=== PATIENT | female | born 1930 | race Caucasian/White ===

== ENCOUNTER 2016-10-24 11:09 | Inpatient (IN) ==
[2016-10-24] MEDS ORDERED: VISTARIL INJ IM PRN (11:29)
[2016-10-24] MEDS ORDERED: ATROPINE SULFATE PFS IVP PRN (11:29)
[2016-10-24] MEDS ORDERED: TYLENOL PO PRN (11:29)
[2016-10-24] MEDS ORDERED: NITROSTAT SL PRN (11:29)
[2016-10-24] MEDS ORDERED: MORPHINE 4 MG/ML SYRINGE IVP PRN (11:29)
[2016-10-24] MEDS ORDERED: PHENERGAN WITH CODEINE 6.25/10 MG/5 ML PO PRN (11:29)
[2016-10-24 11:42] VITALS: BMI 23.1
[2016-10-24 11:59] LABS: BASOPHILS % (AUTO) 0.5 % (0.0-3.0); EOSINOPHILS # (AUTO) 0.1 K/ul (0.0-0.7); EOSINOPHILS % (AUTO) 0.9 % (0.0-7.0); HEMATOCRIT 40.9 % (37.0-47.0); HEMOGLOBIN 13.3 g/dl (12.0-16.0); IMMATURE GRANULOCYTE % (AUTO) 0.6 % (0.0-5.0); LYMPHOCYTES # (AUTO) 1.7 K/uL (0.60-3.4); LYMPHOCYTES % (AUTO) 25.7 (10.0-50.0); MEAN CORPUSCULAR HEMOGLOBIN 27.5 pg (27.0-31.0); MEAN CORPUSCULAR HGB CONC 32.5 (31.8-35.4); MEAN CORPUSCULAR VOLUME 84.5 fl (81.0-99.0); MONOCYTES # (AUTO) 0.6 K/uL (0.4-2.0); MONOCYTES % (AUTO) 8.8 (0-10); NEUTROPHILS # (AUTO) 4.2 K/ul (2.0-6.9); NEUTROPHILS % (AUTO) 63.5; PLATELET COUNT 182 10^3/uL (140-440); RED BLOOD COUNT 4.84 10^6/ul (4.20-5.40); WHITE BLOOD COUNT 6.61 K/ul (4.6-10.2)
[2016-10-24] MEDS ORDERED: DUONEB NEB ONE (12:01)
[2016-10-24] MEDS: DEXTROSE 5%-1/2NS IV SOLUTION 1,000 ML IV SCH (12:01)
[2016-10-24] MEDS: ALBUTEROL 0.083% NEB NEB SCH ×3 (12:07→23:12)
[2016-10-24] MEDS: ROCEPHIN 1 GM in SODIUM CHLORIDE 50 ML IV SCH (13:15)
[2016-10-24] MEDS ORDERED: NAPROXEN SODIUM PO PRN (13:44)
[2016-10-24] MEDS: SOLU-MEDROL 125 MG IVP SCH ×2 (13:49→20:21)
[2016-10-24] MEDS ORDERED: NITROSTAT SL SCH (14:00)
[2016-10-24 14:15] LABS: ALBUMIN 3.5 g/dL (3.4-5.0); ALBUMIN/GLOBULIN RATIO 0.88; ANION GAP 14.8; BILIRUBIN,TOTAL 1.14 mg/dL (0.00-1.20); BUN/CREATININE RATIO 17.85; CALCIUM 10.5 mg/dL (8.2-10.2); CREATININE 1.12 mg/dL (0.60-1.30); POTASSIUM 3.8 mmol/L (3.5-5.10); TOTAL PROTEIN 7.5 g/dL (5.8-8.1); TROPONIN I 0.02 ng/ml (0.0000-0.4000)
--- NOTE | 2016-10-24 14:16 | DI ---
EXAM: Chest two view, frontal and lateral views. HISTORY: Persistent cough. COMPARISON: 09/12/2016. FINDINGS: The heart size is normal. Stent present in the region of the left subclavian artery. The re is no pulmonary vascular congestion. The lungs are clear save for calcified granulomatous change s. No pleural effusion or pneumothorax is seen. No acute osseous abnormality identified. IMPRESSION: No acute cardiopulmonary process.
[2016-10-24] MEDS: ZITHROMAX 500 MG in SODIUM CHLORIDE 250 ML IV SCH (14:19)
[2016-10-24] MEDS: COLACE PO SCH ×2 (15:12→20:23)
[2016-10-24] MEDS: GLUCOPHAGE PO SCH (16:55)
[2016-10-24] MEDS: LASIX TAB PO SCH (16:55)
[2016-10-24] MEDS ORDERED: NON-FORMULARY MEDICATION (Metformin Hcl [Glucophage] 1,000 MG) PO SCH ×22 (17:30)
[2016-10-24 19:54] LABS: TROPONIN I 0.023 ng/ml (0.0000-0.4000)
[2016-10-24] MEDS: ARICEPT PO SCH (20:22)
[2016-10-24] MEDS: COZAAR PO SCH (20:22)
[2016-10-24] MEDS: NAMENDA PO SCH (20:22)
[2016-10-24] MEDS: CARDIZEM PO SCH (20:23)
[2016-10-24] MEDS: ZOCOR PO SCH (20:23)
[2016-10-24] MEDS ORDERED: NON-FORMULARY MEDICATION (Donepezil Hcl [Aricept] 5 MG) PO SCH ×11 (21:00)
[2016-10-24] MEDS ORDERED: ASPIRIN EC PO SCH (21:00)
[2016-10-25 01:06] LABS: BILIRUBIN,URINE Negative (NEGATIVE); KETONES,URINE Negative (NEGATIVE); LEUKOCYTE ESTERASE ,URINE Negative (NEGATIVE); NITRITE,URINE Negative (NEGATIVE); PH,URINE 6.5 (5-9); PROTEIN,URINE Negative (NEGATIVE); URINE, BLOOD Negative (NEGATIVE)
[2016-10-25 01:07] LABS: ADD URINE MICROSCOPIC NO
[2016-10-25] MEDS: DEXTROSE 5%-1/2NS IV SOLUTION 1,000 ML IV SCH (01:39)
[2016-10-25 04:47] LABS: BASOPHILS % (AUTO) 0.4 % (0.0-3.0); HEMATOCRIT 33.7 % (37.0-47.0); IMMATURE GRANULOCYTE % (AUTO) 0.6 % (0.0-5.0); LYMPHOCYTES # (AUTO) 0.6 K/uL (0.60-3.4); LYMPHOCYTES % (AUTO) 11.9 (10.0-50.0); MEAN CORPUSCULAR HEMOGLOBIN 27.8 pg (27.0-31.0); MEAN CORPUSCULAR HGB CONC 32.6 (31.8-35.4); MEAN CORPUSCULAR VOLUME 85.3 fl (81.0-99.0); MONOCYTES # (AUTO) 0.1 K/uL (0.4-2.0); MONOCYTES % (AUTO) 1.6 (0-10); NEUTROPHILS # (AUTO) 4.2 K/ul (2.0-6.9); NEUTROPHILS % (AUTO) 85.5; PLATELET COUNT 133 10^3/uL (140-440); RED BLOOD COUNT 3.95 10^6/ul (4.20-5.40); WHITE BLOOD COUNT 4.87 K/ul (4.6-10.2)
[2016-10-25] MEDS: ALBUTEROL 0.083% NEB NEB SCH ×4 (05:05→23:04)
[2016-10-25 05:15] LABS: ALBUMIN 2.7 g/dL (3.4-5.0); ALBUMIN/GLOBULIN RATIO 0.82; ANION GAP 17.8; BILIRUBIN,TOTAL 0.58 mg/dL (0.00-1.20); BUN/CREATININE RATIO 17.46; CALCIUM 8.7 mg/dL (8.2-10.2); CREATININE 1.26 mg/dL (0.60-1.30); POTASSIUM 3.8 mmol/L (3.5-5.10)
[2016-10-25] MEDS: SOLU-MEDROL 125 MG IVP SCH ×3 (05:21→21:02)
[2016-10-25] MEDS: LASIX TAB PO SCH ×2 (05:33→17:08)
[2016-10-25] MEDS ORDERED: HUMULIN R SUBCUT PRN (05:54)
[2016-10-25] MEDS ORDERED: HUMULIN R ONE (05:57)
[2016-10-25] MEDS: HUMULIN R SUBCUT PRN ×4 (06:04→22:48)
[2016-10-25] MEDS: CARDIZEM PO SCH ×2 (08:45→21:01)
[2016-10-25] MEDS: BALANCED B-100 PO SCH (08:45)
[2016-10-25] MEDS: MULTIVITAMIN PO SCH (08:45)
[2016-10-25] MEDS: ROCEPHIN 1 GM in SODIUM CHLORIDE 50 ML IV SCH (08:45)
[2016-10-25] MEDS: GLUCOPHAGE PO SCH ×2 (08:45→17:08)
[2016-10-25] MEDS: ASPIRIN EC PO SCH (08:45)
[2016-10-25] MEDS: COLACE PO SCH ×3 (08:45→21:01)
[2016-10-25] MEDS ORDERED: IRON MINERALS PO SCH (09:00)
[2016-10-25] MEDS ORDERED: MULTIVITAMIN PO SCH (09:00)
[2016-10-25] MEDS ORDERED: B COMPLEX WITH VITAMIN C PO SCH (09:00)
[2016-10-25] MEDS: ZITHROMAX 500 MG in SODIUM CHLORIDE 250 ML IV SCH (09:50)
--- NOTE | 2016-10-25 10:03 | PCM.PROG ---
Attending Provider: ATTENDING PROVIDER: Dr. MONICA KUHN DATE OF SERVICE: 10/25/16 SUBJECTIVE: This 86 year old WHITE/ F was hospitalized 10/24/16. The patient is hospitalized with acute bronchitis, cough, congestion, and dehydration which was treated as an outpatient with steroids and antibiotics without much improvement. The patient's blood sugar is elevated this morning at 475, likely from steroids. REVIEW OF SYSTEMS: (All negative at rest) CONSTITUTIONAL: No night sweats. No fatigue, malaise, lethargy. No fever or chills. HEENT: Eyes: No visual changes. No eye pain. No eye discharge. ENT: No runny nose. No epistaxis. No sinus pain. No odynophagia. No congestion. RESPIRATORY: No cough, no congestion. No hemoptysis. CARDIOVASCULAR: No angina symptoms. No CHF symptoms. No atypical chest pain for CAD. No palpitations. No shortness of breath. GASTROINTESTINAL: No abdominal pain. No nausea or vomiting. No diarrhea or constipation. No hematemesis. No hematochezia. GENITOURINARY: No urgency. No frequency. No dysuria. No hematuria. No obstructive symptoms. No discharge. No pain. No significant abnormal bleeding. MUSCULOSKELETAL: No musculoskeletal pain; no joint swelling. NEUROLOGICAL: Awake, alert, oriented to person. No headache. No neck pain. No syncope. No seizures. No dizziness. PSYCHIATRIC: Not anxious. No depression. No suicidal thoughts. No homicidal thoughts. SKIN: No rash. No lesions. No wounds. ENDOCRINE: No unexplained weight loss. No weight gain. HEMATOLOGIC/LYMPHATIC: No anemia. No purpura. No petechiae. No prolonged or excessive bleeding. No palpable lymph nodes. PHYSICAL EXAMINATION: GENERAL: The patient is awake, alert and oriented to person in no distress. VITAL SIGNS: Temperature 97.2 F, Pulse 66, Respiratory Rate 12, BP 144/65, Pulse Ox 96% HEENT: Head normocephalic, atraumatic. Eyes: Extraocular muscles are intact. Pupils are equal, round and reactive to light and accommodation. Ears: No lesions. Nose appeared normal. Throat: No exudate or erythema. NECK: Supple. No JVD, no carotid bruit. No lymphadenopathy or thyromegaly. LUNGS: Decreased breath sounds with mild wheeze. Percussion note normal. Chest symmetrical. HEART: S1, S2, no S3. No murmurs. No cyanosis or clubbing. No ascites. Pulses: Dorsalis pedis and posterior tibial pulses +1 to +2 both sides. ABDOMEN: Soft. Non-tender. Bowel sounds active. No CVA tenderness. No mass felt. EXTREMITIES: No edema. Full range of motion of all extremities, equal. NEUROLOGIC: No focal deficit. Cranial nerves II through XII are grossly intact. No headache, no double vision or headache. SKIN: Not dry. Intact. Turgor-normal. LYMPHATIC: No palpable lymph nodes/no lymphedema. MUSCULOSKELETAL: Normal joints with no swelling. Muscle tone is normal. LAB REVIEW: 10/25/16 04:47 10/25/16 04:47 10/25/16 04:47: WBC 4.87, RBC 3.95 L, Hgb 11.0 L, Hct 33.7 L D, MCV 85.3, MCH 27.8, MCHC 32.6, RDW Coeff of Ray 13.9, Plt Count 133 L, Immature Gran % (Auto) 0.6, Neut % (Auto) 85.5, Lymph % (Auto) 11.9, [place] % (Auto) 1.6, Eos % (Auto) 0.0, Baso % (Auto) 0.4, Immature Gran # (Auto) 0.0, Neut # 4.2, Lymph # 0.6, [place] # 0.1 L, Eos # 0.0, Baso # 0.0, Sodium 138, Potassium 3.8, Chloride 99, Carbon Dioxide 25, Anion Gap 17.8, BUN 22 H, Creatinine 1.26, Estimated GFR ( MDRD) 40.00, BUN/Creatinine Ratio 17.46, Glucose 475 H D, Calcium 8.7, Total Bilirubin 0.58, AST 10 L, ALT 11 L, Alkaline Phosphatase 110 D, Total Protein 6.0, Albumin 2.7 L, Globulin 3.3, Albumin/Globulin Ratio 0.82 10/25/16 00:48: Urine Color Yellow, Urine Clarity Clear, Urine pH 6.5, Ur Specific [place] 1.015, Urine Protein Negative, Urine Glucose (UA) Negative, Urine Ketones Negative, Urine Blood Negative, Urine Nitrite Negative, Urine Bilirubin Negative, Urine Urobilinogen 0.2, Ur Leukocyte Esterase Negative 10/24/16 19:30: Total Creatine Kinase 16, Myoglobin 21, Troponin I 0.0230 10/24/16 11:45: WBC 6.61, RBC 4.84, Hgb 13.3, Hct 40.9, MCV 84.5, MCH 27.5, MCHC 32.5, RDW Coeff of Ray 14.1, Plt Count 182, Immature Gran % (Auto) 0.6, Neut % (Auto) 63.5, Lymph % (Auto) 25.7, [place] % (Auto) 8.8, Eos % (Auto) 0.9, Baso % (Auto) 0.5, Immature Gran # (Auto) 0.0, Neut # 4.2, Lymph # 1.7, [place] # 0.6, Eos # 0.1, Baso # 0.0, Sodium 141, Potassium 3.8, Chloride 99, Carbon Dioxide 31, Anion Gap 14.8, BUN 20 H, Creatinine 1.12, Estimated GFR (MDRD) 46.00, BUN/Creatinine Ratio 17.85, Glucose 190 H, Calcium 10.5 H, Total Bilirubin 1.14, AST 15, ALT 15, Alkaline Phosphatase 140, Total Creatine Kinase 20, Myoglobin 29, Troponin I 0.0200, Total Protein 7.5, Albumin 3.5, Globulin 4.0, Albumin/Globulin Ratio 0.88, TSH 0.789, Free T4 1.00 ASSESSMENT: 1. Acute bronchitis/COPD, improving 2. Dementia 3. Diabetes mellitus PLAN: 1. Discontinue IV fluids. 2. Regular diet. 3. Accu-Cheks. 4. Sliding scale with coverage (blood sugar is 475 this a.m. likely due to steroids) 5. Continue Steroids, antibiotics and nebs. Plan and coordination of the patient's care discussed in the presence of Economics Consultant and nurse. CONDITION: Stable SCRIBED BY: SADIE JOHNSON, Silk Spreader scribed while in presence of service performed by Dr. MONICA KUHN on 10/25/16 ([id number])
--- NOTE | 2016-10-25 15:10 | HP ---
DATE OF SERVICE: 10/24/16 REASON FOR HOSPITALIZATION/HISTORY OF PRESENT ILLNESS: Complaints of cough, congestion, sweats, lost five pounds in 2 weeks and yellowish sputum. On two rounds of Antibiotics with steroids and not much improvement. Appetite not good/staggering. The patient says she is weak. REVIEW OF SYSTEMS: CONSTITUTIONAL: Fever and fatigue. HEENT: Sinus drainage, no sore throat. RESPIRATORY: Cough, no congestion. CARDIOVASCULAR: No atypical chest pain for coronary artery disease. No angina , CHF symptoms, palpitations. Mild shortness of breath. GASTROINTESTINAL: No melena or abdominal pain. No GERD. GENITOURINARY: No hematuria, no prostatism, no polyuria. PEDIATRICIAN: No blackout, Dizziness, no headache, no double vision. Gait ataxia. MUSCULOSKELETAL: Osteoarthritis pain, no joint swelling. ENDOCRINE: Weight loss-5 pounds in 2 weeks. No weight gain. SKIN: Dry, no rash. PSYCHIATRIC: Anxious, no depression, no suicidal thoughts, no homicidal thoughts. SOCIAL HISTORY: Marital Status: with 8 children and 3 alive. Alcohol Usage: No . Tobacco Usage: No . Family history: Father TIA and cancer of the lung, Mother diabetes mellitus and chronic kidney disease, Brothers two one hypertension and cancer of bladder and one is 71 years old with diabetes mellitus. One sister 87 year old diabetes mellitus, hypertension and vascular disease. PAST MEDICAL AND SURGICAL HISTORY: COPD Hypertension/LVH Dyslipidemia Carotid stenosis Chronic kidney disease Diabetes Mellitus type 2 Congestive heart disease Partial abdominal hysterectomy-1977 Tonsillectomy- childhood. Adenoidectomy-childhood. MEDICATIONS: Namenda 10mg PO twice a day Aricept 5mg PO daily Simvastatin 40mg PO daily Meclizine 12.5mg PO three times a day Glimepiride 2mg PO daily Carvedilol 12.5mg PO twice a day Brovana 15mcg inhale 2 milliliters by inhalation twice a day Losartan 50mg PO daily Metformin 1,000mg PO twice a day with morning and evening meals. Furosemide 40mg take one tablet PO twice a day Albuterol Sulfate inhale 3 milliliters by nebulization Nitroglycerin 0.4mg sublingual as first sign of an attack Proventil 90mcg inhale 2 puffs by inhalation every 6 hours Fish oil 1000 tablet take two PO twice a day Aspirin 81mg PO daily Spectravite once daily 2 fruit chews Aleve 2 tablets PO pain PRN Super B complex one pill in AM Diltiazem 60mg One am and One PM. ALLERGIES: No know allergies PHYSICAL EXAMINATION: V/S: Pulse 100, blood pressure 142/6, Temperature 98 and O2 Sat 92%. GENERAL APPEARANCE: Oriented times three. HEENT: Normal. NECK: No JVP, no bruits. RESPIRATORY: Lungs are clear, decreased breath sounds. CARDIOVASCULAR: S1, S2, no S3, no murmurs. No cyanosis, clubbing. No ascites. GI/ABDOMEN: No tenderness. Bowel sounds are active. EXTREMITIES: edema, pulses +1, equal. PEDIATRICIAN: Deep tendon reflexes, sensory, motor and gait all normal. RECTAL: Refused. PELVIC: Advised yearly; Cervix, vaginal, ovaries, Papsmear and breast examinations. Refused bone density, discussed foot care and refused Colocare. ASSESSMENT: 1. Acute bronchitis 2. Weakness 3. Ataxia 4. Pleuritic pain 5. COPD 6. Dementia 7. Hypertension/ LVH 8. Dyslipidemia 9. Carotid stenosis 10. 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 Cath 2006 Dr. Morgan 13. Vitamin B12 deficiency PLAN: 1. Admit regular 2. Telemetry orders 3. Sputum for culture 4. Blood cultures x2 5. 1000 cc D5/1/2 normal saline 12 hourly 6. Rocephin 1 gram IV Piggyback 24 hours 7. Zithromax 500mg PO daily x3 8. CBC and CMP daily AM 9. Continue all home medications. 10. Solu-Medrol 125mg IV now and Q 8 hourly 11. NEBS- Albuterol four times a day daily 12. T4 and TSH 13. Phenergan with codeine two teaspoons PO four times a day PRN for cough 14. Colace 100mg three times a day daily. TIME SPENT: More than 70 minutes. MTDD
[2016-10-25] MEDS: NAMENDA PO SCH (21:00)
[2016-10-25] MEDS: ZOCOR PO SCH (21:00)
[2016-10-25] MEDS: COZAAR PO SCH (21:01)
[2016-10-25] MEDS: ARICEPT PO SCH (21:01)
[2016-10-26] MEDS: ALBUTEROL 0.083% NEB NEB SCH ×4 (04:58→22:38)
[2016-10-26] MEDS: LASIX TAB PO SCH ×2 (05:44→16:58)
[2016-10-26] MEDS: SOLU-MEDROL 125 MG IVP SCH (05:45)
[2016-10-26] MEDS: HUMULIN R SUBCUT PRN ×4 (06:40→22:11)
[2016-10-26 06:43] LABS: BASOPHILS % (AUTO) 0.1 % (0.0-3.0); HEMATOCRIT 36.2 % (37.0-47.0); HEMOGLOBIN 11.8 g/dl (12.0-16.0); LYMPHOCYTES # (AUTO) 0.8 K/uL (0.60-3.4); LYMPHOCYTES % (AUTO) 4.2 (10.0-50.0); MEAN CORPUSCULAR HEMOGLOBIN 27.5 pg (27.0-31.0); MEAN CORPUSCULAR HGB CONC 32.6 (31.8-35.4); MEAN CORPUSCULAR VOLUME 84.4 fl (81.0-99.0); MONOCYTES # (AUTO) 0.4 K/uL (0.4-2.0); MONOCYTES % (AUTO) 2.4 (0-10); NEUTROPHILS # (AUTO) 16.5 K/ul (2.0-6.9); NEUTROPHILS % (AUTO) 92.3; PLATELET COUNT 163 10^3/uL (140-440); RED BLOOD COUNT 4.29 10^6/ul (4.20-5.40); WHITE BLOOD COUNT 17.91 K/ul (4.6-10.2)
[2016-10-26 07:21] LABS: ALBUMIN 3.2 g/dL (3.4-5.0); ALBUMIN/GLOBULIN RATIO 0.86; ANION GAP 21.3; BILIRUBIN,TOTAL 0.46 mg/dL (0.00-1.20); BUN/CREATININE RATIO 18.11; CALCIUM 9.4 mg/dL (8.2-10.2); CREATININE 1.38 mg/dL (0.60-1.30); POTASSIUM 3.3 mmol/L (3.5-5.10); TOTAL PROTEIN 6.9 g/dL (5.8-8.1)
[2016-10-26] MEDS ORDERED: KEFLEX PO SCH (09:00)
--- NOTE | 2016-10-26 09:18 | PCM.PROG ---
Attending Provider: ATTENDING PROVIDER: Dr. MONICA KUHN DATE OF SERVICE: 10/26/16 SUBJECTIVE: This 86 year old WHITE/ F was hospitalized 10/24/16. The patient is admitted with acute bronchitis. The patient is feeling much better. She has been up and about with assistance. REVIEW OF SYSTEMS: CONSTITUTIONAL: No night sweats. No fatigue, malaise, lethargy. No fever or chills. HEENT: Eyes: No visual changes. No eye pain. No eye discharge. ENT: No runny nose. No epistaxis. No sinus pain. No odynophagia. No congestion. RESPIRATORY: No cough, no congestion. No hemoptysis. CARDIOVASCULAR: No angina symptoms. No CHF symptoms. No atypical chest pain for CAD. No palpitations. No shortness of breath. GASTROINTESTINAL: No abdominal pain. No nausea or vomiting. No diarrhea or constipation. No hematemesis. No hematochezia. GENITOURINARY: No urgency. No frequency. No dysuria. No hematuria. No obstructive symptoms. No discharge. No pain. No significant abnormal bleeding. MUSCULOSKELETAL: No musculoskeletal pain; no joint swelling. NEUROLOGICAL: Awake, alert, oriented to time, place and person. No headache. No neck pain. No syncope. No seizures. No dizziness. PSYCHIATRIC: Not anxious. No depression. No suicidal thoughts. No homicidal thoughts. SKIN: No rash. No lesions. No wounds. ENDOCRINE: No unexplained weight loss. No weight gain. HEMATOLOGIC/LYMPHATIC: No anemia. No purpura. No petechiae. No prolonged or excessive bleeding. No palpable lymph nodes. PHYSICAL EXAMINATION: GENERAL: The patient is awake, alert and oriented, sitting in chair in no distress. VITAL SIGNS: Temperature 97.8 F, Pulse 97, Respiratory Rate 14, BP 140/65, Pulse Ox 97% HEENT: Head normocephalic, atraumatic. Eyes: Extraocular muscles are intact. Pupils are equal, round and reactive to light and accommodation. Ears: No lesions. Nose appeared normal. Throat: No exudate or erythema. NECK: Supple. No JVD, no carotid bruit. No lymphadenopathy or thyromegaly. LUNGS: Decreased breath sounds. Clear to auscultation. Percussion note normal. Chest symmetrical. HEART: S1, S2, no S3. No murmurs. No cyanosis or clubbing. No ascites. Pulses: Dorsalis pedis and posterior tibial pulses +1 to +2 both sides. ABDOMEN: Soft. Non-tender. Bowel sounds active. No CVA tenderness. No mass felt. EXTREMITIES: No edema. Full range of motion of all extremities, equal. NEUROLOGIC: No focal deficit. Cranial nerves II through XII are grossly intact. No headache, no double vision or headache. SKIN: Not dry. Intact. Turgor-normal. LYMPHATIC: No palpable lymph nodes/no lymphedema. MUSCULOSKELETAL: Normal joints with no swelling. Muscle tone is normal. LAB REVIEW: 10/26/16 05:30 10/26/16 05:30 10/26/16 05:30: WBC 17.91 H D, RBC 4.29, Hgb 11.8 L, Hct 36.2 L, MCV 84.4, MCH 27.5, MCHC 32.6, RDW Coeff of Ray 14.1, Plt Count 163, Immature Gran % (Auto) 1.0, Neut % (Auto) 92.3, Lymph % (Auto) 4.2 L, [place] % (Auto) 2.4, Eos % (Auto) 0.0, Baso % (Auto) 0.1, Immature Gran # (Auto) 0.2, Neut # 16.5 H, Lymph # 0.8, Iron # 0.4, Eos # 0.0, Baso # 0.0, Sodium 139, Potassium 3.3 L, Chloride 97 L, Carbon Dioxide 24, Anion Gap 21.3, BUN 25 H, Creatinine 1.38 H, Estimated GFR ( MDRD) 36.00, BUN/Creatinine Ratio 18.11, Glucose 321 H, Calcium 9.4, Total Bilirubin 0.46, AST 10 L, ALT 14, Alkaline Phosphatase 114, Total Protein 6.9, Albumin 3.2 L, Globulin 3.7, Albumin/Globulin Ratio 0.86 ASSESSMENT: 1. Acute pneumonitis/dehydration all resolved 2. Dementia 3. Diabetes mellitus PLAN: 1. Solu-Cortef 2. Prednisone 10 mg p.o. b.i.d. 3. Keflex 500 mg t.i.d. daily for five days 4. Stop Rocephin Plan and coordination of the patient's care discussed in the presence of Community Organization Director and nurse. CONDITION: Stable SCRIBED BY: SADIE JOHNSON, Pillow Filler scribed while in presence of service performed by Dr. MONICA KUHN on 10/26/16 ([id number])
[2016-10-26] MEDS: BALANCED B-100 PO SCH (09:27)
[2016-10-26] MEDS: ASPIRIN EC PO SCH (09:27)
[2016-10-26] MEDS: CARDIZEM PO SCH ×2 (09:28→22:17)
[2016-10-26] MEDS: COLACE PO SCH ×3 (09:28→22:13)
[2016-10-26] MEDS: GLUCOPHAGE PO SCH ×2 (09:28→16:58)
[2016-10-26] MEDS: MULTIVITAMIN PO SCH (09:29)
[2016-10-26] MEDS: KEFLEX PO SCH ×3 (09:29→22:13)
[2016-10-26] MEDS: PREDNISONE PO SCH ×2 (09:30→17:28)
[2016-10-26] MEDS: ZITHROMAX 500 MG in SODIUM CHLORIDE 250 ML IV SCH (09:31)
[2016-10-26] MEDS: MICRO-K CAP PO SCH (22:14)
[2016-10-26] MEDS: NAMENDA PO SCH (22:16)
[2016-10-26] MEDS: COZAAR PO SCH (22:18)
[2016-10-26] MEDS: ZOCOR PO SCH (22:19)
[2016-10-26] MEDS: ARICEPT PO SCH (22:22)
[2016-10-27] MEDS: ALBUTEROL 0.083% NEB NEB SCH ×2 (05:04→11:15)
[2016-10-27] MEDS: KEFLEX PO SCH (05:52)
[2016-10-27] MEDS: LASIX TAB PO SCH (05:53)
[2016-10-27 06:24] LABS: BASOPHILS % (AUTO) 0.1 % (0.0-3.0); HEMATOCRIT 35.4 % (37.0-47.0); HEMOGLOBIN 11.7 g/dl (12.0-16.0); IMMATURE GRANULOCYTE % (AUTO) 1.6 % (0.0-5.0); LYMPHOCYTES # (AUTO) 1.1 K/uL (0.60-3.4); MEAN CORPUSCULAR HEMOGLOBIN 27.7 pg (27.0-31.0); MEAN CORPUSCULAR HGB CONC 33.1 (31.8-35.4); MEAN CORPUSCULAR VOLUME 83.9 fl (81.0-99.0); MONOCYTES # (AUTO) 0.5 K/uL (0.4-2.0); MONOCYTES % (AUTO) 2.6 (0-10); NEUTROPHILS # (AUTO) 16.8 K/ul (2.0-6.9); NEUTROPHILS % (AUTO) 89.7; PLATELET COUNT 179 10^3/uL (140-440); RED BLOOD COUNT 4.22 10^6/ul (4.20-5.40)
[2016-10-27] MEDS: HUMULIN R SUBCUT PRN (06:26)
[2016-10-27 06:54] LABS: ALBUMIN 3.3 g/dL (3.4-5.0); ALBUMIN/GLOBULIN RATIO 1.06; ANION GAP 17.5; BILIRUBIN,TOTAL 0.56 mg/dL (0.00-1.20); BUN/CREATININE RATIO 24.82; CALCIUM 9.8 mg/dL (8.2-10.2); CREATININE 1.45 mg/dL (0.60-1.30); POTASSIUM 3.5 mmol/L (3.5-5.10); TOTAL PROTEIN 6.4 g/dL (5.8-8.1)
[2016-10-27] MEDS: GLUCOPHAGE PO SCH (08:38)
[2016-10-27] MEDS: BALANCED B-100 PO SCH (08:38)
[2016-10-27] MEDS: MICRO-K CAP PO SCH (08:38)
[2016-10-27] MEDS: CARDIZEM PO SCH (08:38)
[2016-10-27] MEDS: PREDNISONE PO SCH (08:38)
[2016-10-27] MEDS: ASPIRIN EC PO SCH (08:38)
[2016-10-27] MEDS: COLACE PO SCH (08:38)
[2016-10-27] MEDS: MULTIVITAMIN PO SCH (08:39)
--- NOTE | 2016-10-27 09:48 | PCM.PROG ---
Attending Provider: ATTENDING PROVIDER: Dr. MONICA KUHN DATE OF SERVICE: 10/27/16 SUBJECTIVE: This 86 year old WHITE/ F was hospitalized 10/24/16. The patient is hospitalized with acute bronchitis/pneumonitis and dehydration. The patient' s condition is improved. She has no complaints this morning. REVIEW OF SYSTEMS: CONSTITUTIONAL: No night sweats. No fatigue, malaise, lethargy. No fever or chills. HEENT: Eyes: No visual changes. No eye pain. No eye discharge. ENT: No runny nose. No epistaxis. No sinus pain. No odynophagia. No congestion. RESPIRATORY: No cough, no congestion. No hemoptysis. CARDIOVASCULAR: No angina symptoms. No CHF symptoms. No atypical chest pain for CAD. No palpitations. No shortness of breath. GASTROINTESTINAL: Appetite is good. No abdominal pain. No nausea or vomiting. No diarrhea or constipation. No hematemesis. No hematochezia. GENITOURINARY: No urgency. No frequency. No dysuria. No hematuria. No obstructive symptoms. No discharge. No pain. No significant abnormal bleeding. MUSCULOSKELETAL: No musculoskeletal pain; no joint swelling. NEUROLOGICAL: Awake, alert, oriented to time, place and person. No headache. No neck pain. No syncope. No seizures. No dizziness. PSYCHIATRIC: Not anxious. No depression. No suicidal thoughts. No homicidal thoughts. SKIN: No rash. No lesions. No wounds. ENDOCRINE: No unexplained weight loss. No weight gain. HEMATOLOGIC/LYMPHATIC: No anemia. No purpura. No petechiae. No prolonged or excessive bleeding. No palpable lymph nodes. PHYSICAL EXAMINATION: GENERAL: The patient is awake, alert and oriented, sitting in bed in no distress. VITAL SIGNS: Temperature 97.7 F, Pulse 88, Respiratory Rate 14, BP 131/55, Pulse Ox 94% HEENT: Head normocephalic, atraumatic. Eyes: Extraocular muscles are intact. Pupils are equal, round and reactive to light and accommodation. Ears: No lesions. Nose appeared normal. Throat: No exudate or erythema. NECK: Supple. No JVD, no carotid bruit. No lymphadenopathy or thyromegaly. LUNGS: Clear to auscultation. Percussion note normal. Chest symmetrical. HEART: S1, S2, no S3. No murmurs. No cyanosis or clubbing. No ascites. Pulses: Dorsalis pedis and posterior tibial pulses +1 to +2 both sides. ABDOMEN: Soft. Non-tender. Bowel sounds active. No CVA tenderness. No mass felt. EXTREMITIES: No edema. Full range of motion of all extremities, equal. NEUROLOGIC: No focal deficit. Cranial nerves II through XII are grossly intact. No headache, no double vision or headache. SKIN: Not dry. Intact. Turgor-normal. LYMPHATIC: No palpable lymph nodes/no lymphedema. MUSCULOSKELETAL: Normal joints with no swelling. Muscle tone is normal. LAB REVIEW: 10/27/16 05:30 10/27/16 05:30 10/27/16 05:30: WBC 18.70 H, RBC 4.22, Hgb 11.7 L, Hct 35.4 L, MCV 83.9, MCH 27.7, MCHC 33.1, RDW Coeff of Ray 14.3, Plt Count 179, Immature Gran % (Auto) 1.6, Neut % (Auto) 89.7, Lymph % (Auto) 6.0 L, [place] % (Auto) 2.6, Eos % (Auto) 0.0, Baso % (Auto) 0.1, Immature Gran # (Auto) 0.3, Neut # 16.8 H, Lymph # 1.1, [place] # 0.5, Eos # 0.0, Baso # 0.0, Sodium 137, Potassium 3.5, Chloride 94 L, Carbon Dioxide 29, Anion Gap 17.5, BUN 36 H, Creatinine 1.45 H, Estimated GFR ( MDRD) 34.00, BUN/Creatinine Ratio 24.82, Glucose 309 H, Calcium 9.8, Total Bilirubin 0.56, AST 16, ALT 17, Alkaline Phosphatase 113, Total Protein 6.4, Albumin 3.3 L, Globulin 3.1, Albumin/Globulin Ratio 1.06 ASSESSMENT: 1. Acute bronchitis, pneumonitis and dehydration resolved. 2. COPD. PLAN: 1. Discharge home. 2. Keflex 500 mg b.i.d times 5 days. 3. D/C telemetry. 4. Prednisone 10 mg p.o. b.i.d. for five days. Plan and coordination of the patient's care discussed in the presence of Enterprise Resource Planner and nurse. CONDITION: Stable SCRIBED BY: SADIE JOHNSON, Auto Haulaway Driver scribed while in presence of service performed by Dr. MONICA KUHN on 10/27/16 ([id number])
[2016-10-27 10:20] VITALS: BP 146/54; TEMP 98.1
--- NOTE | 2016-10-27 13:45 | CM.DICTOOL ---
ADMISSION: 10/24/16 11:09 DISCHARGE: 10/27/16 DATE OF SERVICE: 10/27/16 FINAL DIAGNOSIS ACUTE BRONCHITIS COPD HYPERTENSION CAD DYSLIPIDEMIA DM, TYPE 2 ARTHRITIS DEMENTIA APPENDECTOMY HYSTERECTOMY LAST VITALS Temp Pulse Resp BP Pulse Ox 97.7 F 88 14 131/55 L 94 L 10/27/16 06:00 10/27/16 06:00 10/27/16 06:00 10/27/16 06:00 10/27/16 06:00 ACTIVE HOME MEDICATIONS Aspirin (Aspirin Ec) 81 mg PO DAILYWM [facility] Last Admin: 10/27/16 08:38 Dose: 81 mg Cephalexin (Keflex) 500 mg PO Q8HR [facility] x5 DAYS Last Admin: 10/27/16 05:52 Dose: 500 mg Diltiazem HCl (Cardizem) 60 mg PO Q12HR [facility] Last Admin: 10/27/16 08:38 Dose: 60 mg Donepezil HCl (Aricept) 5 mg PO BEDTIME [facility] Last Admin: 10/26/16 22:22 Dose: 5 mg Furosemide (Lasix Tab) 40 mg PO BIDAC [facility] Last Admin: 10/27/16 05:53 Dose: 40 mg Losartan Potassium (Cozaar) 50 mg PO BEDTIME [facility] Last Admin: 10/26/16 22:18 Dose: 50 mg Memantine (Namenda) 10 mg PO BEDTIME [facility] Last Admin: 10/26/16 22:16 Dose: 10 mg Metformin HCl (Glucophage) 1,000 mg PO BIDWM [facility] Last Admin: 10/27/16 08:38 Dose: 1,000 mg Multivitamins (Multivitamin) 2 cap PO DAILY [facility] Last Admin: 10/27/16 08:39 Dose: 2 cap Nitroglycerin (Nitrostat) 0.4 mg SL Q5MIN X 3 DOSES PRN PRN Reason: Chest Pain Non-Formulary Medication (Naproxen Sodium [Aleve]) 2 tab PO DAILY PRN PRN Reason: pain Potassium Chloride (Micro-K Cap) 10 meq PO BID [facility] Last Admin: 10/27/16 08:38 Dose: 10 meq Prednisone (Prednisone) 10 mg PO BIDWM [facility] x 5 DAYS Last Admin: 10/27/16 08:38 Dose: 10 mg Simvastatin (Zocor) 40 mg PO BEDTIME [facility] Last Admin: 10/26/16 22:19 Dose: 40 mg Vitamin B Complex with Vitamin C 1 tab DAILY [facility] Last Admin: 10/27/16 08:38 Dose: 1 tab denotes medications that were added during this hospital stay that will be continued at discharge ALLERGIES No Known Allergies Allergy (Verified 07/03/16 10:24) NEW PRESCRIPTIONS: PREDNISONE 10 MG, TAKE ONE TABLET BY MOUTH TWICE DAILY WITH FOOD FOR 5 (FIVE) DAYS MICRO K 10 MEQ, TAKE ONE TABLET BY MOUTH DAILY KEFLEX 500 MG, TAKE ONE TABLET BY MOUTH EVERY 12 HOURS FOR 5 (FIVE) DAYS ONLY SMOKING: NON SMOKER DISEASE SPECIFIC EDUCATION: BRONCHITIS/PNEUMONITIS HOME MEDICATIONS NEW PRESCRIPTIONS FOLLOW UP ACTIVITY NUTRITION ADVANCE DIRECTIVE/LIVING WILL LAB REVIEW: 10/27/16 05:30 10/27/16 05:30 10/27/16 05:30: WBC 18.70 H, RBC 4.22, Hgb 11.7 L, Hct 35.4 L, MCV 83.9, MCH 27.7, MCHC 33.1, RDW Coeff of Ray 14.3, Plt Count 179, Immature Gran % (Auto) 1.6, Neut % (Auto) 89.7, Lymph % (Auto) 6.0 L, [place] % (Auto) 2.6, Eos % (Auto) 0.0, Baso % (Auto) 0.1, Immature Gran # (Auto) 0.3, Neut # 16.8 H, Lymph # 1.1, [place] # 0.5, Eos # 0.0, Baso # 0.0, Sodium 137, Potassium 3.5, Chloride 94 L, Carbon Dioxide 29, Anion Gap 17.5, BUN 36 H, Creatinine 1.45 H, Estimated GFR ( MDRD) 34.00, BUN/Creatinine Ratio 24.82, Glucose 309 H, Calcium 9.8, Total Bilirubin 0.56, AST 16, ALT 17, Alkaline Phosphatase 113, Total Protein 6.4, Albumin 3.3 L, Globulin 3.1, Albumin/Globulin Ratio 1.06 PLAN: DISCHARGE HOME TODAY RETURN TO SEE DR. KUHN IN 5-7 DAYS. PLEASE CALL HIS OFFICE ([phone]) TO SCHEDULE YOUR FOLLOW UP VISIT RESUME YOUR HOME MEDICATIONS PER LIST PROVIDED BY THE NURSING STAFF NEW PRESCRIPTIONS: PREDNISONE 10 MG, TAKE ONE TABLET BY MOUTH TWICE DAILY WITH FOOD FOR 5 (FIVE) DAYS MICRO K 10 MEQ, TAKE ONE TABLET BY MOUTH DAILY KEFLEX 500 MG, TAKE ONE TABLET BY MOUTH EVERY 12 HOURS FOR 5 (FIVE) DAYS ONLY ACTIVITY: GET PLENTY OF REST AT HOME. GRADUALLY INCREASE YOUR ACTIVITY LEVEL (WALK DAILY ) ACCORDING TO YOUR TOLERATION DIET: CONSISTENT CARBS STAY WELL HYDRATED SUMMARY: THE PATIENT IS ALERT AND ORIENTED X3. SHE CURRENTLY RESIDES AT HOME ALONE. HER BROTHER IS VERY SUPPORTIVE OF HER NEEDS AND PROVIDES TRANSPORTATION WHEN NEEDED. AT HOME SHE HAS A ROLLATOR, CANES X2, BSC, SHOWER CHAIR, OXYGEN ( [facility] HOME PATIENT), PORTABLE O2 SYSTEM X2 ([facility] HOME PATIENT), NEBULIZER ([facility] HOME PATIENT), GLUCOMETER AND BLOOD SUGAR TESTING SUPPLIES, PORTABLE BLOOD PRESSURE MONITOR. SHE DECLINES OFFERS FOR OUTPATIENT CASE MANAGEMENT BY [facility]. SHE DESIRES TO RETURN TO HER HOME AT DISCHARGE. MS. VOSS'S SKIN TURGOR IS FAIR TO GOOD. SHE HAS NO DECUBITUS ULCERS PRESENT AT DISCHARGE. HER HYDRATION STATUS IS IMPROVED. SHE IS TAKING LIQUIDS AND EATING VERY WELL. SHE IS AWARE OF DISCHARGE PLANS AND IS AGREEABLE FOR DISCHARGE TODAY. MONICA KUHN M.D.
--- NOTE | 2016-11-01 14:07 | DS ---
DATE OF SERVICE: 10/27/16 FINAL DIAGNOSIS: 1. ACUTE BRONCHITIS 2. COPD 3. HYPERTENSION 4. CAD 5. DYSLIPIDEMIA 6. DIABETES MELLITUS, TYPE 2 7. ARTHRITIS 8. DEMENTIA 9. APPENDECTOMY 10. HYSTERECTOMY DISCHARGE INSTRUCTIONS: Followup appointment: Return to see Dr. Davidson in 5 to 7 days. MEDICATIONS AT DISCHARGE: Simvastatin 40 mg p.o. bedtime Metformin 1,000 mg p.o. b.i.d. with meal Losartan (Cozaar) 50 mg p.o. bedtime Memantine (Namenda) 10 mg p.o. bedtime Donepezil (Aricept) 5 mg p.o. bedtime B complex with Vitamin C one each p.o. daily Multivitamin two each p.o. daily Aspirin 81 mg two tab p.o. bedtime Diltiazem (Cardizem) 60 mg p.o. q.12hr Nitroglycerin 0.4 mg SL as directed Naproxen (Aleve) two tab p.o. daily p.r.n. Furosemide 40 mg p.o. b.i.d. NEW PRESCRIPTIONS: Prednisone 10 mg one tablet by mouth twice daily with food for 5 days Micro K 10 mEq take one tablet by mouth daily Keflex 500 mg one tablet by mouth every 12 hours for 5 days only DIET INSTRUCTIONS: Consistent carbs. Stay well-hydrated. ACTIVITY: Get plenty of rest at home. Gradually increase your activity level (walk daily ) according to your toleration. SMOKING: Nonsmoker DISEASE SPECIFIC EDUCATION: Bronchitis/pneumonitis Home medications New prescriptions Follow up Activity Nutrition Advance directive/living will HOSPITAL COURSE: 86-year-old white female hospitalized with acute bronchitis, pneumonitis, COPD, dehydration. The patient was treated with IV antibiotics, Rocephin and Zithromax. The patient was discharged on Keflex to be taken for five days along with Prednisone. During the stay in the hospital, IV Solu-Cortef was used. Nebs treatment was also used. The patient, at time of discharge, had no symptoms of bronchitis. She was feeling better, appetite had improved. She was walking by herself. CONDITION AT TIME OF DISCHARGE: Stable. LAB DATA: On discharge hemoglobin was 11.7, hematocrit 35, WBC 18,000 from steroid therapy. Creatinine 1.3, BUN 25, potassium 3.3, glucose 321 because of steroids. CONDITION: Stable. TIME SPENT: More than 60 minutes. MTDD
== END 2016-10-27 11:45 | disposition home or self-care (01) | DRG 190 ==
LOC: MEDSURG B 11:09
PROVIDERS: ADMIT Internal Medicine; ATTEND Internal Medicine
DX: J44.0 Chronic obstructive pulmonary disease with (acute) lower respiratory infection (principal); J18.9 Pneumonia, unspecified organism; J20.9 Acute bronchitis, unspecified; F03.90 Unspecified dementia, unspecified severity, without behavioral disturbance, psychotic disturbance, mood disturbance, and anxiety; E11.9 Type 2 diabetes mellitus without complications; E86.0 Dehydration; I10 Essential (primary) hypertension; I25.10 Atherosclerotic heart disease of native coronary artery without angina pectoris; M19.90 Unspecified osteoarthritis, unspecified site; Z79.899 Other long term (current) drug therapy
CPT/HCPCS: 36415; 80053; 81001; 82550; 82962; 83874; 84439; 84443; 84484; 85025; 87040; 87070; 93005; 93010; 94640

== ENCOUNTER 2016-11-10 11:55 | Outpatient (CLI) | payer OTHER ==
[2016-11-10 12:26] LABS: CREATININE 1.52 mg/dL (0.60-1.30)
--- NOTE | 2016-11-10 14:41 | MRI ---
EXAM: MRI brain without IV contrast. DATE: 11/10/2016. HISTORY: Dizziness, ataxia. TECHNIQUE: Sagittal T1W, axial T2W, axial FLAIR, axial T1W, axial DWI, and coronal T2W GRE sequence s of the brain were obtained using 1.2 Vibha magnet. No IV contrast. COMPARISON: MRI brain 09/02/2014. FINDINGS: The lateral ventricles, third ventricle, Sylvian fissures are upper normal/mildly promine nt. Many cerebral sulci (especially frontal and parietal) are enlarged, along with enlargement as C SF spaces overlying the superior vertex of the brain due to atrophy. No midline shift, mass effect or abnormal extra-axial fluid collection is apparent. No acute infarct, hemorrhage or neoplasm is i dentified. Minimal T2W/FLAIR hyperintensity is seen in the white matter abutting each lateral ventr icle. Small number 2-5 mm, T2W/FLAIR bright foci are scattered in the barone radiata, centrum semio dre, and subcortical white matter - - changes are slightly more pronounced compared to August 4. The feliciano - white matter differentiation is normal. Tiny areas of T2W GRE dark signal within eac h basal ganglia benign. The 7th/8th cranial nerve complexes, cerebellopontine angles, brainstem, an d visible cervical spinal cord are normal. There is no cerebellar tonsillar ectopia. The pituitary gland is normal in size and signal. Corpus callosum is normal in size and configuration. Right ve rtebral artery is dominant. Flow voids are present in the major intracranial arteries and in the du ral venous sinuses. No aneurysm, AVM or dural venous sinus thrombosis is apparent. Appearance in t he lens of each eye suggest prior cataract surgery. No other orbit abnormality is identified. Righ t mastoid air cells are unremarkable. Many left mastoid air cells have reticular pattern T2W bright , T1W intermediate signal. There is mucosal thickening and an air-fluid level in the right maxillar y sinus. Partial opacification of several right ethmoid air cells is demonstrated. Small retention cyst vs mucous secretions is revealed at the posterior aspect of the sphenoid sinus. No neck mass or lymphadenopathy is detected. No calvarial neoplasm or acute fracture is evident. IMPRESSIONS: 1. No acute infarct, hemorrhage, mass or hydrocephalus. 2. Minor, benign bilateral basal ganglia mineral deposition. 3. Mild/moderate cerebral and minor cerebellar atrophy. 4. Mild supratentorial small vessel disease. 5. Ethmoid and right maxillary sinusitis. 6. Moderate left mastoid air cell disease.
== END 2016-11-10 11:56 | disposition home or self-care (01) ==
LOC: RAD 11:55
PROVIDERS: ATTEND Internal Medicine
DX: R27.0 Ataxia, unspecified (principal); R42 Dizziness and giddiness
CPT/HCPCS: 36415; 82565

== ENCOUNTER 2016-12-13 12:03 | Outpatient (CLI) ==
--- NOTE | 2016-12-13 13:29 | US ---
EXAM: Ultrasound bilateral carotid duplex HISTORY: Dizziness COMPARISON: Carotid Doppler 09/02/2014 and MRI brain 11/10/2016 TECHNIQUE: Sonographic and color Doppler evaluation of the carotids were performed. FINDINGS: The right carotid is patent in appearance with mild scattered atherosclerotic plaque visualized. The right ICA peak systolic velocity measures 130 cm/sec which is minimally elevated. The ICA / CCA peak systolic velocity ratio is 1.8 and ICA end-diastolic velocity is 30 cm/sec. The left carotid is patent in appearance with mild scattered atherosclerotic plaque visualized. The left ICA peak systolic velocity measures 100 cm/sec which is normal. The left ICA / CCA peak systolic velocity ratio is 1.3 and ICA end-diastolic velocity is 20 cm/sec. Vertebral arteries demonstrate antegrade flow bilaterally. IMPRESSION: 1. Elevated right ICA peak systolic velocity with scattered atherosclerotic disease consistent with moderate, 50 - 69% narrowing. 2. Mild scattered atherosclerotic disease of the left ICA with no elevated Doppler velocity to sugg est hemodynamically significant stenosis.
== END 2016-12-13 12:04 | disposition home or self-care (01) ==
LOC: RAD 12:03
PROVIDERS: ATTEND Internal Medicine
DX: R42 Dizziness and giddiness (principal)

== ENCOUNTER 2017-04-10 06:25 | Outpatient (CLI) ==
--- NOTE | 2017-04-11 10:22 | ECHO2D ---
Date of Exam: 04/10/17 Ordering Physician: MONICA KUHN Reason for Echo: CHF, LVH, HTN, SURG CLEARANCE M-Mode Normal Adult Results LV Dimensions Normal Adult Results AoV Opening excursions >1.6 >1.6 LVEDD-base- 3.5-5.8 4.6 Ao root dimensions 2.0-3.7 3.2 LVESD-base- 3.1-4.6 L. Atrium dimensions 1.9-3.8 3.7 Post. Wall thickness 0.8-1.1 1.1 IV septum (thickness) 0.7-1.2 1.1 Post. Wall excursion 0.72-1.3 NORMAL Septal motion NORMAL Systolic motion R. Ventricular cavity 1.5-2.0 NORMAL LVEF 60% 59% Paradoxical septal wall motion NORMAL 2-D : 2-D M Mode Echocardiogram was performed using apical four chamber and left parasternal long and short axis views. Mitral, tricuspid and aortic valves appear to be normal. Contractility of the left ventricle seems to be normal, so is the cavity size. Left atrial cavity size and aortic root appear to be normal. There is no pericardial effusion. There is no thrombus noted in the left ventricular or left aortic cavity. No mitral valve prolapse noted. M-MODE: MV: NORMAL AV: NORMAL TV: NORMAL PV: CHAMBER SIZE: NORMAL WALL MOTION: NORMAL PERICARDIUM: NORMAL INTERPRETATION: 1. NORMAL 2 "D" "M" MODE ECHO MTDD
== END 2017-04-10 06:26 | disposition home or self-care (01) ==
LOC: CAR 06:25
PROVIDERS: ATTEND Internal Medicine
DX: I50.9 Heart failure, unspecified (principal); I10 Essential (primary) hypertension; I51.7 Cardiomegaly; R06.02 Shortness of breath; Z01.810 Encounter for preprocedural cardiovascular examination; C43.31 Malignant melanoma of nose
CPT/HCPCS: 93005; 93010

== ENCOUNTER 2017-12-11 17:31 | Emergency (ER) ==
[2017-12-11 17:40] VITALS: TEMP 98.3; BMI 22.6
--- NOTE | 2017-12-11 18:59 | ED.PDOC ---
General ED Provider: Dr. EVELIO ANDREW Chief Complaint: Wound Check Stated Complaint: Dog Scratch Rt Forearm and itching of eyes. Was visiting with family. Her granddaughter's dog was running and jumped up onto her lap and scratched her Rt forearm. Was scratched by dog on rt foresarm several days ago. Now area is redened and uncomfortable.Has been applying MILES and bandaid. Patient very anxious over situation. Has been experiencing itching and watering both eyes. No prurlent discharge.Denies other complaints. Brought in by her brother who is a retired Registed Nurse Time Seen by Physician: 18:45 Mode of Arrival: Walk-In Information Source: Patient, Family Exam Limitations: No limitations Primary Care Provider: MONICA KUHN Referred to ED by: PCP Nursing and Triage Documentation Reviewed and Agree: Yes Reviewed sepsis parameters & appropriate labs ordered?: Yes System Inflammatory Response Syndrome: Not Applicable Sepsis Protocol: For patient's 13 years and over: Temp is 96.8 and below OR 101 and greater Pulse >90 BPM Resp >20/minute Acutely Altered Mental Status Are patient's symptoms suggestive of a new infection, such as: -Pneumonia -Skin, Soft Tissue -Endocarditis -UTI -Bone, Joint Infection -Implantable Device -Acute Abdominal Infection -Wound Infection -Meningitis -Blood Stream Catheter Infection -Unknown System Inflammatory Response Syndrome: Not Applicable Trauma/Injury Complaint Exam - Trauma Complaint/Exam Location of Pain or Injury: Reports: RUE Mechanism of Injury: Reports: Other (Dog scratch) Symptoms Are: Still present Timing of Treatment: Immediate Initial Severity: Mild Current Severity: Moderate Aggravating: Reports: None Alleviating: Reports: Rest Associated Signs and Symptoms: Reports: Bruising. Denies: Confusion, Memory loss, Painful respiration, Dysphagia Related History: Denies: Similar episode : No Penetrating Injury Risk Factors: Reports: None Compartment Syndrome Risk Factors: Absent: Pain, Paralysis, Pallor Skin Findings: Present: Tenderness, Swelling, Abrasion (erythermatous small streak progressing proximallly up 2/3 forearm) Review of Systems - Review Of Systems Constitutional: Reports: No symptoms, Chills Eyes: Reports: No symptoms Ears, Nose, Mouth, Throat: Reports: No symptoms Respiratory: Reports: No symptoms Cardiac: Reports: No symptoms GI: Reports: No symptoms : Reports: No symptoms Musculoskeletal: Reports: No symptoms Skin: Reports: Other (abrasion and cellulitis Rt forearm) Neurological: Reports: Anxiety Endocrine: Reports: No symptoms Hematologic/Lymphatic: Reports: No symptoms All Other Systems: Reviewed and Negative Past Medical History - Past Medical History Previously Healthy: Yes Endocrine: Reports: DM 2, Dyslipidemia Cardiovascular: Reports: CAD, Hypertension Respiratory: Reports: COPD Hematological: Reports: None Gastrointestinal: Reports: None Genitourinary: Reports: None Neuro/Psych: Reports: None Musculoskeletal: Reports: Arthritis Cancer: Reports: None Last Menstrual Period: menopause - Surgical History General Surgical History: Reports: Hysterectomy, Appendectomy - Family History Family History: Reports: Unknown - Social History Smoking Status: Never smoker Hx Substance Use: No Alcohol Screening: None - Immunizations Tetanus Shot up to Date: No Physical Exam - Physical Exam Appearance: Well-appearing Ill-appearing: None Pain Distress: None Eyes: Conjunctiva inflammed ENT: Ears normal, Nose normal Neck: Supple Respiratory: Airway patent, Breath sounds clear, Breath sounds equal Cardiovascular: RRR, Pulses normal, No rub GI/: Soft, Nontender, No masses Musculoskeletal: Normal strength, ROM intact, No edema Skin: Warm (Erythrema mid dorsal Rt forearm with central abrasion. Light Erythrematous streak moving up forearm to elbow.) Neurological: Sensation intact, Motor intact, Alert, Oriented Psychiatric: Anxious Physician Notification - Case Discussed Physician Notified: Dr Martinez at 1930 and will accept patient through time of discharge Time of Notification: 19:30 Critical Care Note - Critical Care Note Total Time (mins): 0 Course - Course Orders, Labs, Meds: Orders Category Date Time Status Alprazolam [Xanax] MEDS 12/11/17 19:39 Stat 0.5 mg PO ONCE STA Amoxicillin/Potassium Clav [Augmentin 875-125 mg Tab] MEDS 12/11/17 19:23 Stat 1 tab PO ONCE STA Clonidine HCl [Catapres] MEDS 12/11/17 19:22 Stat 0.1 mg PO ONCE STA Diphth,Pertuss(Acell),Tet Vac [Boostrix] MEDS 12/11/17 19:10 Once 0.5 ml IM .ONCE ONE Medications Generic Name Dose Route Start Last Admin Trade Name Freq PRN Reason Stop Dose Admin Alprazolam 0.5 mg 12/11/17 19:39 Xanax PO 12/11/17 19:40 ONCE STA Discontinued Medications Generic Name Dose Route Start Last Admin Trade Name Grecia PRN Reason Stop Dose Admin Amoxicillin/Clavulanate Potassium 1 tab 12/11/17 19:23 12/11/17 19:26 Augmentin 875-125 Mg Tab PO 12/11/17 19:24 1 tab ONCE STA Administration Clonidine 0.1 mg 12/11/17 19:22 12/11/17 19:26 Catapres PO 12/11/17 19:23 0.1 mg ONCE STA Administration Diphtheria/Pertussis/Tetanus Vacc 0.5 ml 12/11/17 19:10 12/11/17 19:17 Boostrix IM 12/11/17 19:11 0.5 ml .ONCE ONE Administration Vital Signs: Temp Pulse Resp BP Pulse Ox 12/11/17 17:31 98.3 F 85 20 223/105 H 95 Departure - Departure Time of Disposition: 19:50 Disposition: HOME SELF-CARE Discharge Problem: Cellulitis, Dog scratch, Conjunctivitis, Acute anxiety Instructions: Cellulitis (ED), Anxiety (ED), Conjunctivitis (ED) Condition: Good Pt referred to PMD for follow-up: Yes IPMP verified?: No Prescriptions: Amoxicillin/Potassium Clav [Augmentin 875-125 Tablet] 1 each PO BID #20 tablet Prednisolone Opth Susp [Pred Forte 1% Opth Margareth] 1 drop OP BID 5 Days #5 ml Allergies/Adverse Reactions: Allergies No Known Allergies Allergy (Verified 12/11/17 17:41) Home Medications: Ambulatory Orders Metformin HCl [Glucophage] 1,000 mg PO BIDWM 04/23/13 Simvastatin [Zocor] 40 mg PO BEDTIME 04/23/13 Losartan Potassium [Cozaar] 50 mg PO BEDTIME 04/13/14 Aspirin [Aspirin EC] 2 tab PO BEDTIME 07/03/16 Donepezil HCl [Aricept] 5 mg PO BEDTIME 07/03/16 Memantine HCl [Namenda] 10 mg PO BEDTIME 07/03/16 Multivit with Iron,Minerals [Spectravite Senior] 2 each PO DAILY 07/03/16 Diltiazem HCl [Cardizem] 60 mg PO Q12HR #30 tablet 07/06/16 Furosemide [Lasix] 40 mg PO BID 10/24/16 Naproxen Sodium [Aleve] 2 tab PO DAILY PRN 10/24/16 Nitroglycerin [Nitrostat] 0.4 mg SL DIRECTED 10/24/16 Potassium Chloride [Micro-K Cap] 10 meq PO DAILY #30 capsule.er 10/27/16 Amoxicillin/Potassium Clav [Augmentin 875-125 Tablet] 1 each PO BID #20 tablet 12/11/17 Prednisolone Opth Susp [Pred Forte 1% Opth Margareth] 1 drop OP BID 5 Days #5 ml 12/11 Disposition Discussed With: Patient, Family Additional Information: BP markedly elevated. Monitored over 30 minutes and remains elevated Administered Clonidine 0.1 mg po Due to her anxiety -discussed with Dr Martinez patients attending. Suggest to administer xanax
[2017-12-11] MEDS ORDERED: BOOSTRIX IM ONE (19:10)
[2017-12-11] MEDS ORDERED: CATAPRES PO STA (19:22)
[2017-12-11] MEDS ORDERED: AUGMENTIN 875-125 MG TAB PO STA (19:23)
[2017-12-11] MEDS ORDERED: XANAX PO STA (19:39)
[2017-12-11] MEDS ORDERED: XANAX ONE (19:42)
[2017-12-11 20:32] VITALS: BP 112/52
== END 2017-12-11 20:48 | disposition home or self-care (01) ==
LOC: ED 17:31
DX: L03.113 Cellulitis of right upper limb (principal); S50.811A Abrasion of right forearm, initial encounter; H10.9 Unspecified conjunctivitis; F41.9 Anxiety disorder, unspecified; W54.8XXA Other contact with dog, initial encounter
CPT/HCPCS: 90471; 90715; 99283

== ENCOUNTER 2018-01-22 15:53 | Inpatient (IN) ==
[2018-01-22 15:56] VITALS: BMI 21.7
--- NOTE | 2018-01-22 16:55 | CT ---
EXAM: CT of the head without contrast History: Dizziness. Comparison: Brain MRI 11/10/2016 Technique: Multiplanar CT images through the head were obtained without the administration of IV con trast Findings: There is minimal debris within the right sphenoid sinus. No air-fluid levels seen within the sinuses. Mastoid air cells are clear in general. No acute calvarial abnormalities. Intracranially there are atherosclerotic vascular calcifications. Stable age appropriate atrophy. N o dominant mass or midline shift. No hydrocephalous. No acute intracranial hemorrhage or abnormal e xtraaxial fluid collections. No change in the mild periventricular and subcortical white matter hypo densities. Impression: 1. No acute intracranial process. 2. Stable chronic age-related changes. 3. Minimal right sphenoid sinus disease
--- NOTE | 2018-01-22 17:45 | ED.PDOC ---
General ED Provider: Dr. FRANCES ARAUJO Chief Complaint: Hypertension Stated Complaint: hypertension Time Seen by Physician: 16:00 Mode of Arrival: Wheelchair Information Source: Patient, Family Exam Limitations: No limitations Primary Care Provider: MONICA KUHN Referred to ED by: Other (no chest pain but ) Nursing and Triage Documentation Reviewed and Agree: Yes Reviewed sepsis parameters & appropriate labs ordered?: Yes (arrival systolic blood pressure 180's /90's) System Inflammatory Response Syndrome: Not Applicable Sepsis Protocol: For patient's 13 years and over: Temp is 96.8 and below OR 101 and greater Pulse >90 BPM Resp >20/minute Acutely Altered Mental Status Are patient's symptoms suggestive of a new infection, such as: -Pneumonia -Skin, Soft Tissue -Endocarditis -UTI -Bone, Joint Infection -Implantable Device -Acute Abdominal Infection -Wound Infection -Meningitis -Blood Stream Catheter Infection -Unknown System Inflammatory Response Syndrome: Not Applicable Cardiovascular Complaint Exam - Hypertension Complaint/Exam Onset/Duration: today Symptoms Are: Still present Timing: Intermittent Reported B/P Prior to Arrival: 190/90 Aggravating: Reports: None Alleviating: Reports: None Associated Signs and Symptoms: Reports: Headache, Weakness. Denies: Chest pain , Vision changes, Anxiety, Recent stress, Numbness, Tingling, Dizziness, Short of air, Swelling Related History: Reports: Similar episode Cardiac Risk Factors: Reports: Hypertension, Diabetes Recent Change in Medications: No A/V [place]: No Papilledema Present: No JVD Present: No Carotid Bruit Present: No Differential Diagnoses: Hypertension, Hypertensive Urgency, Renal Disease Quality Indicator For Non-Traumatic Chest Pain/Syncope: EKG Performed Review of Systems - Review Of Systems Constitutional: Reports: Malaise, Weakness Eyes: Reports: No symptoms Ears, Nose, Mouth, Throat: Reports: No symptoms Respiratory: Reports: Cough Cardiac: Reports: No symptoms GI: Reports: No symptoms : Reports: No symptoms Musculoskeletal: Reports: No symptoms Skin: Reports: No symptoms Neurological: Reports: No symptoms Endocrine: Reports: No symptoms Hematologic/Lymphatic: Reports: No symptoms All Other Systems: Reviewed and Negative Past Medical History - Past Medical History Previously Healthy: Yes Endocrine: Reports: DM 2, Dyslipidemia Cardiovascular: Reports: CAD, Hypertension Respiratory: Reports: COPD Hematological: Reports: None Gastrointestinal: Reports: None Genitourinary: Reports: None Neuro/Psych: Reports: None Musculoskeletal: Reports: Arthritis Cancer: Reports: None Last Menstrual Period: NONE - Surgical History General Surgical History: Reports: Hysterectomy, Appendectomy - Family History Family History: Reports: Unknown - Social History Smoking Status: Never smoker Hx Substance Use: No Alcohol Screening: None Physical Exam - Physical Exam Appearance: Well-appearing, No pain distress, Well-nourished Eyes: DONNA, EOMI, Conjunctiva clear ENT: Ears normal, Nose normal, Oropharynx normal Respiratory: Airway patent, Breath sounds clear, Breath sounds equal, Respirations nonlabored Cardiovascular: RRR, Pulses normal, No rub, No murmur GI/: Soft, Nontender, No masses, Bowel sounds normal, No Organomegaly Musculoskeletal: Normal strength, ROM intact, No edema, No calf tenderness Skin: Warm, Dry, Normal color Neurological: Sensation intact, Motor intact, Reflexes intact, Cranial nerves intact, Alert, Oriented Psychiatric: Affect appropriate, Mood appropriate Interpretation - Radiology Interpretation Radiology Interpretation By: Radiologist Radiology Results: No acute changes Exam Interpreted: CT Scan - Site Safety Representative Rate: Normal Rhythm: Sinus Ectopy: None - EKG Interpretation Rate: Normal Rhythm: Sinus Ectopy: None [place]: NL ST Segment: Normal Re-Evaluation - Re-Evaluation Time of Re-Evaluation: 17:46 Status: Improved Vital Signs Stable: Yes Pain Level: 0 Appearance: NAD Lungs: Clear Skin: Warm and Dry Neuro: Alert and Oriented X3 CV: RRR Physician Notification - Case Discussed Physician Notified: pmd Time of Notification: 17:46 Admit To: Inpatient Critical Care Note - Critical Care Note Total Time (mins): 0 Course - Course Hematology/Chemistry: 01/22/18 16:30 01/22/18 16:30 Orders, Labs, Meds: Lab Review 01/22/18 01/22/18 01/22/18 16:19 16:30 16:30 WBC 8.59 RBC 4.66 Hgb 11.9 L Hct 37.7 MCV 80.9 L MCH 25.5 L MCHC 31.6 L RDW Coeff of Ray 15.3 H Plt Count 182 Immature Gran % (Auto) 0.3 Neut % (Auto) 64.3 Lymph % (Auto) 28.8 [place] % (Auto) 5.5 Eos % (Auto) 0.8 Baso % (Auto) 0.3 Immature Gran # (Auto) 0.0 Neut # (Auto) 5.5 Lymph # (Auto) 2.5 [place] # (Auto) 0.5 Eos # (Auto) 0.1 Baso # (Auto) 0.0 Puncture Site Rb O2 Saturation 95.0 ABG pH 7.405 ABG pCO2 40.3 ABG pO2 73.0 L ABG HCO3 25.2 ABG Total CO2 26 ABG Base Excess 1 FiO2 % 21.0 Sodium 140 Potassium 5.3 H Chloride 104 Carbon Dioxide 23 Anion Gap 18.3 BUN 50 H Creatinine 1.86 H Estimated GFR (MDRD) 26.00 BUN/Creatinine Ratio 26.88 Glucose 107 Calcium 10.2 Total Bilirubin 0.6 AST 12 L ALT 7 L Alkaline Phosphatase 122 Total Creatine Kinase 40 Troponin I 0.0500 B-Natriuretic Peptide Total Protein 7.3 Albumin 3.3 L Globulin 4.0 Albumin/Globulin Ratio 0.83 01/22/18 16:30 WBC RBC Hgb Hct MCV MCH MCHC RDW Coeff of Ray Plt Count Immature Gran % (Auto) Neut % (Auto) Lymph % (Auto) [place] % (Auto) Eos % (Auto) Baso % (Auto) Immature Gran # (Auto) Neut # (Auto) Lymph # (Auto) [place] # (Auto) Eos # (Auto) Baso # (Auto) Puncture Site O2 Saturation ABG pH ABG pCO2 ABG pO2 ABG HCO3 ABG Total CO2 ABG Base Excess FiO2 % Sodium Potassium Chloride Carbon Dioxide Anion Gap BUN Creatinine Estimated GFR (MDRD) BUN/Creatinine Ratio Glucose Calcium Total Bilirubin AST ALT Alkaline Phosphatase Total Creatine Kinase Troponin I B-Natriuretic Peptide 116 H Total Protein Albumin Globulin Albumin/Globulin Ratio Orders Category Date Time Status ABG DRAW REQUEST Stat CARDIO 01/22/18 16:19 Completed EKG-(ED ONLY) Stat CARDIO 01/22/18 16:19 Completed ED IV/MEDIPORT/POWERPORT .ONCE EMERGENCY 01/22/18 16:18 Active ABG Stat LAB 01/22/18 16:19 Completed B-TYPE NATRIURETIC PEPTIDE Stat LAB 01/22/18 16:30 Completed CBC W/ AUTO DIFF Stat LAB 01/22/18 16:30 Completed COMPREHENSIVE METABOLIC PANEL Stat LAB 01/22/18 16:30 Completed CREATINE KINASE Stat LAB 01/22/18 16:30 Completed TROPONIN I Stat LAB 01/22/18 16:30 Completed 0.9 % Sodium Chloride [Saline Flush] MEDS 01/22/18 16:18 Active 1 syr IVF PRN PRN CHEST, 1V AP ONLY Stat RADS 01/22/18 16:[address] HEAD W/O CONTRAST Stat RADS 01/22/18 16:19 Completed Medications Generic Name Dose Route Start Last Admin Trade Name Freq PRN Reason Stop Dose Admin Sodium Chloride 1 syr 01/22/18 16:18 Saline Flush IVF PRN PRN To flush IV Vital Signs: Temp Pulse Resp BP Pulse Ox 01/22/18 15:53 98.3 F 77 18 178/80 H 94 L INEZ Risk Score INEZ Risk Score: Risk Score Odds of by 30D 0 0.1 (0.1-0.2) 1 0.3 (0.2-0.3) 2 0.4 (0.3-0.5) 3 0.7 (0.6-0.9) 4 1.2 (1.0-1.5) 5 2.2 (1.9-2.6) 6 3.0 (2.5-3.6) 7 4.8 (3.8-6.1) Departure - Departure Time of Disposition: 18:00 Disposition: ADMITTED INPATIENT Discharge Problem: Uncontrolled hypertension Instructions: Chronic Hypertension (ED) Condition: Good Pt referred to PMD for follow-up: Yes IPMP verified?: No Allergies/Adverse Reactions: Allergies No Known Allergies Allergy (Verified 01/22/18 15:57) Home Medications: Ambulatory Orders Metformin HCl [Glucophage] 1,000 mg PO BIDWM 04/23/13 Simvastatin [Zocor] 40 mg PO BEDTIME 04/23/13 Losartan Potassium [Cozaar] 50 mg PO BEDTIME 04/13/14 Aspirin [Aspirin EC] 2 tab PO BEDTIME 07/03/16 Donepezil HCl [Aricept] 5 mg PO BEDTIME 07/03/16 Memantine HCl [Namenda] 10 mg PO BEDTIME 07/03/16 Diltiazem HCl [Cardizem] 60 mg PO Q12HR #30 tablet 07/06/16 Furosemide [Lasix] 40 mg PO BID PRN 10/24/16 Naproxen Sodium [Aleve] 2 tab PO DAILY PRN 10/24/16 Nitroglycerin [Nitrostat] 0.4 mg SL DIRECTED PRN 10/24/16 Potassium Chloride [Micro-K Cap] 10 meq PO DAILY #30 capsule.er 10/27/16 Carvedilol 25 mg PO BID 01/22/18 Disposition Discussed With: Patient, Family
[2018-01-22] MEDS ORDERED: LASIX TAB PO PRN (17:48)
[2018-01-22] MEDS ORDERED: NITROSTAT SL PRN (17:48)
[2018-01-22] MEDS ORDERED: NON-FORMULARY MEDICATION (Carvedilol [Carvedilol] 25 MG) PO SCH (21:00)
[2018-01-22] MEDS ORDERED: NON-FORMULARY MEDICATION (Losartan Potassium 50 MG) PO SCH (21:00)
[2018-01-22] MEDS ORDERED: COREG ONE (21:17)
[2018-01-22] MEDS ORDERED: CARDIZEM ONE (21:17)
[2018-01-22] MEDS ORDERED: COZAAR ONE (21:17)
[2018-01-22] MEDS: CARDIZEM PO SCH (21:29)
[2018-01-22] MEDS: ASPIRIN EC PO SCH (21:29)
[2018-01-22] MEDS: SODIUM CHLORIDE 1,000 ML IV SCH (21:30)
--- NOTE | 2018-01-23 07:10 | DI ---
EXAM: Single AP view of the chest HISTORY: Cough. COMPARISON: Chest x-ray 07/11/2017 and multiple priors including CT chest 09/12/2016 FINDINGS: Cardiomediastinal silhouette is unremarkable. There is no pneumothorax or effusion. Endov ascular stent is in place. There are calcified granulomas noted in the lungs bilaterally. Lungs are hyperinflated. The osseous structures are unchanged. IMPRESSION: No acute cardiopulmonary process or consolidation. Mild hyperinflation may represent em physema.
[2018-01-23] MEDS: COREG PO SCH ×2 (08:26→16:52)
[2018-01-23] MEDS: SODIUM CHLORIDE 1,000 ML IV SCH (08:26)
[2018-01-23] MEDS: TYLENOL PO SCH ×2 (08:27→21:30)
[2018-01-23] MEDS: LASIX TAB PO SCH (08:27)
[2018-01-23] MEDS: CARDIZEM PO SCH ×2 (08:27→21:30)
[2018-01-23] MEDS: MICRO-K CAP PO SCH (08:28)
--- NOTE | 2018-01-23 09:28 | PCM.PROG ---
Attending Provider: ATTENDING PROVIDER: Dr. MONICA KUHN DATE OF SERVICE: 01/23/18 SUBJECTIVE: This 87 year old WHITE/ F was hospitalized 01/22/18 with uncontrolled hypertension. She also has renal azotemia and has been strongly advised not to take nonsteroidal antiinflammatories. Blood pressure is controlled. REVIEW OF SYSTEMS: CONSTITUTIONAL: No night sweats. No fatigue, malaise, lethargy. No fever or chills. HEENT: Eyes: No visual changes. No eye pain. No eye discharge. ENT: No runny nose. No epistaxis. No sinus pain. No odynophagia. No congestion. RESPIRATORY: No cough, no congestion. No hemoptysis. No shortness of breath. CARDIOVASCULAR: No angina symptoms. No CHF symptoms. No atypical chest pain for CAD. No palpitations. No orthopnea.. GASTROINTESTINAL: No abdominal pain. No nausea or vomiting. No diarrhea or constipation. No hematemesis. No hematochezia. GENITOURINARY: No urgency. No frequency. No dysuria. No hematuria. No obstructive symptoms. No discharge. No pain. No significant abnormal bleeding. MUSCULOSKELETAL: No musculoskeletal pain; no joint swelling. NEUROLOGICAL: Awake, alert, oriented to time, place and person. No headache. No neck pain. No syncope. No seizures. No dizziness. PSYCHIATRIC: Not anxious. No depression. No suicidal thoughts. No homicidal thoughts. SKIN: No rash. No lesions. No wounds. ENDOCRINE: No unexplained weight loss. No weight gain. HEMATOLOGIC/LYMPHATIC: No anemia. No purpura. No petechiae. No prolonged or excessive bleeding. No palpable lymph nodes. PHYSICAL EXAMINATION: GENERAL: The patient is awake, alert and oriented, sitting in chair in no distress. VITAL SIGNS: Temperature 98.1 F, Pulse 63, Respiratory Rate 18, BP 142/62, Pulse Ox 97% HEENT: Head normocephalic, atraumatic. Eyes: Extraocular muscles are intact. Pupils are equal, round and reactive to light and accommodation. Ears: No lesions. Nose appeared normal. Throat: No exudate or erythema. NECK: Supple. No JVD, no carotid bruit. No lymphadenopathy or thyromegaly. LUNGS: Clear to auscultation. Percussion note normal. Chest symmetrical. HEART: S1, S2, no S3. No murmurs. No cyanosis or clubbing. No ascites. Pulses: Dorsalis pedis and posterior tibial pulses +1 to +2 both sides. ABDOMEN: Soft. Non-tender. Bowel sounds active. No CVA tenderness. No mass felt. EXTREMITIES: Trace edema. Full range of motion of all extremities, equal. NEUROLOGIC: No focal deficit. Cranial nerves II through XII are grossly intact. No headache, no double vision or headache. SKIN: Warm and dry. Intact. Turgor-normal. LYMPHATIC: No palpable lymph nodes/no lymphedema. MUSCULOSKELETAL: Normal joints with no swelling. Muscle tone is normal. LAB REVIEW: 01/22/18 16:30 01/22/18 16:30 01/22/18 23:10: Total Creatine Kinase 37, Troponin I 0.0480 01/22/18 16:30: B-Natriuretic Peptide 116 H 01/22/18 16:30: Sodium 140, Potassium 5.3 H, Chloride 104, Carbon Dioxide 23, Anion Gap 18.3, BUN 50 H, Creatinine 1.86 H, Estimated GFR (MDRD) 26.00, BUN/ Creatinine Ratio 26.88, Glucose 107, Calcium 10.2, Total Bilirubin 0.6, AST 12 L , ALT 7 L, Alkaline Phosphatase 122, Total Creatine Kinase 40, Troponin I 0.0500 , Total Protein 7.3, Albumin 3.3 L, Globulin 4.0, Albumin/Globulin Ratio 0.83 01/22/18 16:30: WBC 8.59, RBC 4.66, Hgb 11.9 L, Hct 37.7, MCV 80.9 L, MCH 25.5 L , MCHC 31.6 L, RDW Coeff of Ray 15.3 H, Plt Count 182, Immature Gran % (Auto) 0.3, Neut % (Auto) 64.3, Lymph % (Auto) 28.8, [place] % (Auto) 5.5, Eos % (Auto) 0.8, Baso % (Auto) 0.3, Immature Gran # (Auto) 0.0, Neut # (Auto) 5.5, Lymph # ( Auto) 2.5, [place] # (Auto) 0.5, Eos # (Auto) 0.1, Baso # (Auto) 0.0 01/22/18 16:19: Puncture Site Rb, O2 Saturation 95.0, ABG pH 7.405, ABG pCO2 40.3, ABG pO2 73.0 L, ABG HCO3 25.2, ABG Total CO2 26, ABG Base Excess 1, FiO2 % 21.0 ASSESSMENT: 1. Renal azotemia with slow IV hydration. 2. Hypertension with blood pressure being under control now. 3. Borderline hyperkalemia PLAN: 1. Decrease Lasix to 40 mg one a day 2. Elevate legs 3. Daily CBC, CMP 4. Hold Metformin 5. Strongly advised not to take Aleve 6. Tylenol two tablets b.i.d. Plan and coordination of the patient's care discussed in the presence of Director Outpatient Services and nurse. EDUCATION: The patient is strongly advised to discontinue nonsteroidal anti inflammatory and should not be listed on home meds under my name CONDITION: Stable SCRIBED BY: SADIE JOHNSON [employer] Fruit [employer] scribed while in presence of service performed by Dr. MOINCA KUHN on 01/23/18 ([id number])
[2018-01-23] MEDS: HUMULIN R SUBCUT PRN (11:08)
--- NOTE | 2018-01-23 15:08 | RS.PTINEVL ---
Subjective - Patient information Date of Evaluation: 01/23/18 Date of Arrival on Unit: 01/22/18 Admitted From:: Home Diagnosis: Uncontrolled HTN Usual Living Arrangement: Alone Living Arrangement Comments: brother assists occasionally. pt states he makes her chicken salad and she eats once sometimes twice a day. Home Environment: House, Stairs (few), Rail Medical History: Hypertension, COPD, Diabetes, Arthritis Medical History Comments:: CAD LATEX ALLERGY?: No Surgical History: Hysterectomy Surgical History Comments:: appey Medications: see chart Subjective Information/ Patient Comments:: pt states that "my mind doesn't work so good" - Level of function Prior to this admission, the patient could do the following:: Independent Selfcare, Independent Ambulation Abilities prior to this admission: pt states that she does a sponge bath at home. Walks with rollator. Current Level of Function: Partially Dependent Current Equipment Used at Home: rollator rolling Walker, Glucometer, Oxygen, nebulizer Interventions - Objective Patient Orientation: Person, Place Current Interventions: IV's, Telemetry Observation: pt with min non pitting edema BLE Range of Motion - ROM Right Upper Extremity AROM: WFL's Left Upper Extremity AROM: WFL's Right Lower Extremity AROM: WFL's Left Lower Extremity AROM: WFL's Muscle Strength - Muscle Strength Right Upper Extremity Strength: Mild Weakness (grossly 4-/5) Left Upper Extremity Strength: Mild Weakness (grossly 4-/5) Right Lower Extremity Strength: Mild Weakness (hip flex 4-/5, knee flex/ext 4/5 , ankle dF/PF 4/5) Left Lower Extremity Strength: Mild Weakness (hip flex 3+/5, knee flex/ext 4-/5 , ankle DF/PF 4/5) Sensation - Sensation Right Upper Extremity Sensation: Intact/Normal Left Upper Extremity Sensation: Intact/Normal Right Lower Extremity Sensation: Impaired Left Lower Extremity Sensation: Impaired Comments: Reports n/t B toes Palpation Palpation Findings: None/Normal Balance - Sitting Balance and Reactions Static Sitting Balance: Good Dynamic Sitting Balance: Fair Sitting Equilibrium Reactions: Delayed Left, Delayed Right Sitting Protective Reactions: Delayed Left, Delayed Right - Standing Balance and Reactions Static Standing Balance: Poor Dynamic Standing Balance: Poor Standing Equilibrium Reactions: Delayed Left, Delayed Right Standing Protective Reactions: Delayed Left, Delayed Right Functional Mobility - Transfers Sit to Stand: CGA Stand to Sit: CGA - Safety Awareness Safety Awareness: Fair BANDAR INDEX SCORE: n/a Ambulation - Ambulation Assistive Device Used: Rolling Walker Orthotic/Prosthetic Device: No Distance: 140ft Assistance needed with Ambulation: CGA, 1 person assist Gait Deviations: Forward posture, Short stride, Deviates from path Ambulation Comments: pt amb with decreased step length, flexed posture, with occasional scissoring Factors Affecting Ambulation: Decreased Balance, Weakness, Decreased Safety, Cognitive Status, Limited Endurance, Limited Sensation Treatment time - Time with patient Total treatment time: 25 Patient Education - Education Patient Education: Activity Modification, Education of Plan of Care Teaching Recipient: Patient Teaching Methods: Discussion Comments: discussion with patient regarding POC as well as safety with amb Assessment - Assessment Problem List:: Decreased level of function, Requires training/education, Decreased safety/Risk of falls, Weakness, Cognitive status limits abilities Rehab Potential: Good Further Therapy Indicated?: Yes Evaluation Complexity: HISTORY: Medium (age, htn, dm, cad, copd), EXAM OF BODY SYSTEMS: Medium (strength, balance, gait, posture), CLINICAL PRESENTATION: Medium (evolving), CLINICAL DECISION MAKING: Medium Short Term Goals GOAL #1: pt demonstrate independence with rolling and scooting up in bed. Goal to be met by: 01/25/18 GOAL #2: pt transfers sup to/from sit to/from stand SBA Goal to be met by: 01/25/18 GOAL #3: pt amb with rwx 150ft with CGA to SBA with no LOB Goal to be met by: 01/25/18 GOAL #4: pt with improved strength BLE 4 to 4+/5 Goal to be met by: 01/25/18 [facility] Goals GOAL #1: pt transfer sup to/from sit to/from stand independently. Goal to be met by: 01/28/18 GOAL #2: pt amb functional household distances with SBA with rwx with no LOB Goal to be met by: 01/28/18 GOAL #3: pt improve dyn stand balance to be able to amb with no LOB Goal to be met by: 01/28/18 Plan Plan of Care: Therapeutic EX, Therapeutic Activity Other:: gait training Frequency of Treatment: 1-2 X day, as tolerated Duration of Treatment: 6 days Anticipated Discharge Destination: Home Treatment Diagnosis (ICD 10 Codes): R26.2 difficulty walking, R26.81 Balance impaired Has the Physician been added for Co-signature?: Yes
--- NOTE | 2018-01-23 15:10 | RS.OTINEVL ---
Subjective - Patient information Date of Evaluation: 01/23/18 Date of Arrival on Unit: 01/22/18 Admitted From:: Home Usual Living Arrangement: Alone Living Arrangement Comments: brother assists occasionally. pt states he makes her chicken salad and she eats once sometimes twice a day. Home Environment: House, Stairs (few), Rail Medical History: Hypertension, COPD, Diabetes, Arthritis Medical History Comments:: CAD LATEX ALLERGY?: No Surgical History: Hysterectomy Surgical History Comments:: appey Medications: see chart Subjective Information/ Patient Comments:: "I am good." - Level of function Prior to this admission, the patient could do the following:: Independent Selfcare, Independent Ambulation Current Level of Function: Partially Dependent Current Equipment Used at Home: rollator rolling Walker, Glucometer, Oxygen, nebulizer Pain Assessment - Pain Pain Score: 0 Interventions - Objective Patient Orientation: Person, Place Current Interventions: IV's, Telemetry Observation: Pt walks to the left of her rolling walker. Pt leans to the left a little as well. Interventions - ROM Right Upper Extremity AROM: WFL's Left Upper Extremity AROM: WFL's - Strength Right Upper Extremity Strength: Mild Weakness Left Upper Extremity Strength: Mild Weakness - Sensation Right Upper Extremity Sensation: Intact/Normal Left Upper Extremity Sensation: Intact/Normal Balance - Sitting Balance Static Sitting Balance: Fair Dynamic Sitting Balance: Fair - Standing Balance Static Standing Balance: Fair Dynamic Standing Balance: Poor ADL Skills - Self Feeding Self Feeding: Independent - Grooming Grooming: Min Assist - Bathing Bathing UE: CGA Bathing LE: CGA - Dressing Dressing UE: CGA Dressing LE: Min Assist - Toilet Management Toileting Management: CGA Functional Mobility - Bed Mobility Rolling R/L: Supervision Scooting: Supervision Supine to Sit: Supervision Sit to Supine: Supervision - Transfers Sit to Stand: CGA Stand to Sit: CGA Stand Pivot Transfers: CGA BANDAR INDEX SCORE: . Additional Treatment Performed - Additional units charged ADL: 15 - Time with patient Total treatment time: 27 Activities Patient Interests:: Watching Television, Visiting/Socializing Patient Education Patient Education: Home Exercise Program, Home Safety, Education of Plan of Care Teaching Recipient: Patient Teaching Methods: Discussion Assessment Problem List:: Decreased level of function, Decreased safety/Risk of falls, Weakness Rehab Potential: Good Further Therapy Indicated?: Yes Evaluation Complexity: HISTORY: Medium, EXAM OF BODY SYSTEMS: Medium, CLINICAL DECISION MAKING: Medium Short Term Goals - Goals GOAL 1: Pt to tolerate dyn. standing balance to F-/G+ Goal to be met by: 01/29/18 GOAL 2: Pt to increase activity tolerance to 15 minutes with rests PRN. Goal to be met by: 01/29/18 GOAL 3: To increase sink level ADLS to Supervision to return to PLOF. Goal to be met by: 01/29/18 Detention Goals GOAL 1: Pt to tolerate dyn. standing balance to Good. Goal to be met by: 02/01/18 GOAL 2: Pt to increase activity tolerance to 20 minutes with rests PRN. Goal to be met by: 02/01/18 GOAL 3: To increase sink level ADLS to Mod-I to return to PLOF. Goal to be met by: 02/01/18 Plan Treatment Diagnosis (ICD 10 Codes): M62.81, R27.9, Has the Physician been added for Co-signature?: Yes
[2018-01-23] MEDS ORDERED: COZAAR PO SCH (21:00)
[2018-01-23] MEDS: ASPIRIN EC PO SCH (21:30)
[2018-01-24] MEDS: SODIUM CHLORIDE 1,000 ML IV SCH (01:47)
[2018-01-24] MEDS: LASIX TAB PO SCH (05:42)
--- NOTE | 2018-01-24 09:08 | PCM.PROG ---
Attending Provider: ATTENDING PROVIDER: Dr. MONICA KUHN This patient is seen with Dee Miller, Nurse Practitioner. DATE OF SERVICE: 01/24/18 SUBJECTIVE: This 87 year old WHITE/ F was hospitalized 01/22/18. The patient is sitting on the side of the bed, alert. She is up to the bathroom. Blood pressure is still elevated. She states she is feeling well. REVIEW OF SYSTEMS: CONSTITUTIONAL: No night sweats. No fatigue, malaise, lethargy. No fever or chills. HEENT: Eyes: No visual changes. No eye pain. No eye discharge. ENT: No runny nose. No epistaxis. No sinus pain. No odynophagia. No congestion. RESPIRATORY: No cough, no congestion. No hemoptysis. No shortness of breath. CARDIOVASCULAR: No angina symptoms. No CHF symptoms. No atypical chest pain for CAD. No palpitations. No orthopnea.. GASTROINTESTINAL: No abdominal pain. No nausea or vomiting. No diarrhea or constipation. No hematemesis. No hematochezia. GENITOURINARY: No urgency. No frequency. No dysuria. No hematuria. No obstructive symptoms. No discharge. No pain. No significant abnormal bleeding. MUSCULOSKELETAL: No musculoskeletal pain; no joint swelling. NEUROLOGICAL: Awake, alert, oriented to time, place and person. No headache. No neck pain. No syncope. No seizures. No dizziness. PSYCHIATRIC: Not anxious. No depression. No suicidal thoughts. No homicidal thoughts. SKIN: No rash. No lesions. No wounds. ENDOCRINE: No unexplained weight loss. No weight gain. HEMATOLOGIC/LYMPHATIC: No anemia. No purpura. No petechiae. No prolonged or excessive bleeding. No palpable lymph nodes. PHYSICAL EXAMINATION: GENERAL: The patient is awake, alert and oriented, sitting in bed in no distress. VITAL SIGNS: Temperature 97.7 F, Pulse 77, Respiratory Rate 16, BP 180/84, Pulse Ox 95% HEENT: Head normocephalic, atraumatic. Eyes: Extraocular muscles are intact. Pupils are equal, round and reactive to light and accommodation. Ears: No lesions. Nose appeared normal. Throat: No exudate or erythema. NECK: Supple. No JVD, no carotid bruit. No lymphadenopathy or thyromegaly. LUNGS: Diminished breath sounds. Clear to auscultation. Percussion note normal. Chest symmetrical. HEART: S1, S2, no S3. No murmurs. No cyanosis or clubbing. No ascites. Pulses: Dorsalis pedis and posterior tibial pulses +1 to +2 both sides. ABDOMEN: Soft. Non-tender. Bowel sounds active. No CVA tenderness. No mass felt. EXTREMITIES: No edema. Full range of motion of all extremities, equal. NEUROLOGIC: No focal deficit. Cranial nerves II through XII are grossly intact. No headache, no double vision or headache. SKIN: Not dry. Intact. Turgor-normal. LYMPHATIC: No palpable lymph nodes/no lymphedema. MUSCULOSKELETAL: Normal joints with no swelling. Muscle tone is normal. LAB REVIEW: 01/24/18 04:30 01/24/18 04:30 01/24/18 04:30: Sodium 139, Potassium 4.4, Chloride 105, Carbon Dioxide 22 L, Anion Gap 16.4, BUN 37 H, Creatinine 1.08, Estimated GFR (MDRD) 48.00, BUN/ Creatinine Ratio 34.25, Glucose 116 H, Calcium 9.5, Total Bilirubin 0.5, AST 11 L, ALT 7 L, Alkaline Phosphatase 98, Total Protein 6.1, Albumin 2.9 L, Globulin 3.2, Albumin/Globulin Ratio 0.91 01/24/18 04:30: WBC 9.34, RBC 3.92 L, Hgb 10.0 L, Hct 31.2 L, MCV 79.6 L, MCH 25.5 L, MCHC 32.1, RDW Coeff of Ray 14.9 H, Plt Count 154, Immature Gran % (Auto ) 0.4, Neut % (Auto) 61.8, Lymph % (Auto) 27.8, [place] % (Auto) 8.5, Eos % (Auto) 1.2, Baso % (Auto) 0.3, Immature Gran # (Auto) 0.0, Neut # (Auto) 5.8, Lymph # ( Auto) 2.6, [place] # (Auto) 0.8, Eos # (Auto) 0.1, Baso # (Auto) 0.0 01/23/18 07:45: Sodium 138, Potassium 4.7, Chloride 104, Carbon Dioxide 22 L, Anion Gap 16.7, BUN 47 H, Creatinine 1.39 H, Estimated GFR (MDRD) 36.00, BUN/ Creatinine Ratio 33.81, Glucose 103, Calcium 9.8, Total Bilirubin 0.9, AST 12 L , ALT 7 L, Alkaline Phosphatase 118, Total Creatine Kinase 35, Troponin I 0.0510 , Total Protein 7.0, Albumin 3.2 L, Globulin 3.8, Albumin/Globulin Ratio 0.84 01/23/18 07:45: WBC 9.39, RBC 4.42, Hgb 11.4 L, Hct 35.6 L, MCV 80.5 L, MCH 25.8 L, MCHC 32.0, RDW Coeff of Ray 15.0 H, Plt Count 171, Immature Gran % (Auto ) 0.3, Neut % (Auto) 62.1, Lymph % (Auto) 29.0, [place] % (Auto) 6.6, Eos % (Auto) 1.6, Baso % (Auto) 0.4, Immature Gran # (Auto) 0.0, Neut # (Auto) 5.8, Lymph # ( Auto) 2.7, [place] # (Auto) 0.6, Eos # (Auto) 0.2, Baso # (Auto) 0.0 ASSESSMENT: 1. Renal azotemia with slow IV hydration. 2. Hypertension with blood pressure being under control now. 3. Borderline hyperkalemia PLAN: 1. Cozaar 50 mg twice a day 2. Cardizem 90 mg q.12hr 3. Lasix 20 mg 4. Stop IV fluids Plan and coordination of the patient's care discussed in the presence of Multimedia Engineer and nurse. CONDITION: Stable SCRIBED BY: Leonard GUZMAN scribed while in presence of service performed by Dr. Kuhn/Dee Mliler APRN on 01/24/18 ([id number])
[2018-01-24] MEDS: COREG PO SCH ×2 (09:24→16:47)
[2018-01-24] MEDS: MICRO-K CAP PO SCH (09:25)
[2018-01-24] MEDS: CARDIZEM PO SCH ×4 (09:25→20:28)
[2018-01-24] MEDS: COZAAR PO SCH ×2 (09:26→20:29)
[2018-01-24] MEDS: TYLENOL PO SCH ×2 (09:26→20:28)
[2018-01-24] MEDS: HUMULIN R SUBCUT PRN ×2 (11:39→21:25)
[2018-01-24] MEDS: ASPIRIN EC PO SCH (20:28)
[2018-01-25] MEDS ORDERED: LASIX TAB PO SCH (06:30)
[2018-01-25] MEDS: TYLENOL PO SCH (09:08)
[2018-01-25] MEDS: MICRO-K CAP PO SCH (09:08)
[2018-01-25] MEDS: COZAAR PO SCH (09:09)
[2018-01-25] MEDS: CARDIZEM PO SCH ×2 (09:09)
[2018-01-25] MEDS: COREG PO SCH (09:09)
--- NOTE | 2018-01-25 09:15 | PCM.PROG ---
Attending Provider: ATTENDING PROVIDER: Dr. MONICA KUHN This patient is seen with Dee Miller, Nurse Practitioner. DATE OF SERVICE: 01/25/18 SUBJECTIVE: This 87 year old WHITE/ F was hospitalized 01/22/18. The patient is sitting in chair alert. She states she has been feeling well, no dizziness or light headedness. With medication changes, the patient reports feeling well. She would like to go home. Blood pressure is significantly improved. REVIEW OF SYSTEMS: CONSTITUTIONAL: No night sweats. No fatigue, malaise, lethargy. No fever or chills. HEENT: Eyes: No visual changes. No eye pain. No eye discharge. ENT: No runny nose. No epistaxis. No sinus pain. No odynophagia. No congestion. RESPIRATORY: No cough, no congestion. No hemoptysis. No shortness of breath. CARDIOVASCULAR: No angina symptoms. No CHF symptoms. No atypical chest pain for CAD. No palpitations. No orthopnea.. GASTROINTESTINAL: No abdominal pain. No nausea or vomiting. No diarrhea or constipation. No hematemesis. No hematochezia. GENITOURINARY: No urgency. No frequency. No dysuria. No hematuria. No obstructive symptoms. No discharge. No pain. No significant abnormal bleeding. MUSCULOSKELETAL: No musculoskeletal pain; no joint swelling. NEUROLOGICAL: Awake, alert, oriented to time, place and person. No headache. No neck pain. No syncope. No seizures. No dizziness. PSYCHIATRIC: Not anxious. No depression. No suicidal thoughts. No homicidal thoughts. SKIN: No rash. No lesions. No wounds. ENDOCRINE: No unexplained weight loss. No weight gain. HEMATOLOGIC/LYMPHATIC: No anemia. No purpura. No petechiae. No prolonged or excessive bleeding. No palpable lymph nodes. PHYSICAL EXAMINATION: GENERAL: The patient is awake, alert and oriented, sitting in chair in no distress. VITAL SIGNS: Temperature 98.1 F, Pulse 66, Respiratory Rate 20, BP 146/71, Pulse Ox 96% HEENT: Head normocephalic, atraumatic. Eyes: Extraocular muscles are intact. Pupils are equal, round and reactive to light and accommodation. Ears: No lesions. Nose appeared normal. Throat: No exudate or erythema. NECK: Supple. No JVD, no carotid bruit. No lymphadenopathy or thyromegaly. LUNGS: Diminished breath sounds. Clear to auscultation. Percussion note normal. Chest symmetrical. HEART: S1, S2, no S3. No murmurs. No cyanosis or clubbing. No ascites. Pulses: Dorsalis pedis and posterior tibial pulses +1 to +2 both sides. ABDOMEN: Soft. Non-tender. Bowel sounds active. No CVA tenderness. No mass felt. EXTREMITIES: No edema. Full range of motion of all extremities, equal. NEUROLOGIC: No focal deficit. Cranial nerves II through XII are grossly intact. No headache, no double vision or headache. SKIN: Not dry. Intact. Turgor-normal. LYMPHATIC: No palpable lymph nodes/no lymphedema. MUSCULOSKELETAL: Normal joints with no swelling. Muscle tone is normal. LAB REVIEW: 01/25/18 05:00 01/25/18 05:00 01/25/18 05:00: Sodium 139, Potassium 4.3, Chloride 102, Carbon Dioxide 25, Anion Gap 16.3, BUN 34 H, Creatinine 1.20, Estimated GFR (MDRD) 43.00, BUN/ Creatinine Ratio 28.33, Glucose 121 H, Calcium 10.3 H, Total Bilirubin 0.5, AST 13 L, ALT 8 L, Alkaline Phosphatase 116, Total Protein 7.5, Albumin 3.4, Globulin 4.1, Albumin/Globulin Ratio 0.83 01/25/18 05:00: WBC 13.81 H, RBC 4.65, Hgb 11.9 L, Hct 37.3 D, MCV 80.2 L, MCH 25.6 L, MCHC 31.9, RDW Coeff of Ray 15.1 H, Plt Count 190, Immature Gran % (Auto ) 0.4, Neut % (Auto) 65.1, Lymph % (Auto) 26.1, [place] % (Auto) 7.1, Eos % (Auto) 0.9, Baso % (Auto) 0.4, Immature Gran # (Auto) 0.1, Neut # (Auto) 9.0 H, Lymph # (Auto) 3.6 H, [place] # (Auto) 1.0, Eos # (Auto) 0.1, Baso # (Auto) 0.1 ASSESSMENT: 1. Renal azotemia with slow IV hydration, resolved 2. Hypertension with blood pressure being under control now. 3. Borderline hyperkalemia, resolved PLAN: 1. D/C home. 2. Followup with Dr. Kuhn's office next week. 3. Continue medication changes as ordered yesterday. 4. Followup with Dr. Kuhn's office next week. Plan and coordination of the patient's care discussed in the presence of Prevention Rn and nurse. CONDITION: Stable SCRIBED BY: SADIE JOHNSON Associate Professor Of Art scribed while in presence of service performed by Dr. Kuhn/Dee Miller APRN on 01/25/18 ([id number])
[2018-01-25 09:27] VITALS: BP 169/75; TEMP 98
--- NOTE | 2018-01-25 11:53 | CM.DICTOOL ---
ADMISSION: 01/22/18 18:20 DISCHARGE: 01/25/18 DATE OF SERVICE: 01/25/18 FINAL DIAGNOSIS UNCONTROLLED HTN RENAL AZOTEMIA HYPERKALEMIA, RESOLVED WEAKNESS CAD DYSLIPIDEMIA COPD DIABETES, TYPE 2 ARTHRITIS CONSTIPATION STRESS INCONTINENCE DEMENTIA DEPRESSION APPENDECTOMY PARTIAL HYSTERECTOMY CATARACT EXTRACTION, 2017 LAST VITALS Temp Pulse Resp BP Pulse Ox 98 F 68 20 169/75 H 98 01/25/18 09:26 01/25/18 09:26 01/25/18 09:26 01/25/18 09:26 01/25/18 09:26 TAKE THESE HOME MEDICATIONS Aspirin (Aspirin Ec) 162 mg PO BEDTIME [facility] Last Admin: 01/24/18 20:28 Dose: 162 mg Carvedilol (Coreg) 25 mg PO BIDWM [facility] Last Admin: 01/25/18 09:09 Dose: 25 mg Diltiazem HCl (Cardizem) 90 mg PO Q12HR [facility] Last Admin: 01/25/18 09:09 Dose: 90 mg Donepezil HCl (Aricept) 5 mg PO BEDTIME Furosemide (Lasix Tab) 20 mg PO QDAC [facility] Last Admin: 01/25/18 05:35 Dose: 20 mg Losartan Potassium (Cozaar) 50 mg PO BID [facility] Last Admin: 01/25/18 09:09 Dose: 50 mg Memantine HCl (Namenda) 10 mg PO BIDTIME Metformin HCl (Glucophage) 1,000 mg PO BIDWM Naproxen Sodium (Aleve) 2 tabs PO DAILY PRN Potassium Chloride (Micro-K Cap) 10 meq PO DAILY [facility] Last Admin: 01/25/18 09:08 Dose: 10 meq Simvastatin (Zocor) 40 mg PO BEDTIME MEDICATION CHANGES DURING THIS STAY Increased Cardizem from 60 mg to 90 mg PO BID Increased Cozaar from 50 mg PO DAILY to 50 mg PO BID Increased Lasix from 40 mg PO BID PRN to 20 mg PO DAILY ALLERGIES No Known Allergies Allergy (Verified 01/22/18 15:57) NEW PRESCRIPTIONS: PLEASE NOTE THE FOLLOWING CHANGES IN YOUR HOME MEDICATIONS: INCREASE LOSARTAN POTASSIUM (COZAAR) TO 50 MG BY MOUTH TWICE DAILY INCRESE DILTIAZEM HCl (CARDIZEM) TO 90 MG BY MOUTH TWICE DAILY INCREASE FUROSEMIDE (LASIX) 20 MG BY MOUTH DAILY BEFORE BREAKFAST ON AN EMPTY STOMACH PRESCRIPTIONS: COZAAR 50 MG, TAKE ONE TABLET BY MOUTH TWICE DAILY LASIX 20 MG, TAKE ONE TABLET BEFORE BREAKFAST ON AN EMPTY STOMACH DAILY CARDIZEM 30 MG, TAKE ONE TABLET BY MOUTH TWICE DAILY WITH YOUR USUAL CARDIZEM 60 MG TO EQUAL A TOTAL OF 90 MG BY MOUTH TWICE DAILY SMOKING: FORMER SMOKER NONE NOW DISEASE SPECIFIC EDUCATION: HYPERTENSION HOME MEDICATIONS AND CHANGES NEW PRESCRIPTIONS FOLLOW UP LAB REVIEW: 01/25/18 05:00 01/25/18 05:00 01/25/18 05:00: Sodium 139, Potassium 4.3, Chloride 102, Carbon Dioxide 25, Anion Gap 16.3, BUN 34 H, Creatinine 1.20, Estimated GFR (MDRD) 43.00, BUN/ Creatinine Ratio 28.33, Glucose 121 H, Calcium 10.3 H, Total Bilirubin 0.5, AST 13 L, ALT 8 L, Alkaline Phosphatase 116, Total Protein 7.5, Albumin 3.4, Globulin 4.1, Albumin/Globulin Ratio 0.83 01/25/18 05:00: WBC 13.81 H, RBC 4.65, Hgb 11.9 L, Hct 37.3 D, MCV 80.2 L, MCH 25.6 L, MCHC 31.9, RDW Coeff of Ray 15.1 H, Plt Count 190, Immature Gran % (Auto ) 0.4, Neut % (Auto) 65.1, Lymph % (Auto) 26.1, [place] % (Auto) 7.1, Eos % (Auto) 0.9, Baso % (Auto) 0.4, Immature Gran # (Auto) 0.1, Neut # (Auto) 9.0 H, Lymph # (Auto) 3.6 H, [place] # (Auto) 1.0, Eos # (Auto) 0.1, Baso # (Auto) 0.1 PLAN: DISCHARGE HOME TODAY RETURN TO SEE DR. KUHN IN HIS OFFICE ON 01/29/18 AT 11 A.M. RESUME YOUR HOME MEDICATIONS PER LIST PROVIDED BY THE NURSING STAFF PLEASE NOTE THE FOLLOWING CHANGES IN YOUR HOME MEDICATIONS: INCREASE LOSARTAN POTASSIUM (COZAAR) TO 50 MG BY MOUTH TWICE DAILY INCRESE DILTIAZEM HCl (CARDIZEM) TO 90 MG BY MOUTH TWICE DAILY INCREASE FUROSEMIDE (LASIX) 20 MG BY MOUTH DAILY BEFORE BREAKFAST ON AN EMPTY STOMACH PRESCRIPTIONS: COZAAR 50 MG, TAKE ONE TABLET BY MOUTH TWICE DAILY LASIX 20 MG, TAKE ONE TABLET BEFORE BREAKFAST ON AN EMPTY STOMACH DAILY CARDIZEM 30 MG, TAKE ONE TABLET BY MOUTH TWICE DAILY WITH YOUR USUAL CARDIZEM 60 MG TO EQUAL A TOTAL OF 90 MG BY MOUTH TWICE DAILY ACTIVITY GET PLENTY OF REST AT HOME. GRADUALLY INCREASE YOUR ACTIVITY LEVEL ACCORDING TO YOUR TOLERATION DIET CONSISTENT CARBS SUMMARY THE PATIENT IS ALERT AND ORIENTED X3. SHE CURRENTLY RESIDES AT HOME ALONE. HER YOUNGER BROTHER IS SUPPORTIVE OF HER NEEDS AND ASSISTS WITH MEDICATION ADMINISTRATION. MS. VOSS DESIRES TO RETURN TO HER HOME AT DISCHARGE. SHE HAS TWO ROLLATOR WALKERS, TWO CANES, A BEDSIDE COMMODE, SHOWER CHAIR, OXYGEN , NEBULIZER, PORTABLE BLOOD PRESSURE MONITOR, A GLUCOMETER AND TESTING SUPPLIES AT HOME AND AVAILABLE FOR USE. SHE DECLINES OFFERS FOR HOME HEALTH OR HOMEMAKING SERVICES TO BE ARRANGED. THE SKIN IS INTACT AND WITHOUT DECUBITUS ULCERS AT DISCHARGE. TURGOR IS FAIR TO GOOD. HYDRATION AND NUTRITIONAL STATUS ARE IMPROVED SINCE ADMISSION. MS. VOSS TELLS US SHE IS FEELING MUCH BETTER AND NOT AT ALL WEAK. SHE IS AWARE AND AGREEABLE FOR DISCHARGE PLANS TODAY. CURRENT CODE STATUS: DO NOT RESUSCITATE SENAIT TADEO APRN MONCIA KUHN M.D.
--- NOTE | 2018-01-28 11:05 | PN ---
01/22/18: Level 5 01/23/18: Intermediate 01/24/18: Intermediate 01/25/18: D as in discharge MTDD
--- NOTE | 2018-01-30 14:40 | PN ---
DATE OF SERVICE: 01/24/18 SUBJECTIVE: The patient was hospitalized with severe hypertension and renal azotemia. The patient's renal functions are still staying the same level in spite of slow hydration. No evidence of fluid overload. BNP is relatively low for her. No symptoms of fluid overload. We will continue slow IV hydration. Continue to monitor telemetry and blood pressure. The patient was seen and examined with Nurse Practitioner. TIME SPENT: More than 30 minutes. Plan and coordination of the patient's care discussed in the presence of nurse. SUZY
--- NOTE | 2018-02-04 12:55 | HP ---
DATE OF SERVICE: 01/22/18 HISTORY OF PRESENT ILLNESS: This is an 87-year-old white female, who has a history of uncontrolled hypertension. It is thought that she has been noncompliant with her medications likely due to confusion and she does have help from her younger brother; however , she still lives by herself. PAST MEDICAL HISTORY: Diabetes mellitus Type 2 Dyslipidemia Coronary artery disease Hypertension COPD Osteoarthritis PAST SURGICAL HISTORY: Hysterectomy Appendectomy REVIEW OF SYSTEMS: CONSTITUTIONAL: Positive for fatigue and weakness. No night sweats. No malaise , lethargy. No fever or chills. HEENT: Eyes: No visual changes. No eye pain. No eye discharge. ENT: No runny nose. No epistaxis. No sinus pain. No sore throat. No odynophagia. No ear pain. No congestion. RESPIRATORY: No cough, no congestion. No hemoptysis. No shortness of breath. CARDIOVASCULAR: No angina symptoms. No CHF symptoms. No atypical chest pain for CAD. No palpitations. No PND. No orthopnea. GASTROINTESTINAL: No abdominal pain. No nausea or vomiting. No diarrhea or constipation. No hematemesis. No hematochezia. GENITOURINARY: No urgency. No frequency. No dysuria. No hematuria. No obstructive symptoms. No discharge. No pain. No significant abnormal bleeding. MUSCULOSKELETAL: No musculoskeletal pain. No joint swelling. No arthritis. NEUROLOGICAL: No headache. No neck pain. No syncope. No seizures. No dizziness. PSYCHIATRIC: Not anxious. No depression. No suicidal thoughts. No homicidal thoughts. SKIN: No rash. No lesions. No wounds. ENDOCRINE: No unexplained weight loss. No weight gain. HEMATOLOGIC/LYMPHATIC: No anemia. No purpura. No petechiae. No prolonged or excessive bleeding. No palpable lymph nodes. PERSONAL/FAMILY/SOCIAL HISTORY: She has two sisters and one brother still living. One sister diabetic, chronic kidney disease, brother with coronary artery disease. She has never smoked; is ; currently lives alone. No alcohol or illicit drug use. MEDICATIONS: Simvastatin 40 mg p.o. bedtime Metformin 1000 mg p.o. b.i.d. with meal Losartan 50 mg p.o. bedtime Namenda 10 mg p.o. bedtime Aricept 5 mg p.o. bedtime Aspirin 2 tab p.o. bedtime Cardizem 60 mg p.o. q.12hr Nitrostat 0.4 mg SL as directed p.r.n. Aleve 2 tab p.o. daily p.r.n. Lasix 40 mg p.o. b.i.d. p.r.n. Micro K 10 mEq p.o. daily Carvedilol 25 mg p.o. b.i.d. ALLERGIES: NKDA PHYSICAL EXAMINATION: VITAL SIGNS: Temperature 98.3, heart rate 77, respirations 18, BP 178/80, pulse ox 94%. HEENT: Head normocephalic, atraumatic. Eyes: Extraocular muscles are intact. Pupils are equal, round and reactive to light and accommodation. Ears: No lesions. Nose appeared normal. Throat: No exudate or erythema. NECK: Supple. No JVD, no carotid bruit. No lymphadenopathy or thyromegaly. LUNGS: Diminished breath sounds bilaterally. Clear to auscultation. Percussion note normal. Chest symmetrical. HEART: S1, S2, no S3. No murmurs. No cyanosis or clubbing. No ascites. Pulses: Dorsalis pedis and posterior tibial pulses +1 to +2 bilaterally. ABDOMEN: Soft. Nontender. Bowel sounds active. No CVA tenderness. No mass felt. EXTREMITIES: Trace leg edema. Full range of motion of all extremities, equal. NEUROLOGIC: No focal deficit. Cranial nerves II through XII are grossly intact. No headache, no double vision or headache. SKIN: Not dry. Intact. Turgor - normal. LYMPHATIC: No palpable lymph nodes/no lymphedema. MUSCULOSKELETAL: Normal joints with no swelling. Muscle tone is normal. LABS: CT of the brain showed no acute changes. White count 8.59, hemoglobin 11.9, hematocrit 37.7, platelets 182. Sodium 140, potassium 5.3, BUN 50, creatinine 1.86. AST 12, ALT 7, alkaline phosphatase 122. ABGs on room air 02 sat 95, pH 7.405, pc02 40.3, p02 73, bicarb 25.2, total c02 26. BNP 116. ASSESSMENT: 1. UNCONTROLLED HYPERTENSION 2. HYPERKALEMIA 3. ACUTE RENAL AZOTEMIA 4. DIABETES MELLITUS TYPE 2 5. COPD 6. CORONARY ARTERY DISEASE 7. GENERALIZED OSTEOARTHRITIS PLAN: 1. Routine telemetry orders 2. Start IV fluids NS at 75 cc/hr 3. Start Lasix 20 mg IV daily 4. CBC, CMP daily 5. Chest x-ray 6. Low sodium diet 8. Continue home medications 9. Will follow closely TIME SPENT: More than 70 minutes. MTDD
--- NOTE | 2018-02-04 12:58 | PN ---
DATE OF SERVICE: 01/25/18 SUBJECTIVE: The patient is hospitalized with severe hypertension and fluid retention. The patient's fluid retention has subsided. Blood pressure is under control. She is stable enough to be discharged. The patient was seen and examined with the nurse practitioner. TIME SPENT: More than 30 minutes. Plan and coordination of the patient's care discussed in the presence of nurse. SUZY
--- NOTE | 2018-02-05 11:54 | DS ---
DATE OF SERVICE: 01/25/18 FINAL DIAGNOSIS: 1. UNCONTROLLED HTN 2. RENAL AZOTEMIA 3. HYPERKALEMIA, RESOLVED 4. WEAKNESS 5. CAD 6. DYSLIPIDEMIA 7. COPD 8. DIABETES, TYPE 2 9. ARTHRITIS 10. CONSTIPATION 11. STRESS INCONTINENCE 12. DEMENTIA 13. DEPRESSION 14. APPENDECTOMY 15. PARTIAL HYSTERECTOMY 16. CATARACT EXTRACTION, 2017 DISCHARGE INSTRUCTIONS: RETURN TO SEE DR. KUHN IN HIS OFFICE ON 01/29/18 AT 11 A.M. MEDICATIONS AT DISCHARGE: (TAKE THESE HOME MEDICATIONS) Aspirin (Aspirin Ec) 162 mg PO BEDTIME [facility] Last Admin: 01/24/18 20:28 Dose: 162 mg Carvedilol (Coreg) 25 mg PO BIDWM [facility] Last Admin: 01/25/18 09:09 Dose: 25 mg Diltiazem HCl (Cardizem) 90 mg PO Q12HR [facility] Last Admin: 01/25/18 09:09 Dose: 90 mg Donepezil HCl (Aricept) 5 mg PO BEDTIME Furosemide (Lasix Tab) 20 mg PO QDAC [facility] Last Admin: 01/25/18 05:35 Dose: 20 mg Losartan Potassium (Cozaar) 50 mg PO BID [facility] Last Admin: 01/25/18 09:09 Dose: 50 mg Memantine HCl (Namenda) 10 mg PO BIDTIME Metformin HCl (Glucophage) 1,000 mg PO BIDWM Naproxen Sodium (Aleve) 2 tabs PO DAILY PRN Potassium Chloride (Micro-K Cap) 10 meq PO DAILY [facility] Last Admin: 01/25/18 09:08 Dose: 10 meq Simvastatin (Zocor) 40 mg PO BEDTIME MEDICATION CHANGES DURING THIS STAY: Increased Cardizem from 60 mg to 90 mg PO BID Increased Cozaar from 50 mg PO DAILY to 50 mg PO BID Increased Lasix from 40 mg PO BID PRN to 20 mg PO DAILY NEW PRESCRIPTIONS: COZAAR 50 MG, TAKE ONE TABLET BY MOUTH TWICE DAILY LASIX 20 MG, TAKE ONE TABLET BEFORE BREAKFAST ON AN EMPTY STOMACH DAILY CARDIZEM 30 MG, TAKE ONE TABLET BY MOUTH TWICE DAILY WITH YOUR USUAL CARDIZEM 60 MG TO EQUAL A TOTAL OF 90 MG BY MOUTH TWICE DAILY DIET INSTRUCTIONS: CONSISTENT CARBS ACTIVITY: GET PLENTY OF REST AT HOME. GRADUALLY INCREASE YOUR ACTIVITY LEVEL ACCORDING TO YOUR TOLERATION SMOKING: Former smoker - none now DISEASE SPECIFIC EDUCATION: HYPERTENSION HOME MEDICATIONS AND CHANGES NEW PRESCRIPTIONS FOLLOW UP HOSPITAL COURSE: This is an 87-year-old white female who presented to the emergency room with headache, weakness, uncontrolled hypertension. She is also found to be hyperkalemic with potassium of 5.3. She was admitted, placed on IV fluids NS at 75 cc/hr. She was also having some acute kidney injury with BUN in the 40s, creatinine up to 1.3. Over the next 24 hours her blood pressure did slightly improve. Initially it was 180's/90's. This is thought likely she is somewhat noncompliant with her medication due to confusion and dementia. After the first 24 hours we were still in the 170's/80's so we increased her Cardizem to 90 mg b.i.d. and also increased her Cozaar to 50 mg b.i.d. while continuing her Coreg at 25 mg b.i.d. This has seemed to control her blood pressure well. She has remained on routine telemetry. Her heart rate has been steady anywhere from 56 to 77 with increase in Cardizem. I did change her Lasix to 20 mg p.o. initially. She was given Lasix 20 mg IV. Her BNP was low at 116. This was not thought to be a component of CHF. Within 24 hours her potassium level resumed to normal with IV fluids and administration of Lasix. Today, on day of discharge we are at 4.3. Kidney function is improved with IV fluids. BUN 34, creatinine 1.2. Hemoglobin 10, hematocrit 31.2, white count 9.3. Platelets 154. The patient's blood pressure has been well-controlled for the past 36 hours. She denies any weakness. She is in good spirits. She has had no dizziness or light-headedness. She has had no confusion. She has been eating 75 to 100% of her meals. We will send her home with these increase in medications on Cardizem and Cozaar. She has been given instructions as well as her brother who helps her with her appointments. She will be discharged today in stable condition with temperature 98.1, heart rate 66, respirations 20, BP 146/70, pulse ox 96% on room air. TIME SPENT: More than 60 minutes. [facility]ITALLouis
== END 2018-01-25 13:30 | disposition home or self-care (01) | DRG 305 ==
LOC: ED 15:53 → MEDSURG B 18:20
PROVIDERS: ADMIT Internal Medicine; ATTEND Internal Medicine
DX: I10 Essential (primary) hypertension (principal); N17.9 Acute kidney failure, unspecified; E87.5 Hyperkalemia; R51 Headache; R53.1 Weakness; R05 Cough; E11.9 Type 2 diabetes mellitus without complications; I25.10 Atherosclerotic heart disease of native coronary artery without angina pectoris; E78.5 Hyperlipidemia, unspecified; J44.9 Chronic obstructive pulmonary disease, unspecified; M19.90 Unspecified osteoarthritis, unspecified site; K59.00 Constipation, unspecified; N39.3 Stress incontinence (female) (male); F03.90 Unspecified dementia, unspecified severity, without behavioral disturbance, psychotic disturbance, mood disturbance, and anxiety; F32.9 Major depressive disorder, single episode, unspecified; Z91.14 Patient's other noncompliance with medication regimen; Z79.84 Long term (current) use of oral hypoglycemic drugs; Z79.899 Other long term (current) drug therapy
CPT/HCPCS: 36415; 80053; 82550; 82803; 82962; 83880; 84484; 85025; 93005; 93010; 97802; 99283

== ENCOUNTER 2018-03-20 20:57 | Emergency (ER) | payer OTHER ==
[2018-03-20 20:57] VITALS: BMI 21.7
--- NOTE | 2018-03-20 21:23 | ED.PDOC ---
General ED Provider: Dr. MUKESH STOUT Chief Complaint: Multiple Trauma Stated Complaint: Patient was walking on the ramp to the [employer], her foot stuk in the door, she fell back hit the rail BACK OF HER HEAD, and fell backwards, she was able to get up and walk with hel of brother and she attended the [employer] , hurting some in the neck and left knee. so came for the evaluation. NO LOc Time Seen by Physician: 21:22 Mode of Arrival: Wheelchair Information Source: Patient, Family Primary Care Provider: MONICA KUHN Nursing and Triage Documentation Reviewed and Agree: Yes Does patient meet sepsis criteria?: No If yes, has appropriate treatment been initiated?: No System Inflammatory Response Syndrome: Not Applicable Sepsis Protocol: For patient's 13 years and over: Temp is 96.8 and below OR 101 and greater Pulse >90 BPM Resp >20/minute Acutely Altered Mental Status Are patient's symptoms suggestive of a new infection, such as: -Pneumonia -Skin, Soft Tissue -Endocarditis -UTI -Bone, Joint Infection -Implantable Device -Acute Abdominal Infection -Wound Infection -Meningitis -Blood Stream Catheter Infection -Unknown Trauma/Injury Complaint Exam - Head Injury Complaint/Exam Location of Pain: Reports: Scalp, Neck Mechanism of Injury: Reports: Trauma Symptoms Are: Still present Initial Severity: Moderate Current Severity: Moderate Character: Reports: Dull Aggravating: Reports: None Alleviating: Reports: None Associated Signs and Symptoms: Reports: Neck pain. Denies: Confusion, Memory loss, Seizure, Epistaxis, Dental malocclusion, Nausea, Vomiting Loss of Consciousness: None SDH Risk Factors: Present: None Cervical Spine Injury Risk Factors: Present: None Related Surgical History: Reports: None Head Injury Findings: Present: Normal findings Glascow Coma Scale (see protocol): 15 Focal Weakness: Present: None Focal Sensory Loss: Present: None Gait: Normal Gag Reflex Present: Yes Finger to Nose: Normal Differential Diagnoses: Intracranial Bleed, Trauma Review of Systems - Review Of Systems Constitutional: Reports: No symptoms Eyes: Reports: No symptoms Ears, Nose, Mouth, Throat: Reports: No symptoms Respiratory: Reports: No symptoms Cardiac: Reports: No symptoms GI: Reports: No symptoms : Reports: No symptoms Musculoskeletal: Reports: Joint pain Skin: Reports: No symptoms Neurological: Reports: Headache Endocrine: Reports: No symptoms Hematologic/Lymphatic: Reports: No symptoms All Other Systems: Reviewed and Negative Past Medical History - Past Medical History Previously Healthy: Yes Endocrine: Reports: DM 2, Dyslipidemia Cardiovascular: Reports: CAD, Hypertension Respiratory: Reports: COPD Hematological: Reports: None Gastrointestinal: Reports: None Genitourinary: Reports: None Neuro/Psych: Reports: None Musculoskeletal: Reports: Arthritis Cancer: Reports: None Last Menstrual Period: PT HAS HAD A HYSTERECTOMY - Surgical History General Surgical History: Reports: Hysterectomy, Appendectomy - Family History Family History: Reports: Unknown - Social History Smoking Status: Former smoker Hx Substance Use: No Alcohol Screening: None - Immunizations Tetanus Shot up to Date: Yes Physical Exam - Physical Exam Appearance: Well-appearing, Thin Pain Distress: Mild Eyes: EOMI, Conjunctiva clear ENT: Ears normal, Nose normal, Oropharynx normal Respiratory: Airway patent, Breath sounds clear, Breath sounds equal, Respirations nonlabored Cardiovascular: RRR, Pulses normal, No rub, No murmur GI/: Soft, Nontender, No masses, Bowel sounds normal, No Organomegaly Musculoskeletal: Normal strength, ROM intact, No edema, No calf tenderness Skin: Warm, Dry, Normal color Neurological: Sensation intact (ataxic), Motor intact (left leg weak from left knee pain), Reflexes intact, Cranial nerves intact, Alert, Oriented Psychiatric: Affect appropriate, Mood appropriate Interpretation - Radiology Interpretation Radiology Interpretation By: Radiologist Radiology Results: Positive Exam Interpreted: CT Scan Critical Care Note - Critical Care Note Total Time (mins): 30 Course - Course Hematology/Chemistry: 03/20/18 22:41 Orders, Labs, Meds: Lab Review 03/20/18 22:41 WBC 8.02 RBC 3.91 L Hgb 10.1 L Hct 31.9 L MCV 81.6 MCH 25.8 L MCHC 31.7 L RDW Coeff of Ray 17.3 H Plt Count 217 Immature Gran % (Auto) 0.2 Neut % (Auto) 51.8 Lymph % (Auto) 39.9 [place] % (Auto) 6.7 Eos % (Auto) 1.0 Baso % (Auto) 0.4 Immature Gran # (Auto) 0.0 Neut # (Auto) 4.2 Lymph # (Auto) 3.2 [place] # (Auto) 0.5 Eos # (Auto) 0.1 Baso # (Auto) 0.0 Orders Category Date Time Status EKG-(ED ONLY) Stat CARDIO 03/20/18 22:31 Completed CBC W/ AUTO DIFF Stat LAB 03/20/18 22:41 Completed COMPREHENSIVE METABOLIC PANEL Stat LAB 03/20/18 22:41 Received CREATINE KINASE Stat LAB 03/20/18 22:41 Received TROPONIN I Stat LAB 03/20/18 22:41 Received UA [URINALYSIS C & S IF INDICATED] Stat LAB 03/20/18 22:[address] CERVICAL SPINE W/O CONTRAST Stat RADS 03/20/18 21:[address] HEAD W/O CONTRAST Stat RADS 03/20/18 21:20 Completed KNEE, LEFT 4 VIEWS Stat RADS 03/20/18 21:20 Completed Vital Signs: Temp Pulse Resp BP Pulse Ox 03/20/18 22:02 97 H 18 160/77 H 96 03/20/18 20:58 98.5 F 79 20 188/69 H 94 L Departure - Departure Time of Disposition: 23:04 Disposition: TSF OTHER Discharge Problem: Status post fall Stroke Qualifiers: CVA mechanism: embolism Precerebral and cerebral artery: posterior cerebral artery Laterality of affected vessel: left Qualified Code(s): 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 Head injury Qualifiers: Encounter type: initial encounter Qualified Code(s): S09.90XA - Unspecified injury of head, initial encounter Instructions: Ischemic Stroke (DC) Condition: Stable Pt referred to PMD for follow-up: Yes IPMP verified?: No Additional Instructions: Patients brother is in the room, who is a retired [employer], wanted to be transferred to [place] for higher care Allergies/Adverse Reactions: Allergies No Known Allergies Allergy (Verified 01/22/18 15:57) Home Medications: Ambulatory Orders Metformin HCl [Glucophage] 1,000 mg PO BIDWM 04/23/13 Simvastatin [Zocor] 40 mg PO BEDTIME 04/23/13 Aspirin [Aspirin EC] 2 tab PO BEDTIME 07/03/16 Donepezil HCl [Aricept] 5 mg PO BEDTIME 07/03/16 Memantine HCl [Namenda] 10 mg PO BEDTIME 07/03/16 Naproxen Sodium [Aleve] 2 tab PO DAILY PRN 10/24/16 Nitroglycerin [Nitrostat] 0.4 mg SL DIRECTED PRN 01/31/17 Potassium Chloride [Micro-K Cap] 10 meq PO DAILY #30 capsule.er 10/27/16 Carvedilol 25 mg PO BID 01/22/18 Diltiazem HCl [Cardizem] 30 mg PO BID #60 tablet 01/25/18 Furosemide [Lasix Tab] 20 mg PO QDAC #30 tablet 01/25/18 Losartan Potassium [Cozaar] 50 mg PO BID #60 tablet 01/25/18 Disposition Discussed With: Patient, Family
--- NOTE | 2018-03-20 22:08 | DI ---
EXAM: The left knee four views HISTORY: Fall COMPARISON: Seen 06/04/2016 FINDINGS: There is narrowing of the medial and patellofemoral joint compartments. There is no acute fracture or joint effusion. Mild soft tissue swelling is noted medially. IMPRESSION: Osteoarthritic degenerative changes. No acute fracture or joint effusion
--- NOTE | 2018-03-20 22:14 | CT ---
EXAM: CT scan brain without contrast HISTORY: Fall COMPARISON: CT scan brain 01/22/2018 FINDINGS: Contiguous axial images obtained from skull base to the convexities without contrast utili zing 5-mm collimation. Sagittal and coronal reconstructions were imaged and reviewed. The ventricle s and CSF spaces are prominent compatible with age appropriate atrophy.. There is periventricular hy podensity noted compatible with chronic microvascular disease.. There is a new area of hypodensity w ithin the left occipital lobe in the distribution of the left posterior cerebral artery... Atheroscl erotic changes are seen involving cavernous internal carotid arteries. Visualized paranasal sinuses and mastoid air cells are clear. IMPRESSION: New hypodensity left occipital lobe compatible with acute/subacute infarct left COMMUNITY DEVELOPMENT COORDINATOR distribution.
--- NOTE | 2018-03-20 22:20 | CT ---
EXAM: CT scan cervical spine HISTORY: Fall COMPARISON: None. FINDINGS: Contiguous axial images obtained through the cervical spine utilizing 2-mm collimation. S agittal and coronal reconstructions were imaged and reviewed. There is 2 mm retrolisthesis C5-C6 with disc space narrowing C5-C6. There is 1.7 mm anterolisthesis C4/C5.. There is 2.5 mm anterolisthesi s C7/T1. The facet joints are intact.. There is multilevel facet arthropathy with multilevel neural foraminal narrowing.. There is moderate central disc protrusion C3-C4 narrowing the AP dimension of the central canal. There is a right neural foraminal narrowing. At C4-C5 the left neural foraminal narrowing secondary to uncovertebral and facet hypertrophy. AtC5-C6 there is bilateral neural rizwana inal narrowing secondary to uncovertebral degenerative changes. At C6-C7 there is right neural rizwana inal narrowing secondary to uncovertebral and facet hypertrophy. IMPRESSION: Degenerate disc disease most prominent C5-C6. Multilevel central canal foraminal stenosis without acute findings
[2018-03-21 00:40] VITALS: BP 154/96; TEMP 98.6
== END 2018-03-21 01:45 | disposition short-term general hospital (02) ==
LOC: ED 20:57
DX: I63.432 Cerebral infarction due to embolism of left posterior cerebral artery (principal); S09.90XA Unspecified injury of head, initial encounter; M54.2 Cervicalgia; M25.562 Pain in left knee; W19.XXXA Unspecified fall, initial encounter; Y92.22 Religious institution as the place of occurrence of the external cause; E78.5 Hyperlipidemia, unspecified; E11.9 Type 2 diabetes mellitus without complications; I10 Essential (primary) hypertension; I25.10 Atherosclerotic heart disease of native coronary artery without angina pectoris; Z79.899 Other long term (current) drug therapy
CPT/HCPCS: 36415; 80053; 81001; 82550; 84484; 85025; 87086; 87186; 93005; 93010; 99285

== ENCOUNTER 2018-06-11 12:59 | Outpatient (CLI) | END 2018-06-11 13:00 | disposition home or self-care (01) | LOC: CAR 12:59 | PROVIDERS: ATTEND Internal Medicine | DX: I48.91 Unspecified atrial fibrillation (principal) | CPT/HCPCS: 93227 ==

== ENCOUNTER 2018-06-20 13:54 | Outpatient (RCR) | payer OTHER ==
--- NOTE | 2018-06-21 10:06 | RS.OPPTEV2 ---
Date of Note: 06/20/18 Visit #: 1 Date of Evaluation: 06/20/18 Payer Source: MEDICARE Treatment Diagnosis: Difficulty walking and weakness. History of Condition/Mechanism of Injury:: pt has begun having increased difficulty walking, and taking care of self. States she has had multiple falls the most recent being approx 2 weeks ago. Prior Level of Function.....Patient was independent with: ADL's, Self Care, Ambulation/Mobility, Community Integration/Access Level of Function: pt amb without AD with assist of brother, who also assists with ADL's Functional Limitations: Self Care, ADL's, Pulling, Lifting, Carrying, Standing, Bending, Squatting, Ambulation, Community Access/Integration Current Subjective/complaints:: pt states she has moved in with her brother due to weakness and unable to care for self at home. She states she feels she needs a rwx to improve safety with gait. Treatment Side (optional): N/A *Precautions: fall precautions Medical History Medical History: Hypertension, COPD, Diabetes, Arthritis Medical History Comments:: CAD, osteoporosis Surgical History: Hysterectomy Surgical History Comments:: amrita Smoking Status: Never smoker Hx Home Medications: albuterol, arformoterol, carvedilol, dabigatran, dilitiazem , furosemide, losartan, memantine, metformin, nitroglycerin, simvastatin Patient's Goals: Be stronger and be able to walk better. Pain Assessment - Pain Description Pain Location: B knees Pain Description: Aching Current Pain Intensity: 1-2 Functional Outcome Measure Tinetti: 12 (57%) - G Codes & Severity Modifier G Codes & Modifier: mobility walking and moving around: current CK. mobility walking and moving around: goal CJ Source of G Code score: tinetti balance assessment Observation - Observation Inspection: pitting edema LLE Posture: Forward Head, Rounded Shoulders, Increased Thoracic Kyphosis, Decreased Lumbar Lordosis Handedness: Right Gait - Gait Pattern General Gait Pattern Observation: Narrow Based Gait Gait Comments: pt amb with flexed posture, decreased step length, decreased ALLIE occasional scissoring, pt requires verbal cues as well as tactile cues for sequencing with rwx as well as for posture. pt requires min assit with amb with rwx with 3-4 episodes of LOB requiring CGA to min to prevent fall. Gait speed: 0.25 m/s which is consistent with household ambulator General Range of Motion: BUE WFL's. BLE: L knee flex 110 ext -10. R knee flex 104 ext -14 otherwise WFL's Muscle Strength: LUE shld flex 3/5, elbow flex/ext 3+/5,. RUE shld flex 4-/5, elbow flex/ext 4-/5. LLE hip flex 4-/5, knee flex 4-/5, ext 3-/5, ankle DF/PF 4 -/5. RLE hip flex 3-/5, knee flex 4-/5, ext 3-/5, ankle DF/PF 4-/5 Palpation Palpation Findings: Tenderness Comments:: B knees tender to palpation Sensation - Sensation Right Upper Extremity: Intact/Normal Left Upper Extremity: Intact/Normal Right Lower Extremity: Intact/Normal Left Lower Extremity: Intact/Normal Balance - Sitting Balance Static Sitting Balance: Good Dynamic Sitting Balance: Fair - Standing Balance Static Standing Balance: Poor Dynamic Standing Balance: Poor - Comments Balance Assessment Comments: tinetti balance score 12/28 consistent with high risk of falls Interventions - Exercise/Activities/Manual Therapy Exercises/Activities: pt performed BLE HS, hip abd/add, AP, LAQ pt requires hands on assist with constant cues for technique Manual Therapy: NA HOME EXERCISE PROGRAM: pt given written HEP including AP, hip abd/add, HS, LAQ - Charges Timed Code Treatment Minutes: 58 Total Treatment Time: 64 Procedures billed for this date of service:: eval med EVALUATION COMPLEXITY LEVEL EVALUATION COMPLEXITY LEVEL: HISTORY: Medium (DM, HTN, CVA, COPD), EXAM OF BODY SYSTEMS: Medium (posture, balance, strength, gait, transfers), CLINICAL PRESENTATION: Medium (evolving), CLINICAL DECISION MAKING: Medium Assessment Assessment: pt presents with decreased strength, balance, increased fall risk, decreased gait safety. Feel pt would benefit from use of rwx to improve safety with gait as well as therex for strengthening and balance activities to improve functional mobility. Patient Education: Home Exercise Program, Education of Plan of Care Rehab Potential: Good Short Term Goals Goal #1: pt transfer sup to/from sit CGA, sit to/from stand with verbal cues only Goal to be met by: 07/11/18 Goal #2: pt amb in dept with rwx with CGA with improved posture and ALLIE no LOB Goal to be met by: 07/11/18 Goal #3: pt improve gait speed to 0.3m/s to improve safety with gait Goal to be met by: 07/11/18 Goal #4: Improve dyn stand balance as noted by tinetti score of Goal to be met by: 07/11/18 [facility] Goals Goal #1: pt/caregiver independent with HEP to maintain functional gains after DC Goal to be met by: 08/01/18 Goal #2: pt amb community distance with rwx with SBA with no LOB Goal to be met by: 08/01/18 Goal #3: tinetti score > consistent w decreased fall risk Goal to be met by: 08/01/18 Goal #4: BLE strength improved to 4/5 to allow for increased independence w transfer Goal to be met by: 08/01/18 Plan - Treatment to be Provided Procedures: Therapeutic Exercises, Therapeutic Activity, Gait Training, Patient Education Modalities: Cryotherapy, Hot Packs - Treatment Plan Frequency: 2-3x a week Duration: 6 weeks ORDER # VISITS AND/OR THROUGH DATE: 08/01/18 - Treatment Code (1) Muscle weakness Code(s): M62.81 - MUSCLE WEAKNESS (GENERALIZED) (2) Gait abnormality Code(s): R26.9 - UNSPECIFIED ABNORMALITIES OF GAIT AND MOBILITY (3) Impairment of balance Code(s): R26.89 - OTHER ABNORMALITIES OF GAIT AND MOBILITY
== END 2018-06-23 23:59 | disposition short-term general hospital (02) ==
PROVIDERS: ATTEND Internal Medicine
DX: R26.89 Other abnormalities of gait and mobility (principal); M62.81 Muscle weakness (generalized)

== ENCOUNTER 2018-07-17 11:00 | Outpatient (RCR) ==
--- NOTE | 2018-06-25 16:15 | RS.OPPTDN ---
Subjective Date of Note: 06/25/18 Visit #: 2 Date of Evaluation: 06/20/18 Payer Source: MEDICARE Treatment Diagnosis: Difficulty walking and weakness. Current Subjective/complaints:: Patient reports fatigue and some SOB during exercise. States she received her new rolling walker today and feels she will be much safer with ambulation. *Precautions: fall precautions Interventions - Exercise/Activities/Manual Therapy Exercises/Activities: In sitting, 1# to each LE for resistive LAQ and alt hip flexion, 2s/10reps. Isometric hip add with ball. Overhead shoulder flexion and horz abd while holding ball, 2s/5reps each direction. Yellow theraband for scap retraction, 2s/10reps. Sit to stand 3reps. Standing with assist while performing reaching. Standing at handrail for mini-squats and marching. Breaks to rest and control breathing. Walking in department and in hallway with RW with CGA and verbal cues for safety. She demos left LE cross over right with a turn and had LOB, corrected with assist from therapist. Focus of patient education is safety with amb and with transfers. Total minutes of Exercise: [id number], Therapeutic Act 12mins Manual Therapy: NA HOME EXERCISE PROGRAM: pt given written HEP including AP, hip abd/add, HS, LAQ - Charges Timed Code Treatment Minutes: 42mins Total Treatment Time: 45mins Procedures billed for this date of service:: EX2, Therapeutic Act Assessment: Patient responsive to verbal cues for safety with amb and transfers. Patient Education: Body/Joint mechanics, Home Exercise Program, Home Safety, Activity Modification Patient demonstrates compliance with HEP?: Yes Short Term Goals Goal #1: pt transfer sup to/from sit CGA, sit to/from stand with verbal cues only Goal to be met by: 07/11/18 Progress towards Goal:: Progressing Goal #2: pt amb in dept with rwx with CGA with improved posture and ALLIE no LOB Goal to be met by: 07/11/18 Progress towards Goal:: Progressing Goal #3: pt improve gait speed to 0.3m/s to improve safety with gait Goal to be met by: 07/11/18 Goal #4: Improve dyn stand balance as noted by tinetti score of Goal to be met by: 07/11/18 Senior Living Goals Goal #1: pt/caregiver independent with HEP to maintain functional gains after DC Goal to be met by: 08/01/18 Goal #2: pt amb community distance with rwx with SBA with no LOB Goal to be met by: 08/01/18 Goal #3: tinetti score >19/28 consistent w decreased fall risk Goal to be met by: 08/01/18 Goal #4: BLE strength improved to 4/5 to allow for increased independence w transfer Goal to be met by: 08/01/18 Plan PLAN OF CARE EXPIRES ON:: 08/01/18 ORDER # VISITS AND/OR THROUGH DATE: 08/01/18 PLAN: Continue strengthening exercise and balance activity to increase patients safety with all functional activities.
--- NOTE | 2018-06-26 14:57 | RS.OPPTDN ---
Subjective Date of Note: 06/26/18 Visit #: 3 Date of Evaluation: 06/20/18 Payer Source: MEDICARE Treatment Diagnosis: Difficulty walking and weakness. Current Subjective/complaints:: Patient reports she is walking around her home more with her new RW. States she is feels more safe with ambulation. *Precautions: fall precautions Interventions - Exercise/Activities/Manual Therapy Exercises/Activities: In sitting, 1# to each LE for resistive LAQ and alt hip flexion, 2s/10reps. Isometric hip add with ball. Overhead shoulder flexion and horz abd while holding ball, 2s/5reps each direction. Yellow theraband for resistive hip abd, ham curls, and bilateral horz shoulder abd, all 2s/10reps each. Yellow theraband for scap retraction, 2s/10reps. Sit to stand 2s/3reps. Standing with assist while performing reaching. Standing at handrail for mini- squats, marching, toe-ups, and alt hip abd. Patient takes frequent rest breaks. Walking in department and in hallway with RW with CGA and verbal cues for safety. Verbal cues to avoid left LE cross over right with a turn and to increase stride width and height. Patient education continues to focus on safety with amb and work on safety with transfers into car. Total minutes of Exercise: EX 30mins, Therapeutic Activity 11mins Manual Therapy: NA HOME EXERCISE PROGRAM: pt given written HEP including AP, hip abd/add, HS, LAQ - Charges Timed Code Treatment Minutes: 41mins Total Treatment Time: 46mins Procedures billed for this date of service:: EX2, Therapeutic Act Assessment: Patient attentive to safety cues and able to progress strengthening exercise today. Patient Education: Home Exercise Program, Home Safety, Activity Modification Patient demonstrates compliance with HEP?: Yes Short Term Goals Goal #1: pt transfer sup to/from sit CGA, sit to/from stand with verbal cues only Goal to be met by: 07/11/18 Progress towards Goal:: Progressing Goal #2: pt amb in dept with rwx with CGA with improved posture and ALLIE no LOB Goal to be met by: 07/11/18 Progress towards Goal:: Progressing Goal #3: pt improve gait speed to 0.3m/s to improve safety with gait Goal to be met by: 07/11/18 Goal #4: Improve dyn stand balance as noted by tinetti score of 18/28 Goal to be met by: 07/11/18 Medical Pathology Teacher Goals Goal #1: pt/caregiver independent with HEP to maintain functional gains after DC Goal to be met by: 08/01/18 Goal #2: pt amb community distance with rwx with SBA with no LOB Goal to be met by: 08/01/18 Progress towards goal: Progressing Goal #3: tinetti score >19/28 consistent w decreased fall risk Goal to be met by: 08/01/18 Goal #4: BLE strength improved to 4/5 to allow for increased independence w transfer Goal to be met by: 08/01/18 Plan PLAN OF CARE EXPIRES ON:: 08/01/18 ORDER # VISITS AND/OR THROUGH DATE: 08/01/18 PLAN: Progress with strengthening and balance exercise to increase safety with functional daily activities.
--- NOTE | 2018-06-28 15:56 | RS.OPPTDN ---
Subjective Date of Note: 06/28/18 Visit #: 4 Date of Evaluation: 06/20/18 Payer Source: MEDICARE Treatment Diagnosis: Difficulty walking and weakness. Current Subjective/complaints:: Patient reports more difficulty breathing today as she has not had a breathing treatment. *Precautions: fall precautions Interventions - Exercise/Activities/Manual Therapy Exercises/Activities: Isometric hip add with ball. Overhead shoulder flexion and horz abd while holding ball, 2s/5reps each direction. Yellow theraband for resistive hip abd, ham curls, and bilateral horz shoulder abd, all 2s/10reps each. Yellow theraband for scap retraction, 2s/10reps. 1 1/2# to each ankle for LAQ and hip flexion, 2s/10reps each. Sit to stand 2s/3reps. Standing with assist while performing reaching. Standing performing resistive shoulder ext with yellow theraband, 2s/5reps each side. Standing with walker and CGA for mini -squats, marching, toe-ups, and alt hip abd. Patient takes frequent rest breaks. Walking in department and in hallway with RW with CGA and verbal cues for safety. Verbal cues to increase step height, length, and avoid close placement. Patient education continues to focus on safety with amb and to car in parking lot. Total minutes of Exercise: EX 30mins, Therapeutic Act 13mins Manual Therapy: NA HOME EXERCISE PROGRAM: pt given written HEP including AP, hip abd/add, HS, LAQ - Charges Timed Code Treatment Minutes: 43mins Total Treatment Time: 43mins Procedures billed for this date of service:: EX2, Therapeutic Act Assessment: Patient able to increase PRE's and balance activity. Patient Education: Body/Joint mechanics, Home Exercise Program, Home Safety, Activity Modification Patient demonstrates compliance with HEP?: Yes Short Term Goals Goal #1: pt transfer sup to/from sit CGA, sit to/from stand with verbal cues only Goal to be met by: 07/11/18 Progress towards Goal:: Progressing Goal #2: pt amb in dept with rwx with CGA with improved posture and ALLIE no LOB Goal to be met by: 07/11/18 Progress towards Goal:: Progressing Goal #3: pt improve gait speed to 0.3m/s to improve safety with gait Goal to be met by: 07/11/18 Goal #4: Improve dyn stand balance as noted by tinetti score of Goal to be met by: 07/11/18 Legal Adviser Goals Goal #1: pt/caregiver independent with HEP to maintain functional gains after DC Goal to be met by: 08/01/18 Goal #2: pt amb community distance with rwx with SBA with no LOB Goal to be met by: 08/01/18 Progress towards goal: Progressing Goal #3: tinetti score >/28 consistent w decreased fall risk Goal to be met by: 08/01/18 Goal #4: BLE strength improved to 4/5 to allow for increased independence w transfer Goal to be met by: 08/01/18 Plan PLAN OF CARE EXPIRES ON:: 08/01/18 ORDER # VISITS AND/OR THROUGH DATE: 08/01/18 PLAN: Progress strengthening and balance to increase patients safety and independence with functional activities.
--- NOTE | 2018-07-01 16:04 | RS.OPPTDN ---
Subjective Date of Note: 07/01/18 Visit #: 5 Date of Evaluation: 06/20/18 Payer Source: MEDICARE Treatment Diagnosis: Difficulty walking and weakness. Current Subjective/complaints:: Patient states she feels she is doing better with walking and seems to be stronger. *Precautions: fall precautions Pain Assessment - Pain Description Other Comments regarding Pain:: Reports some discomfort bilateral knees with standing exercises. Interventions - Exercise/Activities/Manual Therapy Exercises/Activities: Isometric hip add with ball. Overhead shoulder flexion and horz abd while holding ball, chest passing, all 2s/5reps each. Increased to red theraband for resistive hip abd, ham curls, and bilateral horz shoulder abd , all 2s/10reps each. Increased to red theraband for scap retraction, 2s/ 10reps. Worked on sit to and from supine with safety cues. 2# for SAQ and alt hip flexion, 2s/10reps each. In sitting, increased to 2# to each ankle for LAQ and hip flexion, 2s/10reps each. LTR with ball between knees, 10reps. Sit to stand 2s/3reps. 1# dumbells for shoulder flexion in sitting and in standing with SBA, 2s/5reps each. Standing with assist while performing reaching and chest passing of small ball. Standing performing resistive bilateral shoulder ext with red theraband, 2s/5reps. Walking in department with RW making turns to left 4reps then turns to right 7times with constant cues to keep wide foot placement and avoid crossing over LE's. Standing with walker and CGA for mini- squats, marching, toe-ups, and alt hip abd. Patient takes frequent rest breaks. Walking in department and in hallway with RW with CGA and verbal cues for safety. Verbal cues to increase step height, length, and avoid close placement. Patient education continues to focus on safety with amb and to car in parking lot. Total minutes of Exercise: EX 30mins, GT 16mins Manual Therapy: NA HOME EXERCISE PROGRAM: pt given written HEP including AP, hip abd/add, HS, LAQ - Charges Timed Code Treatment Minutes: 46mins Total Treatment Time: 48mins Procedures billed for this date of service:: EX2, GT Assessment: Patient responding well to treatment. She is able to progress with PRE's and balance activity. Patient needs continued training and monitoring for safety with functional mobility. Patient Education: Body/Joint mechanics, Home Exercise Program, Home Safety, Activity Modification Patient demonstrates compliance with HEP?: Yes Short Term Goals Goal #1: pt transfer sup to/from sit CGA, sit to/from stand with verbal cues only Goal to be met by: 07/11/18 Progress towards Goal:: Progressing Goal #2: pt amb in dept with rwx with CGA with improved posture and ALLIE no LOB Goal to be met by: 07/11/18 Progress towards Goal:: Progressing Goal #3: pt improve gait speed to 0.3m/s to improve safety with gait Goal to be met by: 07/11/18 Goal #4: Improve dyn stand balance as noted by tinetti score of Goal to be met by: 07/11/18 [employer] Goals Goal #1: pt/caregiver independent with HEP to maintain functional gains after DC Goal to be met by: 08/01/18 Goal #2: pt amb community distance with rwx with SBA with no LOB Goal to be met by: 08/01/18 Progress towards goal: Progressing Goal #3: tinetti score >/28 consistent w decreased fall risk Goal to be met by: 08/01/18 Goal #4: BLE strength improved to 4/5 to allow for increased independence w transfer Goal to be met by: 08/01/18 Plan PLAN OF CARE EXPIRES ON:: 08/01/18 ORDER # VISITS AND/OR THROUGH DATE: 08/01/18 PLAN: Continue and progress with strengthening and balance to increase patients safety and independence with all functional activities.
--- NOTE | 2018-07-03 13:40 | RS.OPPTDN ---
Subjective Date of Note: 07/03/18 Visit #: 6 Date of Evaluation: 06/20/18 Payer Source: MEDICARE Treatment Diagnosis: Difficulty walking and weakness. Current Subjective/complaints:: Patient reports she feels safer with ambulation in her home with RW. *Precautions: fall precautions Interventions - Exercise/Activities/Manual Therapy Exercises/Activities: Isometric hip add with ball. Added 1# cuff weight to each wrist during overhead shoulder flexion and horz abd while holding ball, 2s/ 5reps each. Red theraband for resistive hip abd, ham curls, and bilateral horz shoulder abd, all 2s/10reps. In supine, increased to 2 1/2# to each ankle for LAQ and hip flexion, 2s/10reps each. Standing with assist while performing reaching and chest passing of small ball. Standing with walker and CGA for marching and toe-ups, 1# weight to each LE. Side-stepping with CUSTOMER LIAISON at gait belt with 1# to each LE. Walking in department and hallway with RW, then making turns to left 4reps and right 4 times with cues for walker placement, wide foot placement and avoid crossing over LE's. Patient takes frequent rest breaks. Walking in department and in hallway with RW with CGA for Gait Speed test. Verbal cues to increase step height, length, and stance width. Patient education continues to focus on safety with all functional mobility. She only demos slight LOB twice during treatment session today, and actively tries to self correct posture and foot placement. Total minutes of Exercise: [id number], [id number] Manual Therapy: NA HOME EXERCISE PROGRAM: pt given written HEP including AP, hip abd/add, HS, LAQ - Objective Findings Observations,measurements,etc.: Patient elijah an improvement on the Gait Speed test to 0.4 m/sec. - Charges Timed Code Treatment Minutes: 44mins Total Treatment Time: 47mins Procedures billed for this date of service:: EX2, GT Assessment: Patient making consistent progress, and is motivated to make further gains with safe, functional activities. Patient Education: Body/Joint mechanics, Home Exercise Program, Home Safety, Activity Modification Patient demonstrates compliance with HEP?: Yes Short Term Goals Goal #1: pt transfer sup to/from sit CGA, sit to/from stand with verbal cues only Goal to be met by: 07/11/18 Progress towards Goal:: Progressing Goal #2: pt amb in dept with rwx with CGA with improved posture and ALLIE no LOB Goal to be met by: 07/11/18 Progress towards Goal:: Progressing Goal #3: pt improve gait speed to 0.3m/s to improve safety with gait Goal to be met by: 07/11/18 Progress towards Goal:: Progressing Goal #4: Improve dyn stand balance as noted by tinetti score of Goal to be met by: 07/11/18 Care Home Goals Goal #1: pt/caregiver independent with HEP to maintain functional gains after DC Goal to be met by: 08/01/18 Goal #2: pt amb community distance with rwx with SBA with no LOB Goal to be met by: 08/01/18 Progress towards goal: Progressing Goal #3: tinetti score >/28 consistent w decreased fall risk Goal to be met by: 08/01/18 Goal #4: BLE strength improved to 4/5 to allow for increased independence w transfer Goal to be met by: 08/01/18 Plan PLAN OF CARE EXPIRES ON:: 07/01/18 ORDER # VISITS AND/OR THROUGH DATE: 08/01/18 PLAN: Continue to progress strengthening and balance work to increase patients safety and functional independence.
--- NOTE | 2018-07-05 14:01 | RS.OPPTDN ---
Subjective Date of Note: 07/05/18 Visit #: 7 Number of visits approved by Insurance: NA Date of Evaluation: 06/20/18 Payer Source: MEDICARE Treatment Diagnosis: Difficulty walking and weakness. Current Subjective/complaints:: Patient reports she did not feel well yesterday. States "I felt funny all over, but it is hard to describe". Upon discussion with patient and her brother, he reported her BP was lower than normal and agrees to contact physican if this persists. *Precautions: fall precautions Interventions - Exercise/Activities/Manual Therapy Exercises/Activities: Isometric hip add with ball. 1# weight to each wrist during overhead shoulder flexion and horz abd while holding ball, 2s/5reps each. 3# wand for overhead shoulder flexion. Increased to green theraband for resistive hip abd, ham curls, and bilateral horz shoulder abd, all 2s/10reps. Worked on sit to stand x5reps with reaching activities. Chest passing of small ball in standing, 3s/5reps. Standing with walker and CGA for marching, toe-ups, and ham curls, 1# weight to each LE. Side-stepping with COMMISSIONS SPECIALIST at gait belt. Walking in department and hallway with RW, with verbal cues for foot placement and walker position with turns. Patient education on safety with all functional mobility. Patient demos slight decrease in steady posture when walking, and increased SOB. Total minutes of Exercise: [id number], [id number], [id number] Manual Therapy: NA HOME EXERCISE PROGRAM: pt given written HEP including AP, hip abd/add, HS, LAQ - Charges Timed Code Treatment Minutes: 44mins Total Treatment Time: 44mins Procedures billed for this date of service:: EX, GT, NEURO Assessment: Focus on balance work and patient education of safety. Patient and brother agree to contact physician if patient continues to not feel well or demos balance issues. Patient Education: Home Exercise Program, Home Safety, Activity Modification Patient demonstrates compliance with HEP?: Yes Short Term Goals Goal #1: pt transfer sup to/from sit CGA, sit to/from stand with verbal cues only Goal to be met by: 07/11/18 Progress towards Goal:: Progressing Goal #2: pt amb in dept with rwx with CGA with improved posture and ALLIE no LOB Goal to be met by: 07/11/18 Progress towards Goal:: Progressing Goal #3: pt improve gait speed to 0.3m/s to improve safety with gait Goal to be met by: 07/11/18 Progress towards Goal:: Progressing Goal #4: Improve dyn stand balance as noted by tinetti score of Goal to be met by: 07/11/18 Custodial Goals Goal #1: pt/caregiver independent with HEP to maintain functional gains after DC Goal to be met by: 08/01/18 Goal #2: pt amb community distance with rwx with SBA with no LOB Goal to be met by: 08/01/18 Progress towards goal: Progressing Goal #3: tinetti score >28 consistent w decreased fall risk Goal to be met by: 08/01/18 Goal #4: BLE strength improved to 4/5 to allow for increased independence w transfer Goal to be met by: 08/01/18 Plan Dates of Yarn Weigher Goals: 08/01/18 Expiration date of current Insurance Approval:: NA PLAN: Continue and progress with safe and independent functional ambulation.
--- NOTE | 2018-07-09 13:23 | RS.OPPTDN ---
Subjective Date of Note: 07/09/18 Visit #: 8 Number of visits approved by Insurance: NA Date of Evaluation: 06/20/18 Payer Source: MEDICARE Treatment Diagnosis: Difficulty walking and weakness. Current Subjective/complaints:: Patient reports she is getting around her home much better with RW. States she went shopping a few days ago but was unable to walk through the store. *Precautions: fall precautions Interventions - Exercise/Activities/Manual Therapy Exercises/Activities: Isometric hip add with ball. 1# weight to each wrist during overhead shoulder flexion and horz abd while holding ball, 2s/5reps each. 3# wand for overhead shoulder flexion. Green theraband for resistive hip abd, ham curls, and bilateral horz shoulder abd, all 2s/10reps. 2# to each LE for LAQ and hip flexion. Worked on repetitive sit to stand x5reps with reaching activities. Chest passing of small ball in standing, 3s/5reps. Standing with walker and CGA for marching, toe-ups, and ham curls. 1 1/2# to each LE and RIDE MECHANIC for side-stepping and marching. Walking in department and hallway with RW, with focus on making 180 degrees turns. Need constant verbal cues for foot placement and walker position with turns for balance. Patient given assist at gait belt to stabilize balance. Patient education on safety with all functional mobility. Total minutes of Exercise: EX 22mins, NEURO 10mins, GT 10mins Manual Therapy: NA HOME EXERCISE PROGRAM: pt given written HEP including AP, hip abd/add, HS, LAQ - Charges Timed Code Treatment Minutes: 42mins Total Treatment Time: 42mins Procedures billed for this date of service:: EX, GT, NEURO Assessment: Patient improving with static standing balance activities, but continues to have some difficulty with dynamic activities. She is actively correcting foot placement with cues. Patient Education: Home Exercise Program, Home Safety, Activity Modification Patient demonstrates compliance with HEP?: Yes Short Term Goals Goal #1: pt transfer sup to/from sit CGA, sit to/from stand with verbal cues only Goal to be met by: 07/11/18 Progress towards Goal:: Partially Met Goal #2: pt amb in dept with rwx with CGA with improved posture and ALLIE no LOB Goal to be met by: 07/11/18 Progress towards Goal:: Partially Met Goal #3: pt improve gait speed to 0.3m/s to improve safety with gait Goal to be met by: 07/11/18 Progress towards Goal:: Progressing Goal #4: Improve dyn stand balance as noted by tinetti score of Goal to be met by: 07/11/18 Poultry Hanger Goals Goal #1: pt/caregiver independent with HEP to maintain functional gains after DC Goal to be met by: 08/01/18 Progress towards goal: Progressing Goal #2: pt amb community distance with rwx with SBA with no LOB Goal to be met by: 08/01/18 Progress towards goal: Partially Met Goal #3: tinetti score >28 consistent w decreased fall risk Goal to be met by: 08/01/18 Goal #4: BLE strength improved to 4/5 to allow for increased independence w transfer Goal to be met by: 08/01/18 Plan Dates of Poultry Hanger Goals: 08/01/18 Expiration date of current Insurance Approval:: 08/01/18 PLAN: Continue with strengthening and balance activity to increase patients safety and independence with functional mobility.
--- NOTE | 2018-07-12 15:41 | RS.OPPTDN ---
Subjective Date of Note: 07/12/18 Visit #: 9 Number of visits approved by Insurance: Reassess at 10th visit for further need. Date of Evaluation: 06/20/18 Payer Source: MEDICARE Treatment Diagnosis: Difficulty walking and weakness. Current Subjective/complaints:: Patient says that she is only having trouble with going up/down 2 steps outside. She says her brother does everything she needs. She says she goes to her home to take a shower/bath because it is a wallk in style. *Precautions: fall precautions Interventions - Exercise/Activities/Manual Therapy Exercises/Activities: Isometric hip add with ball. 1# weight to each wrist during overhead shoulder flexion and horz abd while holding ball, 2s/5reps each. 3# wand for overhead shoulder flexion. Green theraband for resistive hip abd, ham curls, and bilateral horz shoulder abd, all 2s/10reps. 2# to each LE for LAQ and hip flexion. Worked on repetitive sit to stand x5reps with reaching activities. Chest passing of small ball in standing, 3s/5reps. 1 1/2# to each LE and RURAL ELECTRIFICATION ENGINEER for side-stepping and marching. Walking in department and hallway with RW, with focus on making 180 degrees turns. Continues to need constant verbal cues for foot placement and walker position with turns for balance. Patient given assist at gait belt to stabilize balance. Patient stands at railing and slides both hands up on wall overhead and prompts to hold head more erectly 2x5. She performs scap adduction for posture x 8. Marching, heel raises x 10. Patient practices stepping up on 2 steps at the Balance Teaching Specialists using 2 hand rails, then handrail on the R side only to simulate that which she has at her brother's home. 2 reps x 3. Discussed with patient and brother continuing x 1 more session and reassess next week. Total minutes of Exercise: 45 Manual Therapy: NA HOME EXERCISE PROGRAM: pt given written HEP including AP, hip abd/add, HS, LAQ - Charges Timed Code Treatment Minutes: 45 Total Treatment Time: 53 Procedures billed for this date of service:: ex, neuro, gait Assessment: Patient demo good leonor of progressive therex and is able to maintain bal well with beginning steps (2 concecutively) and with increasing gait distance. Patient's brother and friend admit to seeing improvement with Mrs. Maravilla's gait and that she is getting out of chairs better. She is now CGA/SBA x1 for sit to stand transfers and progress made in dynamic by patient only requiring SBA and holding onto railing. Patient Education: Home Safety, Education of Plan of Care Patient demonstrates compliance with HEP?: Yes Short Term Goals Goal #1: pt transfer sup to/from sit CGA, sit to/from stand with verbal cues only Goal to be met by: 07/11/18 Progress towards Goal:: Partially Met Goal #2: pt amb in dept with rwx with CGA with improved posture and ALLIE no LOB Goal to be met by: 07/11/18 Progress towards Goal:: Partially Met Goal #3: pt improve gait speed to 0.3m/s to improve safety with gait Goal to be met by: 07/11/18 Progress towards Goal:: Progressing Goal #4: Improve dyn stand balance as noted by tinetti score of 18/28 Goal to be met by: 07/11/18 Hydraulic Plumber Helper Goals Goal #1: pt/caregiver independent with HEP to maintain functional gains after DC Goal to be met by: 08/01/18 Progress towards goal: Progressing Goal #2: pt amb community distance with rwx with SBA with no LOB Goal to be met by: 08/01/18 Progress towards goal: Partially Met Goal #3: tinetti score >19/28 consistent w decreased fall risk Goal to be met by: 08/01/18 Goal #4: BLE strength improved to 4/5 to allow for increased independence w transfer Goal to be met by: 08/01/18 Plan Dates of Hydraulic Plumber Helper Goals: 08/01/18 Expiration date of current Insurance Approval:: 08/01/18 PLAN: Reassess next visit, then D/c
--- NOTE | 2018-07-22 10:29 | RS.OPPTDC ---
Date of Discharge: 07/17/18 Date of Evaluation: 06/20/18 Number of Visits: 10 Treatment Diagnosis: Difficulty walking and weakness. Current Level of Function: pt gait speed has increased to 0.5meters/sec which is consistent with limited community ambulator whis is improved from 0.25m/s on eval. pt tinetti score improved from 09/20. pt has met 6 out of 8 goals. pt and brother are independent with HEP. Current Complaints/Gains: pt and brother report good improvement with walking. pt states she is doing well with rolling walker and has increased community amb. Denies any falls. Functional Outcome Measure Tinetti: 21 (25%) - G Codes & Severity Modifier G Codes & Modifier: mobility walking and moving around Goal: CJ. mobility walking and moving around DC CJ Source of G Code score: tinetti balance assessment Observation - Observation Posture: Forward Head, Rounded Shoulders, Increased Thoracic Kyphosis, Decreased Lumbar Lordosis Handedness: Right Gait - Gait Pattern General Gait Pattern Observation: Crouched Gait, Decrease Stride Lngth (R), Decrease Stride Lngth (L) Interventions - Exercise/Activities/Manual Therapy Exercises/Activities: n/a Manual Therapy: NA HOME EXERCISE PROGRAM: pt given written HEP including AP, hip abd/add, HS, LAQ - Charges Timed Code Treatment Minutes: n/a Total Treatment Time: n/a Procedures billed for this date of service:: n/a Assessment Assessment: pt has met all STG and LTG 1, 3 progressing toward remaining goals. pt made significant progress with gait speed, safety as well as transfers and balance. Patient Education: Home Exercise Program, Education of Plan of Care Rehab Potential: Good Short Term Goals Goal #1: pt transfer sup to/from sit CGA, sit to/from stand with verbal cues only Goal to be met by: 07/11/18 Progress towards Goal:: Met Goal #2: pt amb in dept with rwx with CGA with improved posture and ALLIE no LOB Goal to be met by: 07/11/18 Progress towards Goal:: Met Goal #3: pt improve gait speed to 0.3m/s to improve safety with gait Goal to be met by: 07/11/18 Progress towards Goal:: Met Goal #4: Improve dyn stand balance as noted by tinetti score of Goal to be met by: 07/11/18 Progress towards Goal:: Met Drying Unit Felting Machine Operator Goals Goal #1: pt/caregiver independent with HEP to maintain functional gains after DC Goal to be met by: 08/01/18 Progress towards goal: Met Goal #2: pt amb community distance with rwx with SBA with no LOB Goal to be met by: 08/01/18 Progress towards goal: Partially Met Goal #3: tinetti score >19/28 consistent w decreased fall risk Goal to be met by: 08/01/18 Progress towards goal: Met Goal #4: BLE strength improved to 4/5 to allow for increased independence w transfer Goal to be met by: 08/01/18 Plan Comments: most goals met feel pt has reached max rehab potential at this time. pt and brother are independent with HEP to continue after DC.
--- NOTE | 2018-07-24 16:17 | RS.OPPTDN ---
Subjective Date of Note: 07/17/18 Visit #: 10 Number of visits approved by Insurance: NA Date of Evaluation: 06/20/18 Payer Source: MEDICARE Treatment Diagnosis: Difficulty walking and weakness. Current Subjective/complaints:: Patient reports doing well with home and community ambulation. States she is working on HEP and denies falls. *Precautions: fall precautions Interventions - Exercise/Activities/Manual Therapy Exercises/Activities: Isometric hip add with ball. 1# weight to each wrist during overhead shoulder flexion and horz abd while holding ball, 2s/5reps each. 3# wand for overhead shoulder flexion. Green theraband for resistive hip abd, ham curls, and bilateral horz shoulder abd, all 2s/10reps. 2# to each LE for LAQ and hip flexion. Worked on repetitive sit to stand x5reps with reaching activities. Chest passing of small ball in standing, 3s/5reps. 1 1/2# to each LE and FOOD SERVICES COORDINATOR for side-stepping and marching. Walking in department and hallway with RW to assess safe functional gait speed. Demos good foot placement and walker position with turns for balance. Scap adduction for posture. Marching, heel raises, and side stepping. Patient practices stepping up and over short steps with FOOD SERVICES COORDINATOR and then with handrail. Total minutes of Exercise: EX 20mins, GT 12mins, NEURO 14mins Manual Therapy: NA HOME EXERCISE PROGRAM: pt given written HEP including AP, hip abd/add, HS, LAQ. Standing at kitchen counter to perform toe-ups, mini-squats, marching, and hip abd. - Charges Timed Code Treatment Minutes: 46mins Total Treatment Time: 46mins Procedures billed for this date of service:: EX, GT, NEURO Assessment: Patient has progressed and benefitted from progressive exercise, balance work, and patient education for safety. She has met 6 of 8 treatment goals and will continue HEP. Patient Education: Home Exercise Program, Home Safety, Activity Modification, Education of Plan of Care Comments: Finalized patient education of safety and HEP. Patient demonstrates compliance with HEP?: Yes Short Term Goals Goal #1: pt transfer sup to/from sit CGA, sit to/from stand with verbal cues only Goal to be met by: 07/11/18 Progress towards Goal:: Met Goal #2: pt amb in dept with rwx with CGA with improved posture and ALLIE no LOB Goal to be met by: 07/11/18 Progress towards Goal:: Met Goal #3: pt improve gait speed to 0.3m/s to improve safety with gait Goal to be met by: 07/11/18 Progress towards Goal:: Met Goal #4: Improve dyn stand balance as noted by tinetti score of Goal to be met by: 07/11/18 Progress towards Goal:: Met Intermediate Goals Goal #1: pt/caregiver independent with HEP to maintain functional gains after DC Goal to be met by: 08/01/18 Progress towards goal: Met Goal #2: pt amb community distance with rwx with SBA with no LOB Goal to be met by: 08/01/18 Progress towards goal: Partially Met Goal #3: tinetti score >19/28 consistent w decreased fall risk Goal to be met by: 08/01/18 Progress towards goal: Met Goal #4: BLE strength improved to 4/5 to allow for increased independence w transfer Goal to be met by: 08/01/18 Plan Dates of Intermediate Goals: 08/01/18 Expiration date of current Insurance Approval:: 08/01/18 PLAN: Discharge with HEP.
== END 2018-07-24 23:59 ==
PROVIDERS: ATTEND Internal Medicine
DX: R26.9 Unspecified abnormalities of gait and mobility (principal); M62.81 Muscle weakness (generalized)

== ENCOUNTER 2019-01-09 09:39 | Outpatient (CLI) | payer OTHER ==
--- NOTE | 2019-01-09 10:48 | CT ---
EXAM: CT ABDOMEN AND PELVIS HISTORY: Lower abdominal/pelvic pain. TECHNIQUE: CT abdomen and pelvis with and without intravenous contrast. Oral contrast was administe red. Images were reconstructed using 5 mm section thickness. Reformations were prepared. 100 ml Vi sipaque 328 FINDINGS: No comparison CT. No focal hepatic lesions. There is a 11 mm cystic mass of the anterior spleen probably a cyst. No o bvious gallbladder pathology. Pancreas and adrenal glands are within limits. There is no hydronephr osis, nephrolithiasis or evidence of ureteral calculus. A few small cystic foci in the left renal co rtex measuring up to 11 mm probably represent cysts. There is moderately severe atherosclerotic dise ase. No gastric distension. An appendix is not seen. There is moderate distal colon diverticulosis. Mod erate fecal retention in the distal rectosigmoid colon. Nonobstructive bowel gas pattern. No ventral hernia. The bones reveal moderately severe degenerative changes of the spine with mild sc oliosis. Lung bases are clear. There is no pneumoperitoneum. IMPRESSION: 1. Moderate diverticulosis of the distal colon without definite evidence of diverticulitis. Slight excess fecal retention rectosigmoid colon. There is no ascites, free air or bowel obstruction. 2. Severe atherosclerotic disease. 3. Small splenic cyst. 4. Renal cysts.
== END 2019-01-09 09:40 | disposition home or self-care (01) ==
LOC: RAD 09:39
PROVIDERS: ATTEND Internal Medicine
DX: R10.9 Unspecified abdominal pain (principal)

== ENCOUNTER 2019-04-25 11:28 | Inpatient (IN) ==
[2019-04-25] MEDS ORDERED: ATROPINE SULFATE PFS IVP PRN (11:55)
[2019-04-25] MEDS ORDERED: VISTARIL INJ IM PRN (11:55)
[2019-04-25] MEDS ORDERED: NITROSTAT SL PRN (11:55)
[2019-04-25] MEDS ORDERED: TYLENOL PO PRN (11:55)
[2019-04-25 12:13] VITALS: BMI 22.5
--- NOTE | 2019-04-25 14:08 | DI ---
EXAM: Chest one view HISTORY: Shortness of breath COMPARISON: 07/11/2018 TECHNIQUE: Single view of the chest was performed FINDINGS/IMPRESSION: Possible trace left pleural effusion. No definite airspace disease.. No pneumothorax or focal consol idation. Stable cardiomediastinal silhouette. Scattered calcified granulomas throughout the right aden ng. There are no acute abnormalities of the bones.
--- NOTE | 2019-04-25 15:31 | DI ---
EXAM: Two views left hip HISTORY: Hip pain, weakness COMPARISON: None. FINDINGS/IMPRESSION: Alignment: Anatomic. Bones: No fracture or aggressive osseous lesion. Osteopenia. Joint spaces: Mild degenerative change of the hip.. Soft tissues: No acute abnormality.
--- NOTE | 2019-04-25 15:31 | DI ---
EXAM: Two views right hip HISTORY: Hip pain and weakness COMPARISON: None. FINDINGS/IMPRESSION: Alignment: Anatomic. Bones: No fracture or aggressive osseous lesion. Old right proximal femoral diaphyseal fracture. Os teopenia. Joint spaces: Mild degenerative change.. Soft tissues: No acute finding..
[2019-04-25] MEDS ORDERED: NON-FORMULARY MEDICATION (Metformin Hcl [Glucophage] 1,000 MG) PO SCH (17:30)
[2019-04-25] MEDS: CALMOSEPTINE OINTMENT TP SCH ×2 (18:06→20:44)
[2019-04-25] MEDS ORDERED: LASIX TAB PO PRN (18:20)
[2019-04-25] MEDS: GLUCOPHAGE PO SCH (18:27)
[2019-04-25] MEDS: COREG PO SCH (18:27)
[2019-04-25] MEDS: FOLIC ACID PO SCH (20:42)
[2019-04-25] MEDS: CARDIZEM PO SCH (20:43)
[2019-04-25] MEDS: FERROUS SULFATE PO SCH (20:43)
[2019-04-25] MEDS: PLAVIX PO SCH (20:43)
[2019-04-25] MEDS: BALANCED B-100 PO SCH (20:43)
[2019-04-25] MEDS: ZOCOR PO SCH (20:43)
[2019-04-25] MEDS: NAMENDA PO SCH (20:43)
[2019-04-25] MEDS ORDERED: CARVEDILOL 12.5 MG PO SCH (21:00)
[2019-04-25] MEDS ORDERED: CALMOSEPTINE OINTMENT TP SCH (21:00)
[2019-04-26] MEDS: CALMOSEPTINE OINTMENT TP SCH ×2 (08:57→21:46)
[2019-04-26] MEDS: CARDIZEM PO SCH ×2 (08:58→20:59)
[2019-04-26] MEDS: ASPIRIN EC PO SCH (08:58)
[2019-04-26] MEDS: BALANCED B-100 PO SCH ×2 (08:58→20:59)
[2019-04-26] MEDS: FOLIC ACID PO SCH ×2 (08:58→21:00)
[2019-04-26] MEDS: FERROUS SULFATE PO SCH ×2 (08:59→20:58)
[2019-04-26] MEDS: COREG PO SCH ×2 (08:59→16:44)
[2019-04-26] MEDS: GLUCOPHAGE PO SCH ×2 (08:59→16:44)
[2019-04-26] MEDS ORDERED: COZAAR PO SCH (09:00)
[2019-04-26] MEDS ORDERED: NON-FORMULARY MEDICATION (Losartan Potassium [Cozaar] 50 MG) PO SCH (09:00)
[2019-04-26] MEDS: BACTRIM DS 800/160 MG PO SCH ×2 (12:07→20:59)
[2019-04-26] MEDS: PLAVIX PO SCH (20:59)
[2019-04-26] MEDS: ZOCOR PO SCH (21:00)
[2019-04-26] MEDS ORDERED: BACTRIM DS 800/160 MG PO SCH (21:00)
[2019-04-26] MEDS: NAMENDA PO SCH (21:00)
[2019-04-27] MEDS: BACTRIM DS 800/160 MG PO SCH (08:09)
[2019-04-27] MEDS: BALANCED B-100 PO SCH ×2 (08:09→20:51)
[2019-04-27] MEDS: GLUCOPHAGE PO SCH ×2 (08:10→16:35)
[2019-04-27] MEDS: ASPIRIN EC PO SCH (08:10)
[2019-04-27] MEDS: FOLIC ACID PO SCH ×2 (08:10→20:52)
[2019-04-27] MEDS: COREG PO SCH ×2 (08:10→16:35)
[2019-04-27] MEDS: CARDIZEM PO SCH ×2 (08:10→20:52)
[2019-04-27] MEDS: COZAAR PO SCH (08:10)
[2019-04-27] MEDS: FERROUS SULFATE PO SCH ×2 (08:10→20:51)
[2019-04-27] MEDS: CALMOSEPTINE OINTMENT TP SCH ×2 (08:11→20:53)
[2019-04-27] MEDS: CIPRO PO SCH ×2 (11:57→20:52)
[2019-04-27] MEDS: PLAVIX PO SCH (20:51)
[2019-04-27] MEDS: NAMENDA PO SCH (20:52)
[2019-04-27] MEDS: ZOCOR PO SCH (20:52)
[2019-04-28] MEDS: CIPRO PO SCH ×2 (05:05→20:15)
[2019-04-28] MEDS: ASPIRIN EC PO SCH (08:44)
[2019-04-28] MEDS: FERROUS SULFATE PO SCH ×2 (08:44→20:15)
[2019-04-28] MEDS: COZAAR PO SCH (08:44)
[2019-04-28] MEDS: FOLIC ACID PO SCH ×2 (08:44→20:16)
[2019-04-28] MEDS: CARDIZEM PO SCH ×2 (08:44→20:15)
[2019-04-28] MEDS: BALANCED B-100 PO SCH ×2 (08:45→20:15)
--- NOTE | 2019-04-28 08:49 | PCM.PROG ---
Attending Provider: ATTENDING PROVIDER: Dr. MONICA KUHN DATE OF SERVICE: 04/28/19 SUBJECTIVE: This 88 year old WHITE/ F was hospitalized 04/25/19 with generalized weakness and recurrent falls. The patient has cardiovascular disease and peripheral arterial disease. The patient is a DNR. The patient has more or less improved. The patient will be admitted to swing bed. REVIEW OF SYSTEMS: CONSTITUTIONAL: No night sweats. No fatigue, malaise, lethargy. No fever or chills. Weakness. HEENT: Eyes: No visual changes. No eye pain. No eye discharge. ENT: No runny nose. No epistaxis. No sinus pain. No odynophagia. No congestion. RESPIRATORY: No cough, no congestion. No hemoptysis. Shortness of breath with exertion. CARDIOVASCULAR: No angina symptoms. No CHF symptoms. No atypical chest pain for CAD. No palpitations. No orthopnea.. GASTROINTESTINAL: No abdominal pain. No nausea or vomiting. No diarrhea or constipation. No hematemesis. No hematochezia. GENITOURINARY: No urgency. No frequency. No dysuria. No hematuria. No obstructive symptoms. No discharge. No pain. No significant abnormal bleeding. MUSCULOSKELETAL: No musculoskeletal pain; no joint swelling. NEUROLOGICAL: Awake, alert, oriented to time, place and person. No headache. No neck pain. No syncope. No seizures. No dizziness. PSYCHIATRIC: Not anxious. No depression. No suicidal thoughts. No homicidal thoughts. SKIN: No rash. No lesions. No wounds. ENDOCRINE: No unexplained weight loss. No weight gain. HEMATOLOGIC/LYMPHATIC: No anemia. No purpura. No petechiae. No prolonged or excessive bleeding. No palpable lymph nodes. PHYSICAL EXAMINATION: GENERAL: The patient is awake, alert and oriented, lying in bed in no distress. VITAL SIGNS: Temperature 98.0 F, Pulse 66, Respiratory Rate 16, BP 152/59, Pulse Ox 94% HEENT: Head normocephalic, atraumatic. Eyes: Extraocular muscles are intact. Pupils are equal, round and reactive to light and accommodation. Ears: No lesions. Nose appeared normal. Throat: No exudate or erythema. NECK: Supple. No JVD, no carotid bruit. No lymphadenopathy or thyromegaly. LUNGS: Clear to auscultation. Percussion note normal. Chest symmetrical. HEART: S1, S2, no S3. No murmurs. No cyanosis or clubbing. No ascites. Pulses: Dorsalis pedis and posterior tibial pulses +1 to +2 both sides. ABDOMEN: Soft. Non-tender. Bowel sounds active. No CVA tenderness. No mass felt. EXTREMITIES: No edema. Full range of motion of all extremities, equal. NEUROLOGIC: No focal deficit. Cranial nerves II through XII are grossly intact. No headache, no double vision or headache. SKIN: Warm and dry. Intact. Turgor-normal. LYMPHATIC: No palpable lymph nodes/no lymphedema. MUSCULOSKELETAL: Normal joints with no swelling. Muscle tone is normal. LAB REVIEW: 04/28/19 04:05 04/28/19 04:05 04/28/19 04:05: Sodium 139.1, Potassium 4.53, Chloride 101.8, Carbon Dioxide 29.1, Anion Gap 12.73, BUN 20.8 H, Creatinine 1.07, Estimated GFR (MDRD) 49.00, BUN/Creatinine Ratio 19.43, Glucose 107.4 H, Calcium 9.78, Total Bilirubin 0.69 , AST 24.9, ALT 11.1, Alkaline Phosphatase 101.3, Total Protein 6.84, Albumin 3.67, Globulin 3.17, Albumin/Globulin Ratio 1.15 04/28/19 04:05: WBC 6.95, RBC 4.01 L, Hgb 10.5 L, Hct 34.2 L, MCV 85.3, MCH 26.2 L, MCHC 30.7 L, RDW Coeff of Ray 15.6 H, Plt Count 207, Immature Gran % ( Auto) 0.4, Neut % (Auto) 55.4, Lymph % (Auto) 35.3, [place] % (Auto) 7.2, Eos % ( Auto) 1.4, Baso % (Auto) 0.3, Immature Gran # (Auto) 0.0, Neut # (Auto) 3.9, Lymph # (Auto) 2.5, [place] # (Auto) 0.5, Eos # (Auto) 0.1, Baso # (Auto) 0.0 ASSESSMENT: Please see below. 1. Frequent fall 2. Chronic lung disease 3. Generalized weakness from aging process and multiple medical condition. PLAN: 1. Admit to swing bed 2. Physical therapy 3. Monitor her labs. Plan and coordination of the patient's care discussed in the presence of Executive Meeting Manager and nurse. SCRIBED BY: TC VERA Forensics Analyst scribed while in presence of service performed by Dr. MONICA KUHN on 04/28/19 ([id number])
[2019-04-28] MEDS: GLUCOPHAGE PO SCH ×2 (08:50→17:03)
[2019-04-28] MEDS: COREG PO SCH ×2 (08:50→17:03)
[2019-04-28] MEDS: CALMOSEPTINE OINTMENT TP SCH ×2 (08:50→20:16)
--- NOTE | 2019-04-28 14:42 | PN ---
DATE OF SERVICE: 04/26/19 SUBJECTIVE: 88-year-old white female hospitalized with generalized weakness, recurrent falls , anemia. Her condition has improved. She is feeling better. Kidney functions are better. BP is in the range of 160 to 170, will increase Losartan. REVIEW OF SYSTEMS: CONSTITUTIONAL: Weakness. No night sweats. No fatigue, malaise, lethargy. No fever or chills. HEENT: Eyes: No visual changes. No eye pain. No eye discharge. ENT: No runny nose. No epistaxis. No sinus pain. No sore throat. No odynophagia. No congestion. RESPIRATORY: Mild shortness of breath. No cough, no congestion. No hemoptysis. CARDIOVASCULAR: No angina symptoms. No CHF symptoms. No atypical chest pain for CAD. No palpitations. No PND. No orthopnea. GASTROINTESTINAL: Appetite has improved some. No abdominal pain. No nausea or vomiting. No diarrhea or constipation. No hematemesis. No hematochezia. GENITOURINARY: No urgency. No frequency. No dysuria. No hematuria. No obstructive symptoms. No discharge. No pain. No significant abnormal bleeding. MUSCULOSKELETAL: No musculoskeletal pain; no joint swelling. NEUROLOGICAL: No headache. No neck pain. No syncope. No seizures. No dizziness. PSYCHIATRIC: Not anxious. No depression. No suicidal thoughts. No homicidal thoughts. SKIN: No rash. No lesions. No wounds. ENDOCRINE: No unexplained weight loss. No weight gain. HEMATOLOGIC/LYMPHATIC: No anemia. No purpura. No petechiae. No prolonged or excessive bleeding. No palpable lymph nodes. PHYSICAL EXAMINATION: VITAL SIGNS: Temperature 98, pulse 69, respiratory rate 18, BP 168/60. Pulse ox 94% on 2L. HEENT: Head normocephalic, atraumatic. Eyes: Extraocular muscles are intact. Pupils are equal, round and reactive to light and accommodation. Ears: No lesions. Nose appeared normal. Throat: No exudate or erythema. NECK: Supple. JVP 1 cm. no carotid bruit. No lymphadenopathy or thyromegaly. LUNGS: Decreased breath sounds but clear to auscultation. Percussion note normal. Chest symmetrical. HEART: S1, S2, no S3. No murmurs. No cyanosis or clubbing. No ascites. Pulses: Dorsalis pedis and posterior tibial pulses +1 to +2 bilaterally. ABDOMEN: Soft. Nontender. Bowel sounds active. No CVA tenderness. No mass felt. EXTREMITIES: 1+ edema. Full range of motion of all extremities, equal. NEUROLOGIC: No focal deficit. Cranial nerves II through XII are grossly intact. No headache, no double vision or headache. SKIN: Not dry. Intact. Turgor - normal. LYMPHATIC: No palpable lymph nodes/no lymphedema. MUSCULOSKELETAL: Normal joints with no swelling. Muscle tone is normal. LABS: Hemoglobin 10.2, hematocrit 32, WBC 1,100, normal differential. Creatinine 0.8, BUN 24, potassium 4.1. ASSESSMENT: 1. Hypertension controlled. 2. Weakness. 3. Recurrent falls secondary to patient's multiple medical problems like peripheral arterial disease, chronic lung disease, CHF, coronary artery disease , diabetes mellitus. PLAN: 1. The patient had an abnormal UA, will start the patient on Septra twice a day. Cultures pending. 2. Losartan has already been increased to 100 mg daily for systolic blood pressure 140 to 150. Condition otherwise is stable. TIME SPENT: More than 30 minutes. Plan and coordination of the patient's care discussed in the presence of nurse. SUZY
[2019-04-28] MEDS: NAMENDA PO SCH (20:14)
[2019-04-28] MEDS: PLAVIX PO SCH (20:15)
[2019-04-28] MEDS: ZOCOR PO SCH (20:16)
[2019-04-28 22:53] VITALS: TEMP 98.1
[2019-04-29] MEDS: CIPRO PO SCH (05:25)
--- NOTE | 2019-04-29 07:57 | PCM.PROG ---
Attending Provider: ATTENDING PROVIDER: Dr. MONICA KUHN DATE OF SERVICE: 04/29/19 SUBJECTIVE: This 88 year old WHITE/ F was hospitalized 04/25/19 with generalized weakness and recurrent falls. The patient is going to be admitted to swing bed for physical and occupational therapy. The patient's condition is stable with no symptoms of CHF or coronary artery disease. She is being treated for for E- Coli UTI with Cipro. REVIEW OF SYSTEMS: CONSTITUTIONAL: No night sweats. No fatigue, malaise, lethargy. No fever or chills. Weakness. HEENT: Eyes: No visual changes. No eye pain. No eye discharge. ENT: No runny nose. No epistaxis. No sinus pain. No odynophagia. No congestion. RESPIRATORY: No cough, no congestion. No hemoptysis. Shortness of breath with exertion. CARDIOVASCULAR: No angina symptoms. No CHF symptoms. No atypical chest pain for CAD. No palpitations. No orthopnea.. GASTROINTESTINAL: No abdominal pain. No nausea or vomiting. No diarrhea or constipation. No hematemesis. No hematochezia. GENITOURINARY: No urgency. No frequency. No dysuria. No hematuria. No obstructive symptoms. No discharge. No pain. No significant abnormal bleeding. MUSCULOSKELETAL: No musculoskeletal pain; no joint swelling. NEUROLOGICAL: Awake, alert, oriented to time, place and person. No headache. No neck pain. No syncope. No seizures. No dizziness. PSYCHIATRIC: Not anxious. No depression. No suicidal thoughts. No homicidal thoughts. SKIN: No rash. No lesions. No wounds. ENDOCRINE: No unexplained weight loss. No weight gain. HEMATOLOGIC/LYMPHATIC: No anemia. No purpura. No petechiae. No prolonged or excessive bleeding. No palpable lymph nodes. PHYSICAL EXAMINATION: GENERAL: The patient is awake, alert and oriented, lying in bed in no distress. VITAL SIGNS: Temperature 98.1 F, Pulse 76, Respiratory Rate 16, BP 174/69, Pulse Ox 97% HEENT: Head normocephalic, atraumatic. Eyes: Extraocular muscles are intact. Pupils are equal, round and reactive to light and accommodation. Ears: No lesions. Nose appeared normal. Throat: No exudate or erythema. NECK: Supple. No JVD, no carotid bruit. No lymphadenopathy or thyromegaly. LUNGS: Clear to auscultation. Percussion note normal. Chest symmetrical. HEART: S1, S2, no S3. No murmurs. No cyanosis or clubbing. No ascites. Pulses: Dorsalis pedis and posterior tibial pulses +1 to +2 both sides. ABDOMEN: Soft. Non-tender. Bowel sounds active. No CVA tenderness. No mass felt. EXTREMITIES: No edema. Full range of motion of all extremities, equal. NEUROLOGIC: No focal deficit. Cranial nerves II through XII are grossly intact. No headache, no double vision or headache. SKIN: Warm and dry. Intact. Turgor-normal. LYMPHATIC: No palpable lymph nodes/no lymphedema. MUSCULOSKELETAL: Normal joints with no swelling. Muscle tone is normal. LAB REVIEW: 04/29/19 04:40 04/29/19 04:40 04/29/19 04:40: Sodium 138.2, Potassium 4.90, Chloride 101.3, Carbon Dioxide 28.9, Anion Gap 12.90, BUN 25.4 H, Creatinine 1.26, Estimated GFR (MDRD) 40.00, BUN/Creatinine Ratio 20.15, Glucose 111.3 H, Calcium 9.94, Total Bilirubin 0.40 , AST 19.5, ALT 11.9, Alkaline Phosphatase 94.9, Total Protein 6.23 L, Albumin 3.30 L, Globulin 2.93, Albumin/Globulin Ratio 1.12 04/29/19 04:40: WBC 6.68, RBC 3.44 L, Hgb 9.2 L, Hct 29.8 L, MCV 86.6, MCH 26.7 L, MCHC 30.9 L, RDW Coeff of Ray 15.9 H, Plt Count 178, Immature Gran % (Auto) 0.3, Neut % (Auto) 43.4, Lymph % (Auto) 46.3, [place] % (Auto) 8.2, Eos % (Auto) 1.5, Baso % (Auto) 0.3, Immature Gran # (Auto) 0.0, Neut # (Auto) 2.9, Lymph # ( Auto) 3.1, [place] # (Auto) 0.6, Eos # (Auto) 0.1, Baso # (Auto) 0.0 ASSESSMENT: Please see below. 1. CHF controlled. 2. Chronic lung disease 3. Coronary artery disease 4. Anemia 5. UTI 6. Chronic kidney disease. 7. Recurrent falls with increase risk of falls more than 13. PLAN: 1. Discharge to swing 2. Start PT and OT 3. Cardizem 60mg twice a day 4. Cozaar 100mg daily Plan and coordination of the patient's care discussed in the presence of Spring Clipper and nurse. CONDITION: Stable SCRIBED BY: Leonard HASSAN scribed while in presence of service performed by Dr. MONICA KUHN on 04/29/19 ([id number])
[2019-04-29 08:23] VITALS: BP 166/78
[2019-04-29] MEDS: GLUCOPHAGE PO SCH (08:43)
[2019-04-29] MEDS: BALANCED B-100 PO SCH (08:44)
[2019-04-29] MEDS: FOLIC ACID PO SCH (08:44)
[2019-04-29] MEDS: ASPIRIN EC PO SCH (08:44)
[2019-04-29] MEDS: COZAAR PO SCH (08:45)
[2019-04-29] MEDS: COREG PO SCH (08:45)
[2019-04-29] MEDS: FERROUS SULFATE PO SCH (08:45)
[2019-04-29] MEDS: CALMOSEPTINE OINTMENT TP SCH (08:46)
[2019-04-29] MEDS ORDERED: CARDIZEM PO SCH ×2 (09:00)
--- NOTE | 2019-04-29 09:55 | CM.DICTOOL ---
ADMISSION: 04/25/19 11:28 DISCHARGE: APRIL 29, 2019 DATE OF SERVICE: 04/29/19 FINAL DIAGNOSIS GENERALIZED WEAKNESS UNSTEADY GAIT RECURRENT FALLS ANEMIA URINARY TRACT INFECTION, E-COLI COPD, OXYGEN PRN AT HOME CHF HYPERTENSION/LVH HISTORY OF ATRIAL FIBRILLATION DIABETES MELLITUS, TYPE 2 (A1C 6.23 DECEMBER 2018) CHRONIC KIDNEY DISEASE, STAGE 2 DYSLIPIDEMIA B12 DEFIECIENCY DEMENTIA CAROTID STENOSIS; RIGHT 50-69% STENOSIS (11/2016) OSTEOPENIA (HIPS) DJD SPINE PARTIAL HYSTERECTOMY LAST VITALS Temp Pulse Resp BP Pulse Ox 98.1 F 82 16 166/78 H 96 04/29/19 04:46 04/29/19 08:00 04/29/19 08:00 04/29/19 08:00 04/29/19 08:00 TAKE THESE MEDICATIONS AT HOME Acetaminophen (Tylenol) 650 mg PO Q4H PRN PRN Reason: Headache Last Admin: 04/26/19 08:59 Dose: 650 mg Aspirin (Aspirin Ec) 81 mg PO DAILYWM [facility] Last Admin: 04/29/19 08:44 Dose: 81 mg Calamine/Phenol (Calmoseptine Ointment) 1 applic TP BID [facility] Last Admin: 04/29/19 08:46 Dose: 1 applic Carvedilol (Coreg) 12.5 mg PO BIDWM [facility] Last Admin: 04/29/19 08:45 Dose: 12.5 mg Ciprofloxacin (Cipro) 500 mg PO BIDCIPRO [facility] Stop: 04/30/19 11:29 Last Admin: 04/29/19 05:25 Dose: 500 mg Clopidogrel Bisulfate (Plavix) 75 mg PO BEDTIME [facility] Last Admin: 04/28/19 20:15 Dose: 75 mg Diltiazem HCl (Cardizem) 60 mg PO BID [facility] Last Admin: 04/29/19 08:46 Dose: 60 mg Ferrous Sulfate (Ferrous Sulfate) 324 mg PO BID [facility] Last Admin: 04/29/19 08:45 Dose: 324 mg Folic Acid (Folic Acid) 0.5 mg PO BID [facility] Last Admin: 04/29/19 08:44 Dose: 0.5 mg Furosemide (Lasix Tab) 20 mg PO QDAC PRN PRN Reason: Blood Pressure Last Admin: 04/29/19 05:25 Dose: 20 mg Losartan Potassium (Cozaar) 100 mg PO DAILY [facility] Last Admin: 04/29/19 08:45 Dose: 100 mg Memantine (Namenda) 10 mg PO BEDTIME [facility] Last Admin: 04/28/19 20:14 Dose: 10 mg Metformin HCl (Glucophage) 1,000 mg PO BIDWM [facility] Last Admin: 04/29/19 08:43 Dose: 1,000 mg Simvastatin (Zocor) 40 mg PO BEDTIME [facility] Last Admin: 04/28/19 20:16 Dose: 40 mg Vitamin B Complex (Balanced B-100) 1 tab PO BID [facility] Last Admin: 04/29/19 08:44 Dose: 1 tab ALLERGIES No Known Allergies Allergy (Verified 01/22/18 15:57) Discontinued Medications Calamine/Phenol (Calmoseptine Ointment) 1 applic TP BID [facility] Diltiazem HCl (Cardizem) 30 mg PO BID [facility] Last Admin: 04/28/19 20:15 Dose: 30 mg Losartan Potassium (Cozaar) 50 mg PO DAILY [facility] Last Admin: 04/26/19 08:59 Dose: 50 mg Trimethoprim/Sulfamethoxazole (Bactrim Ds 800/160 Mg) 2 tab PO Q12HR [facility] Stop: 04/29/19 20:59 Trimethoprim/Sulfamethoxazole (Bactrim Ds 800/160 Mg) 0.5 tab PO Q12HR [facility] Stop: 04/29/19 10:44 Last Admin: 04/27/19 08:09 Dose: 0.5 tab NEW PRESCRIPTIONS: CIPRO 500 MG BID FOR 7 DAYS TOTAL (STARTED 04-27-2019) CARDIZEM 60 MG BID (DOSE INCREASED) COZAAR 100 MG DAILY (DOSE INCREASED) SMOKING: NOT APPLICABLE DISEASE SPECIFIC EDUCATION: NUTRITION/HYDRATION ACTIVITY MEDICATION CHANGES LAB REVIEW: 04/29/19 04:40 04/29/19 04:40 04/29/19 04:40: Sodium 138.2, Potassium 4.90, Chloride 101.3, Carbon Dioxide 28.9, Anion Gap 12.90, BUN 25.4 H, Creatinine 1.26, Estimated GFR (MDRD) 40.00, BUN/Creatinine Ratio 20.15, Glucose 111.3 H, Calcium 9.94, Total Bilirubin 0.40 , AST 19.5, ALT 11.9, Alkaline Phosphatase 94.9, Total Protein 6.23 L, Albumin 3.30 L, Globulin 2.93, Albumin/Globulin Ratio 1.12 04/29/19 04:40: WBC 6.68, RBC 3.44 L, Hgb 9.2 L, Hct 29.8 L, MCV 86.6, MCH 26.7 L, MCHC 30.9 L, RDW Coeff of Ray 15.9 H, Plt Count 178, Immature Gran % (Auto) 0.3, Neut % (Auto) 43.4, Lymph % (Auto) 46.3, [place] % (Auto) 8.2, Eos % (Auto) 1.5, Baso % (Auto) 0.3, Immature Gran # (Auto) 0.0, Neut # (Auto) 2.9, Lymph # ( Auto) 3.1, [place] # (Auto) 0.6, Eos # (Auto) 0.1, Baso # (Auto) 0.0 PLAN: DISCHARGE: TO TRANSITIONAL CARE FOR PHYSICAL AND OCCUPATIONAL THERAPY DIET: SOFT DIETITIAN TO CONSULT FOR OPTIMAL NUTRITIONAL INTAKE ACTIVITY: UP TO CHAIR TOLERATED MAY AMBULATE TO THE BATHROOM WITH STAFF ASSISTANCE AND USE OF GAIT BELT AND ROLLING WALKER NASAL OXYGEN AT 2 LITERS NEEDED VITAL SIGNS EVERY 12 HOURS INCONTINENT CARE PRN DECUBITUS PRECAUTIONS PRN CBC, CMP EVERY 3 DAYS WEIGH EVERY 3 DAYS CODE STATUS: DNR MS. VOSS IS ALERT AND ORIENTED X 3. SHE IS PLEASANT AND COOPERATIVE. SHE IS AGREEABLE TO ADMISSION TO THE SWING BED PROGRAM FOR PURPOSE OF PHYSICAL AND OCCUPATIONAL THERAPY. SHE REPORTS SHE LIVES AT HOME WITH HER BROTHER AND HE PROVIDES ASSISTANCE, BUT SHE WOULD LIKE TO BE MORE INDEPENDENT. SHE UTILIZES A WALKER AT HOME FOR ASSISTANCE WITH MOBILITY. SHE FEEDS HERSELF AND DISPLAYS A GOOD APPETITE AT 50-100%. SHE IS CONTINENT OF BOWEL, BUT HAS INCONTINENCE AND DRIBBLING WITH URINATION. SKIN IS INTACT, BUT REDNESS IS NOTED TO THE BUTTOCKS AND COCCYX. MONICA KUHN MD
--- NOTE | 2019-04-29 09:58 | PN ---
DATE OF SERVICE: 04/27/19 SUBJECTIVE: The patient is an 88-year-old white female hospitalized with generalized weakness with falls. The patient's condition seems to be improving. She is feeling better. Blood pressure systolic this morning was 160. The dose of Cozaar has been raised to 100. Will monitor the blood pressure. Cardiovascular status seems to be stable. PHYSICAL EXAMINATION: GENERAL: The patient is oriented to time, place and person. VITAL SIGNS: Temperature 97.9, pulse 65, respiratory rate 18, blood pressure 160 /70, pulse 94%. HEENT: Head normocephalic, atraumatic. Eyes: Extraocular muscles are intact. Pupils are equal, round and reactive to light and accommodation. Ears: No lesions. Nose appeared normal. Throat: No exudate or erythema. NECK: Supple. No JVD, no carotid bruit. No lymphadenopathy or thyromegaly. LUNGS: Decreased breath sounds but clear to auscultation. Percussion note normal. Chest symmetrical. HEART: S1, S2, no S3. No murmurs. No cyanosis or clubbing. No ascites. Pulses: Dorsalis pedis and posterior tibial pulses +1 to +2 bilaterally. ABDOMEN: Soft. Nontender. Bowel sounds active. No CVA tenderness. No mass felt. EXTREMITIES: No edema. Full range of motion of all extremities, equal. NEUROLOGIC: No focal deficit. Cranial nerves II through XII are grossly intact. No headache, no double vision or headache. SKIN: Not dry. Intact. Turgor - normal. LYMPHATIC: No palpable lymph nodes/no lymphedema. MUSCULOSKELETAL: Normal joints with no swelling. Muscle tone is normal. ASSESSMENT: 1. ANEMIA STABLE. 2. WEAKNESS STABLE WITH NO EVIDENCE OF CHF AT THE PRESENT TIME OR CORONARY INSUFFICIENCY. 3. PERIPHERAL VASCULAR DISEASE. 4. CHRONIC LUNG DISEASE. PLAN: 1. The patient will need physical therapy for strenghtening of her leg muscles and ambulation. TIME SPENT: More than 30 minutes. Plan and coordination of the patient's care discussed in the presence of nurse. SUZY
--- NOTE | 2019-05-01 10:48 | ECHO2D ---
Date of Exam: 04/28/19 Ordering Physician: DR. MONICA KUHN Room #: 115 Reason for Echo: AFIB, HTN, DM2, CHF M-Mode Normal Adult Results LV Dimensions Normal Adult Results AoV Opening excursions >1.6 >1.6 LVEDD-base- 3.5-5.8 4.2 Ao root dimensions 2.0-3.7 3.0 LVESD-base- 3.1-4.6 L. Atrium dimensions 1.9-3.8 3.6 Post. Wall thickness 0.8-1.1 1.0 IV septum (thickness) 0.7-1.2 1.0 Post. Wall excursion 0.72-1.3 NORMAL Septal motion NORMAL Systolic motion R. Ventricular cavity 1.5-2.0 3.2 LVEF 60% 54% Paradoxical septal wall motion NORMAL 2-D : 2-D M Mode Echocardiogram was performed using apical four chamber and left parasternal long and short axis views. Mitral, tricuspid and aortic valves appear to be normal. Contractility of the left ventricle seems to be normal, so is the cavity size. Left atrial cavity size and aortic root appear to be normal. There is no pericardial effusion. There is no thrombus noted in the left ventricular or left aortic cavity. No mitral valve prolapse noted. M-MODE: MV: NORMAL AV: NORMAL TV: NORMAL PV: CHAMBER SIZE: NORMAL WALL MOTION: NORMAL PERICARDIUM: NORMAL INTERPRETATION: 1. NORMAL 2 "D" "M" MODE ECHO [facility]
--- NOTE | 2019-05-01 13:49 | DS ---
DATE OF SERVICE: 04/29/19 FINAL DIAGNOSIS: 1. GENERALIZED WEAKNESS 2. UNSTEADY GAIT 3. RECURRENT FALLS 4. ANEMIA 5. URINARY TRACT INFECTION, E-COLI 6. COPD, OXYGEN PRN AT HOME 7. CHF 8. HYPERTENSION/LVH 9. HISTORY OF ATRIAL FIBRILLATION 10. DIABETES MELLITUS, TYPE 2 (A1C 6.23 DECEMBER 2018) 11. CHRONIC KIDNEY DISEASE, STAGE 2 12. DYSLIPIDEMIA 13. B12 DEFICIENCY 14. DEMENTIA 15. CAROTID STENOSIS; RIGHT 50-69% STENOSIS (11/2016) 16. 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 PARTIAL HYSTERECTOMY LAST VITALS Temp Pulse Resp BP Pulse Ox 98.1 F 82 16 166/78 H 96 04/29/19 04:46 04/29/19 08:00 04/29/19 08:00 04/29/19 08:00 03/12 08:00 DISCHARGE INSTRUCTIONS: 1. DISCHARGE: TO TRANSITIONAL CARE FOR PHYSICAL AND OCCUPATIONAL THERAPY 2. NASAL OXYGEN AT 2 LITERS NEEDED 3. VITAL SIGNS EVERY 12 HOURS 4. INCONTINENT CARE PRN 5. DECUBITUS PRECAUTIONS PRN 6. CBC, CMP EVERY 3 DAYS 7. WEIGH EVERY 3 DAYS MEDICATIONS AT DISCHARGE: Acetaminophen (Tylenol) 650 mg PO Q4H PRN PRN Reason: Headache Last Admin: 04/26/19 08:59 Dose: 650 mg Aspirin (Aspirin Ec) 81 mg PO DAILYWM [facility] Last Admin: 04/29/19 08:44 Dose: 81 mg Calamine/Phenol (Calmoseptine Ointment) 1 applic TP BID [facility] Last Admin: 04/29/19 08:46 Dose: 1 applic Carvedilol (Coreg) 12.5 mg PO BIDWM [facility] Last Admin: 04/29/19 08:45 Dose: 12.5 mg Ciprofloxacin (Cipro) 500 mg PO BIDCIPRO [facility] Stop: 04/30/19 11:29 Last Admin: 04/29/19 05:25 Dose: 500 mg Clopidogrel Bisulfate (Plavix) 75 mg PO BEDTIME [facility] Last Admin: 04/28/19 20:15 Dose: 75 mg Diltiazem HCl (Cardizem) 60 mg PO BID [facility] Last Admin: 04/29/19 08:46 Dose: 60 mg Ferrous Sulfate (Ferrous Sulfate) 324 mg PO BID [facility] Last Admin: 04/29/19 08:45 Dose: 324 mg Folic Acid (Folic Acid) 0.5 mg PO BID [facility] Last Admin: 04/29/19 08:44 Dose: 0.5 mg Furosemide (Lasix Tab) 20 mg PO QDAC PRN PRN Reason: Blood Pressure Last Admin: 04/29/19 05:25 Dose: 20 mg Losartan Potassium (Cozaar) 100 mg PO DAILY [facility] Last Admin: 04/29/19 08:45 Dose: 100 mg Memantine (Namenda) 10 mg PO BEDTIME [facility] Last Admin: 04/28/19 20:14 Dose: 10 mg Metformin HCl (Glucophage) 1,000 mg PO BIDWM [facility] Last Admin: 04/29/19 08:43 Dose: 1,000 mg Simvastatin (Zocor) 40 mg PO BEDTIME [facility] Last Admin: 04/28/19 20:16 Dose: 40 mg Vitamin B Complex (Balanced B-100) 1 tab PO BID [facility] Last Admin: 04/29/19 08:44 Dose: 1 tab NEW PRESCRIPTIONS: CIPRO 500 MG BID FOR 7 DAYS TOTAL (STARTED 04-27-2019) CARDIZEM 60 MG BID (DOSE INCREASED) COZAAR 100 MG DAILY (DOSE INCREASED) DISCONTINUED MEDICATIONS: Calamine/Phenol (Calmoseptine Ointment) 1 applic TP BID [facility] Diltiazem HCl (Cardizem) 30 mg PO BID [facility] Last Admin: 04/28/19 20:15 Dose: 30 mg Losartan Potassium (Cozaar) 50 mg PO DAILY [facility] Last Admin: 04/26/19 08:59 Dose: 50 mg Trimethoprim/Sulfamethoxazole (Bactrim Ds 800/160 Mg) 2 tab PO Q12HR [facility] Stop: 04/29/19 20:59 Trimethoprim/Sulfamethoxazole (Bactrim Ds 800/160 Mg) 0.5 tab PO Q12HR [facility] Stop: 04/29/19 10:44 Last Admin: 04/27/19 08:09 Dose: 0.5 tab DIET INSTRUCTIONS: SOFT DIETITIAN TO CONSULT FOR OPTIMAL NUTRITIONAL INTAKE ACTIVITY: UP TO CHAIR TOLERATED MAY AMBULATE TO THE BATHROOM WITH STAFF ASSISTANCE AND USE OF GAIT BELT AND ROLLING WALKER SMOKING: NOT APPLICABLE DISEASE SPECIFIC EDUCATION: NUTRITION/HYDRATION ACTIVITY MEDICATION CHANGES HOSPITAL COURSE: 88-year-old white female hospitalized with frequent falls, weakness, deterioration of overall status. The patient during the stay in the hospital was monitored. She had E. coli and urinary tract infection that could have been likely cause of her getting weak. In any case, the patient was treated with Cipro twice a day. During the stay in the hospital she was continued on all the medications as before. It is very likely that the patient is not taking her medication on a regular basis. She is forgetful. Her echo, 2D 'M' Mode was normal. The patient agreed to stay in the swing bed for PT/OT. Swing bed committee accepted her. The patient was transferred to the swing bed on . TIME SPENT: More than 60 minutes. SUZY
--- NOTE | 2019-05-01 13:56 | PN ---
BILLING The patient was transferred to swing bed on 04/29/19 04/25/19 ADMISSION DAY/LEVEL 5 04/26/19 INTERMEDIATE 04/27/19 INTERMEDIATE 04/28/19 DISCHARGE FROM ACUTE 04/29/19 DISCHARGE TO SWING BED. SUZY
--- NOTE | 2019-05-05 14:58 | HP ---
DATE OF SERVICE: 04/25/19 REASON FOR HOSPITALIZATION/HISTORY OF PRESENT ILLNESS: 88 year old white female hospitalized because of more weakness, feeling short of breath with exertion and decreased appetite. PAST MEDICAL HISTORY: Atrial fibrillation Chronic kidney disease, stage 2 Diabetes Mellitus type 2 Hypertension/LVH COPD Carotid stenosis CHF B12 deficiency DJD spine Dyslipidemia PAST SURGICAL HISTORY: Hysterectomy Tonsils REVIEW OF SYSTEMS: CONSTITUTIONAL: No fever, Fatigue. HEENT: No sinus drainage, no sore throat. RESPIRATORY: No cough, no congestion. CARDIOVASCULAR: No atypical chest pain for coronary artery disease. No angina , CHF symptoms, palpitations or shortness of breath. GASTROINTESTINAL: No melena or abdominal pain. No GERD. GENITOURINARY: No hematuria, no prostatism, no polyuria. EXAMINING CHAIR ASSEMBLER: No blackout, no dizziness, no headache, no double vision. GAIT: Unsteady MUSCULOSKELETAL: Osteoarthritis pain, no joint swelling. ENDOCRINE: No weight loss, no weight gain. SKIN: Not dry, no rash. PSYCHIATRIC: Not anxious, no depression, no suicidal thoughts, no homicidal thoughts. SOCIAL HISTORY: Marital Status: . Alcohol Usage: No. Tobacco Usage: No. FAMILY HISTORY: Father Mother Brother 2 Sister 3 MEDICATIONS: Zocor 40mg PO bedtime Glucophage 1000mg PO twice a day Namenda 10mg PO bedtime Nitrostsat 0.4mg SL as directed PRN Carvedilol 12.5mg PO twice a day Cardizem 30mg PO twice a day Clopidogrel 75mg PO bedtime Vitamin B complex 1 each PO twice a day Folic acid 0.4mg PO twice a day Ferrous sulfate 325mg PO twice a day Vitamin C 500mg PO daily Cozaar 50mg PO daily Lasix 20mg PO QDAC ALLERGIES: No known allergies PHYSICAL EXAMINATION: V/S: Pulse 70, blood pressure 130/52, Oxygen saturation 97%, Height 5'2, weight 100.6 and BMI 18.4. GENERAL APPEARANCE: Oriented times three. Pale. HEENT: Normal. NECK: No JVP, no bruits. RESPIRATORY: Decreased breath sounds. CARDIOVASCULAR: S1, S2, no S3, no murmurs. No cyanosis, clubbing. No ascites. GI/ABDOMEN: No tenderness. Bowel sounds are active. EXTREMITIES: edema, pulses +1, equal. EXAMINING CHAIR ASSEMBLER: Deep tendon reflexes, sensory, motor and gait all normal. RECTAL: Refused/PELVIC: Advised yearly/ refused mammogram. ASSESSMENT: 1. Generalized weakness 2. Recurrent falls 3. Anemia 4. Lower intermittent abdominal pain-resolved 5. History of atrial fibrillation 6. Chronic kidney disease, stage 2 7. Ataxia 8. Cardiac cath-Dr. Nunez 9. Cerebral atrophy 10.Diabetes Mellitus type 2 11.Hypertension/LVH 12.COPD 13.Dementia 14.Carotid stenosis 15.Dyslipidemia 16. CHF 17.B12 deficiency 18.Carotid scan 03/11 19.Echo 03/11 Ejection fraction 60% 20.Left subclavicular artery stent 21.DJD spine 22.History of CHF PLAN: 1. Admit 2. Routine telemetry-no cardiac markers 3. CBC/CMP today and daily 4. Anemia profile 5. T4 TSH 6. O2 at 1-2 liters nasal cannula PRN continuous at night 7. Regular diet- ground meat 8. Fall precautions 9. Chest x-ray 10.Urinalysis 11.Continue all home medications 12.X-ray bilateral hips TIME SPENT: More than 70 minutes. MTDD
== END 2019-04-29 09:30 | disposition swing bed (61) | DRG 690 ==
LOC: MEDSURG B 11:28
PROVIDERS: ADMIT Internal Medicine; ATTEND Internal Medicine

== ENCOUNTER 2019-04-29 09:57 | Inpatient (IN) ==
[2019-04-29 11:06] VITALS: BMI 21.8
[2019-04-29] MEDS ORDERED: LASIX TAB PO PRN (12:27)
[2019-04-29] MEDS ORDERED: NITROSTAT SL PRN (12:27)
--- NOTE | 2019-04-29 14:49 | RS.PTINEVL ---
Subjective - Patient information Date of Evaluation: 04/29/19 Date of Arrival on Unit: 04/29/19 Admitted From:: In-House Transfer (transfer to swing bed) Diagnosis: UTI with Ecoli, anemia Usual Living Arrangement: Lives with Brother Living Arrangement Comments: lives with brother assists with all halfway Environment: House, Stairs (few), Rail Medical History: COPD, Dementia, Diabetes, CHF Medical History Comments:: osteopenia, DJD spine LATEX ALLERGY?: No Surgical History: Hysterectomy Medications: see chart Subjective Information/ Patient Comments:: pt states that she has had some falls at home, states her legs "go out from under her". pt reports that her brother helps with all ADL's. pt states she walks in the house on her own. - Level of function Prior to this admission, the patient could do the following:: Independent Selfcare, Independent Ambulation Current Level of Function: Partially Dependent Current Equipment Used at Home: Walker; W/C; Lift Chair; Glucometer; Nebulizer; Shower Chair Interventions - Objective Patient Orientation: Person, Place Current Interventions: Telemetry Observation: pt with significant increased thoracic kyphosis, forward head, rounded shlds. Range of Motion - ROM Right Upper Extremity AROM: WFL's Left Upper Extremity AROM: WFL's Right Lower Extremity AROM: WFL's Left Lower Extremity AROM: WFL's Muscle Strength - Muscle Strength Right Upper Extremity Strength: Mild Weakness (grossly 4-/5) Left Upper Extremity Strength: Mild Weakness (grossly 4-/5) Right Lower Extremity Strength: Mild Weakness (hip flex 4-/5, knee flex/ext 4/5 , ankle DF/PF 4/5) Left Lower Extremity Strength: Mild Weakness (hip flex 4-/5, knee flex/ext 4/5, ankle DF/PF 4/5) Sensation - Sensation Right Upper Extremity Sensation: Intact/Normal Left Upper Extremity Sensation: Intact/Normal Right Lower Extremity Sensation: Intact/Normal Left Lower Extremity Sensation: Intact/Normal Palpation Palpation Findings: None/Normal Balance - Sitting Balance and Reactions Static Sitting Balance: Good Dynamic Sitting Balance: Fair - Standing Balance and Reactions Static Standing Balance: Poor Dynamic Standing Balance: Poor Standing Equilibrium Reactions: Delayed Left, Delayed Right Standing Protective Reactions: Delayed Left, Delayed Right - Comments Balance Assessment Comments: Tinetti balance score: 13/28 consistent with high fall risk Functional Mobility - Bed Mobility Comments:: pt seen sitting up in recliner and did not wish to go to bed due to being unable to tolerate lying flat. - Transfers Sit to Stand: CGA, Min Assist Stand to Sit: Min Assist - Safety Awareness Safety Awareness: Fair BANDAR INDEX SCORE: 30 Ambulation - Ambulation Assistive Device Used: Rolling Walker Orthotic/Prosthetic Device: No Distance: 140ft Assistance needed with Ambulation: CGA, Min Assist Gait Deviations: Narrow Based gait, Forward posture, Short stride Ambulation Comments: pt amb with narrow ALLIE, decreased step length with repeated cues for posture. pt requires max cues for direction. Factors Affecting Ambulation: Decreased Balance, Weakness, Decreased Safety, Cognitive Status, Limited Endurance Treatment time - Units charged Gait trainin - Time with patient Length of Evaluation: 19 Total treatment time: 31 Patient Education - Education Patient Education: Activity Modification, Education of Plan of Care Teaching Recipient: Patient Teaching Methods: Discussion Comments: discussion regarding POC as well as safety with transfers and gait Assessment - Assessment Problem List:: Decreased level of function, Requires training/education, Decreased safety/Risk of falls, Weakness, Cognitive status limits abilities Rehab Potential: Good Further Therapy Indicated?: Yes Candidate for Swing Bed for Therapy Services?: pt is currently in swing bed Evaluation Complexity: HISTORY: Medium, EXAM OF BODY SYSTEMS: Medium, CLINICAL PRESENTATION: Medium, CLINICAL DECISION MAKING: Medium Short Term Goals GOAL #1: pt demonstrate independence with rolling and bridging in bed Goal to be met by: 05/04/19 GOAL #2: Transfers sit to/from stand CGA Goal to be met by: 05/04/19 GOAL #3: Sup to/from sit CGA to min x 1 Goal to be met by: 05/04/19 GOAL #4: Improve dyn stand balance as noted by tinetti score of Goal to be met by: 05/04/19 GOAL #5: Improve BLE strength 4 to 4+/5 Goal to be met by: 05/04/19 Singing Messenger Goals GOAL #1: pt transfer sit to/from stand SBA Goal to be met by: 05/09/19 GOAL #2: pt amb functional household distances with SBA with rwx with no LOB Goal to be met by: 05/09/19 GOAL #3: Improve dyn stand balance tinetti score (decreased fall risk) Goal to be met by: 05/09/19 Plan Plan of Care: Therapeutic EX, Therapeutic Activity Other:: gait training Frequency of Treatment: 1-2 X day, as tolerated Duration of Treatment: 10 days Anticipated Discharge Destination: Home Treatment Diagnosis (ICD 10 Codes): balance impairement R 26.81. gait difficulty R26.2 Has the Physician been added for Co-signature?: Yes
[2019-04-29] MEDS ORDERED: NON-FORMULARY MEDICATION (Metformin Hcl [Glucophage] 1,000 MG) PO SCH (17:30)
[2019-04-29] MEDS ORDERED: NON-FORMULARY MEDICATION (Ferrous Sulfate [Ferrous Sulfate] 325 MG) PO SCH (17:30)
[2019-04-29] MEDS: GLUCOPHAGE PO SCH (17:38)
[2019-04-29] MEDS: COREG PO SCH (17:39)
[2019-04-29] MEDS: PLAVIX PO SCH (20:10)
[2019-04-29] MEDS: CIPRO PO SCH (20:10)
[2019-04-29] MEDS: CARDIZEM PO SCH (20:10)
[2019-04-29] MEDS: NAMENDA PO SCH (20:11)
[2019-04-29] MEDS: FOLIC ACID PO SCH (20:11)
[2019-04-29] MEDS: FERROUS SULFATE PO SCH (20:11)
[2019-04-29] MEDS ORDERED: FOLIC ACID 0.4 MG PO SCH (21:00)
[2019-04-29] MEDS ORDERED: CARVEDILOL 12.5 MG PO SCH (21:00)
[2019-04-30] MEDS: CIPRO PO SCH ×2 (05:56→21:09)
[2019-04-30] MEDS: FERROUS SULFATE PO SCH ×2 (08:17→21:09)
[2019-04-30] MEDS: CARDIZEM PO SCH ×2 (08:18→21:09)
[2019-04-30] MEDS: FOLIC ACID PO SCH ×2 (08:18→21:09)
[2019-04-30] MEDS: COZAAR PO SCH (08:18)
[2019-04-30] MEDS: GLUCOPHAGE PO SCH ×2 (08:18→16:32)
[2019-04-30] MEDS: COREG PO SCH ×2 (08:18→16:31)
[2019-04-30] MEDS ORDERED: NON-FORMULARY MEDICATION (Losartan Potassium [Cozaar] 50 MG) PO SCH (09:00)
[2019-04-30] MEDS ORDERED: NON-FORMULARY MEDICATION (Losartan Potassium [Cozaar] 100 MG) PO SCH (09:00)
--- NOTE | 2019-04-30 14:25 | RS.OTINEVL ---
Subjective - Patient information Date of Evaluation: 04/30/19 Date of Arrival on Unit: 04/28/19 Diagnosis: Anemia, generalized weakness PRECAUTIONS: At risk for falls, dizziness Usual Living Arrangement: brother Living Arrangement Comments: Pt lives with her brother that is an RN. Pt has help with her bath, her meals, and CGA for walking. Home Environment: House, Stairs (few) Medical History Comments:: DMII, Anemia, impaired posture, recurrent falls, hysterectomy, COPD, Low vision, weight loss, pneumonia, HTN, cardiac disorders, incont./incont. LATEX ALLERGY?: No Surgical History: Hysterectomy Surgical History Comments:: Hysterectomy, Subjective Information/ Patient Comments:: "I will try. I think I could go." - Level of function Prior to this admission, the patient could do the following:: Independent Selfcare, Independent Ambulation Abilities prior to this admission: Pt is able to walk with her rolling walker and her rollator walker at home. Pt is able to dress her UB. Current Equipment Used at Home: Walker; W/C; Lift Chair; Glucometer; Nebulizer; Shower Chair Pain Assessment - Pain Pain Score: 0 Interventions - Objective Patient Orientation: Person Current Interventions: IV's, Telemetry Observation: Pt is weak and taked extra time to complete her toileting personal hygiene. Pt is Min Assist to CGA for transfers from chair to toilet with RW. Pt is independent with personal hygiene. Interventions - ROM Right Upper Extremity AROM: WFL's Left Upper Extremity AROM: WFL's - Strength Right Upper Extremity Strength: Mild Weakness Left Upper Extremity Strength: Mild Weakness - Sensation Right Upper Extremity Sensation: Intact/Normal Left Upper Extremity Sensation: Intact/Normal Balance - Sitting Balance Static Sitting Balance: Fair Dynamic Sitting Balance: Fair - Standing Balance Static Standing Balance: Poor Dynamic Standing Balance: Poor ADL Skills - Self Feeding Self Feeding: Independent - Grooming Grooming: CGA - Bathing Bathing UE: CGA Bathing LE: Min Assist - Dressing Dressing UE: Independent Dressing LE: Supervision - Toilet Management Toileting Management: CGA Functional Mobility - Bed Mobility Rolling R/L: Independent Scooting: Independent Supine to Sit: Not Tested Sit to Supine: Not Tested - Transfers Sit to Stand: CGA Stand to Sit: [facility] Stand Pivot Transfers: CGA - Ambulation Weight Bearing Status: FWB Assistance needed with Ambulation: Min Assist - Safety Awareness Safety Awareness: Fair BANDAR INDEX SCORE: 30 Additional Treatment Performed - Additional units charged ADL: 15 - Time with patient Length of Evaluation: 19 Total treatment time: 34 Activities Would you be interested in leaving your room for activities?: Yes Would you enjoy group activities?: Yes Do you have difficulty with your vision?: Yes What types of things do you enjoy doing? Any Hobbies?: socializing, TV Patient Interests:: Watching Television, Visiting/Socializing Patient Education Patient Education: Education of diagnosis, Home Exercise Program, Home Safety, Education of Plan of Care Teaching Recipient: Patient Teaching Methods: Discussion, Demonstration Assessment Problem List:: Decreased level of function, Requires training/education, Decreased safety/Risk of falls, Weakness, Cognitive status limits abilities Rehab Potential: Fair Further Therapy Indicated?: Yes Candidate for Swing Bed for Therapy Services?: yes Evaluation Complexity: HISTORY: Medium, EXAM OF BODY SYSTEMS: Medium, CLINICAL DECISION MAKING: Medium Short Term Goals - Goals GOAL 1: Pt to tolerate dyn. standing balance to F-/G+ Goal to be met by: 05/06/18 GOAL 2: Pt to increase activity tolerance to 15 minutes with rests PRN. Goal to be met by: 05/06/18 GOAL 3: To increase sink level ADLS to Supervision to return to PLOF. Goal to be met by: 05/06/18 Supervisor Heavy Equipment Goals GOAL 1: Pt to tolerate dyn. standing balance to Good. Goal to be met by: 05/15/18 GOAL 2: Pt to increase activity tolerance to 20 minutes with rests PRN. Goal to be met by: 05/15/18 GOAL 3: To increase sink level ADLS to Mod-I to return to PLOF. Goal to be met by: 05/15/18 Plan Plan of Care: Therapeutic EX, Neuromuscular Re-Educ, Therapeutic Activity, Self- Care/Home Management Frequency of Treatment: 1-2 X day, as tolerated Duration of Treatment: 2 Weeks Anticipated Discharge Destination: Home Treatment Diagnosis (ICD 10 Codes): M62.81 generalized weakness, Z74.1 Need assistance for self care. Has the Physician been added for Co-signature?: Yes
[2019-04-30] MEDS: PLAVIX PO SCH (21:09)
[2019-04-30] MEDS: NAMENDA PO SCH (21:09)
[2019-05-01] MEDS: CIPRO PO SCH ×2 (05:19→20:38)
--- NOTE | 2019-05-01 08:23 | PCM.PROG ---
Attending Provider: ATTENDING PROVIDER: Dr. MONICA KUHN DATE OF SERVICE: 05/01/19 SUBJECTIVE: This 88 year old WHITE/ F was hospitalized 04/29/19. The patient is in swing bed for gait unsteady. The patient is on PT/OT. The patient has good attitude and is cooperative. REVIEW OF SYSTEMS: CONSTITUTIONAL: No night sweats. No fatigue, malaise, lethargy. No fever or chills. HEENT: Eyes: No visual changes. No eye pain. No eye discharge. ENT: No runny nose. No epistaxis. No sinus pain. No odynophagia. No congestion. RESPIRATORY: No cough, no congestion. No hemoptysis. No shortness of breath. CARDIOVASCULAR: No angina symptoms. No CHF symptoms. No atypical chest pain for CAD. No palpitations. No orthopnea.. GASTROINTESTINAL: No abdominal pain. No nausea or vomiting. No diarrhea or constipation. No hematemesis. No hematochezia. GENITOURINARY: No urgency. No frequency. No dysuria. No hematuria. No obstructive symptoms. No discharge. No pain. No significant abnormal bleeding. MUSCULOSKELETAL: No musculoskeletal pain; no joint swelling. NEUROLOGICAL: Awake, alert, oriented to time, place and person. No headache. No neck pain. No syncope. No seizures. No dizziness. PSYCHIATRIC: Not anxious. No depression. No suicidal thoughts. No homicidal thoughts. SKIN: No rash. No lesions. No wounds. ENDOCRINE: No unexplained weight loss. No weight gain. HEMATOLOGIC/LYMPHATIC: No anemia. No purpura. No petechiae. No prolonged or excessive bleeding. No palpable lymph nodes. PHYSICAL EXAMINATION: GENERAL: The patient is awake, alert and oriented, lying in bed in no distress. VITAL SIGNS: Temperature 98.2 F, Pulse 66, Respiratory Rate 16, BP 103/54, Pulse Ox 93% HEENT: Head normocephalic, atraumatic. Eyes: Extraocular muscles are intact. Pupils are equal, round and reactive to light and accommodation. Ears: No lesions. Nose appeared normal. Throat: No exudate or erythema. NECK: Supple. No JVD, no carotid bruit. No lymphadenopathy or thyromegaly. LUNGS: Clear to auscultation. Percussion note normal. Chest symmetrical. HEART: S1, S2, no S3. No murmurs. No cyanosis or clubbing. No ascites. Pulses: Dorsalis pedis and posterior tibial pulses +1 to +2 both sides. ABDOMEN: Soft. Non-tender. Bowel sounds active. No CVA tenderness. No mass felt. EXTREMITIES: No edema. Full range of motion of all extremities, equal. NEUROLOGIC: No focal deficit. Cranial nerves II through XII are grossly intact. No headache, no double vision or headache. SKIN: Warm and dry. Intact. Turgor-normal. LYMPHATIC: No palpable lymph nodes/no lymphedema. MUSCULOSKELETAL: Normal joints with no swelling. Muscle tone is normal. ASSESSMENT: Please see below. 1. Cardiovascular status is stable. 2. Appetite is good. 3. Progressing well with PT/OT CONDITION: Stable SCRIBED BY: Leonard HASSAN scribed while in presence of service performed by Dr. MONICA KUHN on 05/01/19 ([id number])
[2019-05-01] MEDS: FOLIC ACID PO SCH ×2 (08:35→20:38)
[2019-05-01] MEDS: COREG PO SCH ×2 (08:35→16:48)
[2019-05-01] MEDS: GLUCOPHAGE PO SCH ×2 (08:35→16:48)
[2019-05-01] MEDS: COZAAR PO SCH (08:36)
[2019-05-01] MEDS: FERROUS SULFATE PO SCH ×2 (08:36→20:38)
[2019-05-01] MEDS: CARDIZEM PO SCH ×2 (08:36→20:38)
[2019-05-01] MEDS ORDERED: CITRATE OF MAGNESIA PO STA (14:21)
[2019-05-01] MEDS: NAMENDA PO SCH (20:38)
[2019-05-01] MEDS: PLAVIX PO SCH (20:38)
[2019-05-02] MEDS: CIPRO PO SCH ×2 (05:02→20:27)
[2019-05-02] MEDS: FERROUS SULFATE PO SCH ×2 (08:26→20:26)
[2019-05-02] MEDS: GLUCOPHAGE PO SCH ×2 (08:26→16:35)
[2019-05-02] MEDS: COZAAR PO SCH (08:27)
[2019-05-02] MEDS: CARDIZEM PO SCH ×2 (08:27→20:27)
[2019-05-02] MEDS: COREG PO SCH ×2 (08:27→16:35)
[2019-05-02] MEDS: FOLIC ACID PO SCH ×2 (08:27→20:27)
--- NOTE | 2019-05-02 08:44 | PCM.PROG ---
Attending Provider: ATTENDING PROVIDER: Dr. MONICA KUHN DATE OF SERVICE: 05/02/19 SUBJECTIVE: This 88 year old WHITE/ F was hospitalized 04/29/19 with gait disturbance and a few falls. The patient is now on swing bed. She is doing well. The patient still has some leg pains which could be related to neuropathy , peripheral artery disease, DJD spine with radiculopathy. The patient's over all cardiovascular status is stable. REVIEW OF SYSTEMS: CONSTITUTIONAL: No night sweats. No fatigue, malaise, lethargy. No fever or chills. HEENT: Eyes: No visual changes. No eye pain. No eye discharge. ENT: No runny nose. No epistaxis. No sinus pain. No odynophagia. No congestion. RESPIRATORY: No cough, no congestion. No hemoptysis. No shortness of breath. CARDIOVASCULAR: No angina symptoms. No CHF symptoms. No atypical chest pain for CAD. No palpitations. No orthopnea.. GASTROINTESTINAL: No abdominal pain. No nausea or vomiting. No diarrhea or constipation. No hematemesis. No hematochezia. GENITOURINARY: No urgency. No frequency. No dysuria. No hematuria. No obstructive symptoms. No discharge. No pain. No significant abnormal bleeding. MUSCULOSKELETAL: No musculoskeletal pain; no joint swelling. NEUROLOGICAL: Awake, alert, oriented to time, place and person. No headache. No neck pain. No syncope. No seizures. No dizziness. PSYCHIATRIC: Not anxious. No depression. No suicidal thoughts. No homicidal thoughts. SKIN: No rash. No lesions. No wounds. ENDOCRINE: No unexplained weight loss. No weight gain. HEMATOLOGIC/LYMPHATIC: No anemia. No purpura. No petechiae. No prolonged or excessive bleeding. No palpable lymph nodes. PHYSICAL EXAMINATION: GENERAL: The patient is awake, alert and oriented, sitting in bed in no distress. VITAL SIGNS: Temperature 97.8 F, Pulse 63, Respiratory Rate 14, BP 141/68, Pulse Ox 95% HEENT: Head normocephalic, atraumatic. Eyes: Extraocular muscles are intact. Pupils are equal, round and reactive to light and accommodation. Ears: No lesions. Nose appeared normal. Throat: No exudate or erythema. NECK: Supple. No JVD, no carotid bruit. No lymphadenopathy or thyromegaly. LUNGS: Clear to auscultation. Percussion note normal. Chest symmetrical. HEART: S1, S2, no S3. No murmurs. No cyanosis or clubbing. No ascites. Pulses: Dorsalis pedis and posterior tibial pulses +1 to +2 both sides. ABDOMEN: Soft. Non-tender. Bowel sounds active. No CVA tenderness. No mass felt. EXTREMITIES: No edema. Full range of motion of all extremities, equal. NEUROLOGIC: No focal deficit. Cranial nerves II through XII are grossly intact. No headache, no double vision or headache. SKIN: Warm and dry. Intact. Turgor-normal. LYMPHATIC: No palpable lymph nodes/no lymphedema. MUSCULOSKELETAL: Normal joints with no swelling. Muscle tone is normal. LAB REVIEW: 05/02/19 05:06 05/02/19 05:06 05/02/19 05:06: Sodium 137.6, Potassium 4.89, Chloride 99.4, Carbon Dioxide 28.8 , Anion Gap 14.29, BUN 39.4 H, Creatinine 1.22, Estimated GFR (MDRD) 42.00, BUN/ Creatinine Ratio 32.29, Glucose 99.2, Calcium 9.84, Total Bilirubin 0.69, AST 20.8, ALT 13.8, Alkaline Phosphatase 106.7, Total Protein 6.83, Albumin 3.65, Globulin 3.18, Albumin/Globulin Ratio 1.14 05/02/19 05:06: WBC 6.78, RBC 4.03 L, Hgb 10.8 L, Hct 33.9 L, MCV 84.1, MCH 26.8 L, MCHC 31.9, RDW Coeff of Ray 15.8 H, Plt Count 195, Immature Gran % (Auto ) 0.3, Neut % (Auto) 55.5, Lymph % (Auto) 35.3, [place] % (Auto) 6.6, Eos % (Auto) 1.9, Baso % (Auto) 0.4, Immature Gran # (Auto) 0.0, Neut # (Auto) 3.8, Lymph # ( Auto) 2.4, [place] # (Auto) 0.5, Eos # (Auto) 0.1, Baso # (Auto) 0.0 ASSESSMENT: Please see below. 1. Gait disturbance, impairment balance from age progression, radiculopathy and peripheral arterial disease. PLAN: 1. The patient is working on her ambulation. Plan and coordination of the patient's care discussed in the presence of Marketing Traffic Coordinator and nurse. CONDITION: Stable SCRIBED BY: Leonard HASSAN scribed while in presence of service performed by Dr. MONICA KUHN on 05/02/19 ([id number])
[2019-05-02] MEDS: PLAVIX PO SCH (20:27)
[2019-05-02] MEDS: NAMENDA PO SCH (20:27)
[2019-05-03] MEDS: CIPRO PO SCH ×2 (05:56→20:30)
[2019-05-03] MEDS: GLUCOPHAGE PO SCH ×2 (09:08→17:01)
[2019-05-03] MEDS: CARDIZEM PO SCH ×2 (09:08→20:31)
[2019-05-03] MEDS: COZAAR PO SCH (09:08)
[2019-05-03] MEDS: FERROUS SULFATE PO SCH ×2 (09:08→20:30)
[2019-05-03] MEDS: COREG PO SCH ×2 (09:09→17:01)
[2019-05-03] MEDS: FOLIC ACID PO SCH ×2 (09:09→20:31)
[2019-05-03] MEDS: PLAVIX PO SCH (20:30)
[2019-05-03] MEDS: NAMENDA PO SCH (20:31)
[2019-05-04] MEDS: CIPRO PO SCH ×2 (05:04→20:38)
[2019-05-04] MEDS: FOLIC ACID PO SCH ×2 (08:38→20:37)
[2019-05-04] MEDS: FERROUS SULFATE PO SCH ×2 (08:38→20:38)
[2019-05-04] MEDS: COZAAR PO SCH (08:39)
[2019-05-04] MEDS: CARDIZEM PO SCH ×2 (08:39→20:38)
[2019-05-04] MEDS: COREG PO SCH ×2 (08:39→16:51)
[2019-05-04] MEDS: GLUCOPHAGE PO SCH ×2 (08:39→16:51)
[2019-05-04] MEDS: NAMENDA PO SCH (20:38)
[2019-05-04] MEDS: PLAVIX PO SCH (20:38)
[2019-05-05] MEDS: CIPRO PO SCH ×2 (05:13→20:30)
[2019-05-05] MEDS: COREG PO SCH ×2 (08:01→16:44)
[2019-05-05] MEDS: CARDIZEM PO SCH ×2 (08:01→20:29)
[2019-05-05] MEDS: GLUCOPHAGE PO SCH ×2 (08:02→16:44)
[2019-05-05] MEDS: COZAAR PO SCH (08:02)
[2019-05-05] MEDS: FOLIC ACID PO SCH ×2 (08:02→20:29)
[2019-05-05] MEDS: FERROUS SULFATE PO SCH ×2 (08:02→20:29)
--- NOTE | 2019-05-05 09:21 | PCM.PROG ---
Attending Provider: ATTENDING PROVIDER: Dr. MONICA KUHN DATE OF SERVICE: 05/05/19 SUBJECTIVE: This 88 year old WHITE/ F was hospitalized 04/29/19 with frequent falls , is on swing bed to improve gait and balance. The patient is progressing well. She is able to walk with some help. REVIEW OF SYSTEMS: CONSTITUTIONAL: No night sweats. No fatigue, malaise, lethargy. No fever or chills. HEENT: Eyes: No visual changes. No eye pain. No eye discharge. ENT: No runny nose. No epistaxis. No sinus pain. No odynophagia. No congestion. RESPIRATORY: No cough, no congestion. No hemoptysis. No shortness of breath. CARDIOVASCULAR: No angina symptoms. No CHF symptoms. No atypical chest pain for CAD. No palpitations. No orthopnea.. GASTROINTESTINAL: No abdominal pain. No nausea or vomiting. No diarrhea or constipation. No hematemesis. No hematochezia. GENITOURINARY: No urgency. No frequency. No dysuria. No hematuria. No obstructive symptoms. No discharge. No pain. No significant abnormal bleeding. MUSCULOSKELETAL: No musculoskeletal pain; no joint swelling. NEUROLOGICAL: Awake, alert, oriented to time, place and person. No headache. No neck pain. No syncope. No seizures. No dizziness. PSYCHIATRIC: Not anxious. No depression. No suicidal thoughts. No homicidal thoughts. SKIN: No rash. No lesions. No wounds. ENDOCRINE: No unexplained weight loss. No weight gain. HEMATOLOGIC/LYMPHATIC: No anemia. No purpura. No petechiae. No prolonged or excessive bleeding. No palpable lymph nodes. PHYSICAL EXAMINATION: GENERAL: The patient is awake, alert and oriented, sitting in bed in no distress. VITAL SIGNS: Temperature 98.3 F, Pulse 68, Respiratory Rate 18, BP 118/53, Pulse Ox 95% HEENT: Head normocephalic, atraumatic. Eyes: Extraocular muscles are intact. Pupils are equal, round and reactive to light and accommodation. Ears: No lesions. Nose appeared normal. Throat: No exudate or erythema. NECK: Supple. No JVD, no carotid bruit. No lymphadenopathy or thyromegaly. LUNGS: Decreased breath sounds with few creps at the bases. Percussion note normal. Chest symmetrical. HEART: S1, S2, no S3. No murmurs. No cyanosis or clubbing. No ascites. Pulses: Dorsalis pedis and posterior tibial pulses +1 to +2 both sides. ABDOMEN: Soft. Non-tender. Bowel sounds active. No CVA tenderness. No mass felt. EXTREMITIES: No edema. Full range of motion of all extremities, equal. NEUROLOGIC: No focal deficit. Cranial nerves II through XII are grossly intact. No headache, no double vision or headache. SKIN: Warm and dry. Intact. Turgor-normal. LYMPHATIC: No palpable lymph nodes/no lymphedema. MUSCULOSKELETAL: Normal joints with no swelling. Muscle tone is normal. LAB REVIEW: 05/05/19 04:45 05/05/19 04:45 05/05/19 04:45: Sodium 137.9, Potassium 4.75, Chloride 99.7, Carbon Dioxide 24.8 , Anion Gap 18.15, BUN 43.9 H, Creatinine 1.09, Estimated GFR (MDRD) 48.00, BUN/ Creatinine Ratio 40.27, Glucose 78.8, Calcium 9.74, Total Bilirubin 0.36, AST 21.2, ALT 15.2, Alkaline Phosphatase 89.2, Total Protein 6.30, Albumin 3.33 L, Globulin 2.97, Albumin/Globulin Ratio 1.12 05/05/19 04:45: WBC 6.05, RBC 3.41 L, Hgb 9.1 L, Hct 29.3 L, MCV 85.9, MCH 26.7 L, MCHC 31.1 L, RDW Coeff of Ray 15.9 H, Plt Count 174, Immature Gran % (Auto) 0.3, Neut % (Auto) 49.0, Lymph % (Auto) 40.7, [place] % (Auto) 7.9, Eos % (Auto) 1.8, Baso % (Auto) 0.3, Immature Gran # (Auto) 0.0, Neut # (Auto) 3.0, Lymph # ( Auto) 2.5, [place] # (Auto) 0.5, Eos # (Auto) 0.1, Baso # (Auto) 0.0 ASSESSMENT: Please see below. 1. Gait training for impaired balance and recurrent falls, progressing well with PT. PLAN: Continue with current plan of care. Plan and coordination of the patient's care discussed in the presence of Data Programmer and nurse. CONDITION: Stable SCRIBED BY: SADIE JOHNSON, Crisis Counselor scribed while in presence of service performed by Dr. MONICA KUHN on 05/05/19 ([id number])
[2019-05-05] MEDS: PLAVIX PO SCH (20:29)
[2019-05-05] MEDS: NAMENDA PO SCH (20:30)
[2019-05-06] MEDS: CIPRO PO SCH ×2 (05:45→20:44)
[2019-05-06] MEDS: CARDIZEM PO SCH ×2 (08:01→20:44)
[2019-05-06] MEDS: COZAAR PO SCH (08:02)
[2019-05-06] MEDS: COREG PO SCH ×2 (08:02→16:41)
[2019-05-06] MEDS: FOLIC ACID PO SCH ×2 (08:02→20:45)
[2019-05-06] MEDS: FERROUS SULFATE PO SCH ×2 (08:02→20:44)
[2019-05-06] MEDS: GLUCOPHAGE PO SCH ×2 (08:02→16:41)
--- NOTE | 2019-05-06 10:54 | HP ---
DATE OF SERVICE: 04/29/19 - SWING BED REASON FOR SWING BED ADMISSION: Further gait training and PT/OT. This patient has ataxia and frequent falls. HISTORY OF PRESENT ILLNESS: 88-year-old white female hospitalized with frequent falls, weakness, deterioration of overall status. The patient during the stay in the hospital was monitored. She had E. coli and urinary tract infection that could have been likely cause of her getting weak. In any case, the patient was treated with Cipro twice a day. During the stay in the hospital she was continued on all medications as before. It is very likely that the patient is not taking her medication on a regular basis. She is forgetful. Her echo 2D 'M' Mode was normal. The patient agreed to be transferred to Swing Bed for PT/OT. Swing bed committee has accepted her. The patient was transferred today 04/29/19. PAST MEDICAL/SURGICAL HISTORY: History of coronary artery disease CHF Peripheral arterial disease Anemia Chronic kidney disease Dyslipidemia Diabetes mellitus REVIEW OF SYSTEMS: CONSTITUTIONAL: Fatigue and weakness. No night sweats. No malaise, lethargy. No fever or chills. HEENT: Eyes: No visual changes. No eye pain. No eye discharge. ENT: No runny nose. No epistaxis. No sinus pain. No sore throat. No odynophagia. No ear pain. No congestion. RESPIRATORY: Mild cough. No hemoptysis. CARDIOVASCULAR: Shortness of breath on exertion. No angina symptoms. No CHF symptoms. No atypical chest pain for CAD. No palpitations. No PND. GASTROINTESTINAL: No abdominal pain. No nausea or vomiting. No diarrhea or constipation. No hematemesis. No hematochezia. GENITOURINARY: No urgency. No frequency. No dysuria. No hematuria. No obstructive symptoms. No discharge. No pain. No significant abnormal bleeding. MUSCULOSKELETAL: No musculoskeletal pain. No joint swelling. No arthritis. SENIOR DATABASE ENGINEER: Ataxia with imbalance and frequent falls. No blackout. NEUROLOGICAL: No headache. No neck pain. No syncope. No seizures. No dizziness. PSYCHIATRIC: Not anxious. No depression. No suicidal thoughts. No homicidal thoughts. SKIN: No rash. No lesions. No wounds. ENDOCRINE: No unexplained weight loss. No weight gain. HEMATOLOGIC/LYMPHATIC: No anemia. No purpura. No petechiae. No prolonged or excessive bleeding. No palpable lymph nodes. PERSONAL/FAMILY/SOCIAL HISTORY: The patient is , lives by herself with the help of brother. Nonsmoker, no alcohol abuse. She does practically all activity of daily living with the help of brother. MEDICATIONS: Metformin Simvastatin Memantine Carvedilol Diltiazem Clopidogrel Furosemide Losartan ALLERGIES: NKDA PHYSICAL EXAMINATION: GENERAL: The patient is oriented to time, place and person. VITAL SIGNS: Temperature 97.4, respiratory rate 16, blood pressure 124/70, pulse ox 98%. HEENT: Looks pale. Head normocephalic, atraumatic. Eyes: Extraocular muscles are intact. Pupils are equal, round and reactive to light and accommodation. Ears: No lesions. Nose appeared normal. Throat: No exudate or erythema. NECK: Supple. No JVD, no carotid bruit. No lymphadenopathy or thyromegaly. LUNGS: Decreased breath sounds but clear to auscultation. Percussion note normal. Chest symmetrical. HEART: S1, S2, no S3. No murmurs. No cyanosis or clubbing. No ascites. Pulses: Dorsalis pedis and posterior tibial pulses +1 to +2 bilaterally. ABDOMEN: Soft. Nontender. Bowel sounds active. No CVA tenderness. No mass felt. EXTREMITIES: Trace edema noted. Full range of motion of all extremities, equal. NEUROLOGIC: No focal deficit. Cranial nerves II through XII are grossly intact. No headache, no double vision or headache. SKIN: Not dry. Intact. Turgor - normal. LYMPHATIC: No palpable lymph nodes/no lymphedema. MUSCULOSKELETAL: Normal joints with no swelling. Muscle tone is normal. ASSESSMENT: 1. Unsteadiness, ataxia, impaired balance requiring swing bed admission with further PT and OT. 2. Coronary artery disease. 3. Peripheral arterial disease. 4. COPD. 5. CHF. 6. Anemia. 7. CKD. 8. Diabetes mellitus. 9. Dyslipidemia. PLAN: 1. Admission to swing bed for further gait training, PT and OT. TIME SPENT: More than 70 minutes. [facility]
--- NOTE | 2019-05-06 11:47 | PN ---
DATE OF SERVICE: 05/03/19 - SWING BED SUBJECTIVE: 88-year-old white female hospitalized with gait disturbance, impaired balance, decline in endurance and recurrent falls. The patient's cardiovascular status is stable. Echocardiogram showed normal LV contractility, normal valves. The patient is motivated. REVIEW OF SYSTEMS: CONSTITUTIONAL: No night sweats. No fatigue, malaise, lethargy. No fever or chills. HEENT: Eyes: No visual changes. No eye pain. No eye discharge. ENT: No runny nose. No epistaxis. No sinus pain. No sore throat. No odynophagia. No congestion. RESPIRATORY: No cough, no congestion. No hemoptysis. No shortness of breath. CARDIOVASCULAR: No angina symptoms. No CHF symptoms. No atypical chest pain for CAD. No palpitations. No PND. No orthopnea. GASTROINTESTINAL: No abdominal pain. No nausea or vomiting. No diarrhea or constipation. No hematemesis. No hematochezia. GENITOURINARY: No urgency. No frequency. No dysuria. No hematuria. No obstructive symptoms. No discharge. No pain. No significant abnormal bleeding. MUSCULOSKELETAL: No musculoskeletal pain; no joint swelling. NEUROLOGICAL: No headache. No neck pain. No syncope. No seizures. No dizziness. PSYCHIATRIC: Not anxious. No depression. No suicidal thoughts. No homicidal thoughts. SKIN: No rash. No lesions. No wounds. ENDOCRINE: No unexplained weight loss. No weight gain. HEMATOLOGIC/LYMPHATIC: No anemia. No purpura. No petechiae. No prolonged or excessive bleeding. No palpable lymph nodes. PHYSICAL EXAMINATION: VITAL SIGNS: Temperature 98, pulse 68, respiratory rate 20, BP 150/62, pulse ox 97%. HEENT: Head normocephalic, atraumatic. Eyes: Extraocular muscles are intact. Pupils are equal, round and reactive to light and accommodation. Ears: No lesions. Nose appeared normal. Throat: No exudate or erythema. NECK: Supple. No JVD, no carotid bruit. No lymphadenopathy or thyromegaly. LUNGS: Decreased breath sounds but clear to auscultation. Percussion note normal. Chest symmetrical. HEART: S1, S2, no S3. No murmurs. No cyanosis or clubbing. No ascites. Pulses: Dorsalis pedis and posterior tibial pulses +1 to +2 bilaterally. ABDOMEN: Soft. Nontender. Bowel sounds active. No CVA tenderness. No mass felt. EXTREMITIES: No edema. Full range of motion of all extremities, equal. NEUROLOGIC: No focal deficit. Cranial nerves II through XII are grossly intact. No headache, no double vision or headache. SKIN: Not dry. Intact. Turgor - normal. LYMPHATIC: No palpable lymph nodes/no lymphedema. MUSCULOSKELETAL: Normal joints with no swelling. Muscle tone is normal. LABS: Hemoglobin 10.8, hematocrit 33, WBC 6,700, normal differential. Creatinine 1.2, BUN 39, potassium 4.8, GFR 42 cc/min. ASSESSMENT: 1. Frequent falls with impaired balance, less endurance, gait disturbances. PLAN: 1. Continue PT/OT. The patient is progressing well, eating better. 2. Cardiovascular status stable. TIME SPENT: More than 30 minutes. Plan and coordination of the patient's care discussed in the presence of nurse. SUZY
--- NOTE | 2019-05-06 13:04 | PN ---
DATE OF SERVICE: 05/04/19 SUBJECTIVE: 88-year-old white female was hospitalized to the swing bed because of decreased endurance with gait disturbance, impaired balance, frequent falls. The patient' s cardiovascular status is stable with no evidence of CHF or coronary insufficiency. REVIEW OF SYSTEMS: CONSTITUTIONAL: Weakness. No night sweats. No fatigue, malaise, lethargy. No fever or chills. HEENT: Eyes: No visual changes. No eye pain. No eye discharge. ENT: No runny nose. No epistaxis. No sinus pain. No sore throat. No odynophagia. No congestion. RESPIRATORY: No cough, no congestion. No hemoptysis. CARDIOVASCULAR: Shortness of breath on exertion. No angina symptoms. No CHF symptoms. No atypical chest pain for CAD. No palpitations. No PND. No orthopnea. GASTROINTESTINAL: No abdominal pain. No nausea or vomiting. No diarrhea or constipation. No hematemesis. No hematochezia. GENITOURINARY: No urgency. No frequency. No dysuria. No hematuria. No obstructive symptoms. No discharge. No pain. No significant abnormal bleeding. MUSCULOSKELETAL: No musculoskeletal pain; no joint swelling. NEUROLOGICAL: No headache. No neck pain. No syncope. No seizures. No dizziness. PSYCHIATRIC: Not anxious. No depression. No suicidal thoughts. No homicidal thoughts. SKIN: No rash. No lesions. No wounds. ENDOCRINE: No unexplained weight loss. No weight gain. HEMATOLOGIC/LYMPHATIC: No anemia. No purpura. No petechiae. No prolonged or excessive bleeding. No palpable lymph nodes. PHYSICAL EXAMINATION: VITAL SIGNS: Temperature 98.2, pulse 70, respiratory rate 18, blood pressure 150 /60. Pulse ox 92% on room air. HEENT: Head normocephalic, atraumatic. Eyes: Extraocular muscles are intact. Pupils are equal, round and reactive to light and accommodation. Ears: No lesions. Nose appeared normal. Throat: No exudate or erythema. NECK: Supple. No JVD, no carotid bruit. No lymphadenopathy or thyromegaly. LUNGS: Decreased breath sounds but clear to auscultation. Percussion note normal. Chest symmetrical. HEART: S1, S2, no S3. No murmurs. No cyanosis or clubbing. No ascites. Pulses: Dorsalis pedis and posterior tibial pulses +1 to +2 bilaterally. ABDOMEN: Soft. Nontender. Bowel sounds active. No CVA tenderness. No mass felt. EXTREMITIES: No edema. Full range of motion of all extremities, equal. NEUROLOGIC: No focal deficit. Cranial nerves II through XII are grossly intact. No headache, no double vision or headache. SKIN: Not dry. Intact. Turgor - normal. LYMPHATIC: No palpable lymph nodes/no lymphedema. MUSCULOSKELETAL: Normal joints with no swelling. Muscle tone is normal. LABS: Stable hemoglobin, hematocrit, creatinine and BUN. ASSESSMENT: 1. Decreased endurance. 2. Ataxia. 3. General decline in overall patient's cardiovascular status, physical status with recurrent falls. PLAN: 1. Continue PT/OT. CONDITION: Stable TIME SPENT: More than 30 minutes. Plan and coordination of the patient's care discussed in the presence of nurse. SUZY
[2019-05-06] MEDS: PLAVIX PO SCH (20:44)
[2019-05-06] MEDS: NAMENDA PO SCH (20:44)
[2019-05-07] MEDS: FOLIC ACID PO SCH ×2 (08:35→20:19)
[2019-05-07] MEDS: COZAAR PO SCH (08:35)
[2019-05-07] MEDS: COREG PO SCH ×2 (08:36→17:01)
[2019-05-07] MEDS: FERROUS SULFATE PO SCH ×2 (08:36→20:18)
[2019-05-07] MEDS: GLUCOPHAGE PO SCH ×2 (08:36→17:02)
[2019-05-07] MEDS: CARDIZEM PO SCH ×2 (08:36→20:18)
--- NOTE | 2019-05-07 09:05 | PCM.PROG ---
Attending Provider: ATTENDING PROVIDER: Dr. MONICA KUHN This patient is seen with Dee Miller, Nurse Practitioner. DATE OF SERVICE: 05/07/19 SUBJECTIVE: This 88 year old WHITE/ F was hospitalized 04/29/19. The patient is resting comfortably. She is still having generalized weakness. Hemoglobin is stable. REVIEW OF SYSTEMS: CONSTITUTIONAL: Fatigue and weakness. No night sweats. No malaise, lethargy. No fever or chills. HEENT: Eyes: No visual changes. No eye pain. No eye discharge. ENT: No runny nose. No epistaxis. No sinus pain. No odynophagia. No congestion. RESPIRATORY: No cough, no congestion. No hemoptysis. No shortness of breath. CARDIOVASCULAR: No angina symptoms. No CHF symptoms. No atypical chest pain for CAD. No palpitations. No orthopnea.. GASTROINTESTINAL: No abdominal pain. No nausea or vomiting. No diarrhea or constipation. No hematemesis. No hematochezia. GENITOURINARY: No urgency. No frequency. No dysuria. No hematuria. No obstructive symptoms. No discharge. No pain. No significant abnormal bleeding. MUSCULOSKELETAL: No musculoskeletal pain; no joint swelling. NEUROLOGICAL: Awake, alert, oriented to time, place and person. No headache. No neck pain. No syncope. No seizures. No dizziness. PSYCHIATRIC: Not anxious. No depression. No suicidal thoughts. No homicidal thoughts. SKIN: No rash. No lesions. No wounds. ENDOCRINE: No unexplained weight loss. No weight gain. HEMATOLOGIC/LYMPHATIC: No anemia. No purpura. No petechiae. No prolonged or excessive bleeding. No palpable lymph nodes. PHYSICAL EXAMINATION: GENERAL: The patient is awake, alert and oriented, lying/sitting in bed in no distress. VITAL SIGNS: Temperature 98.0 F, Pulse 70, Respiratory Rate 20, BP 134/64, Pulse Ox 95% HEENT: Head normocephalic, atraumatic. Eyes: Extraocular muscles are intact. Pupils are equal, round and reactive to light and accommodation. Ears: No lesions. Nose appeared normal. Throat: No exudate or erythema. NECK: Supple. No JVD, no carotid bruit. No lymphadenopathy or thyromegaly. LUNGS: Diminished breath sounds. Clear to auscultation. Percussion note normal. Chest symmetrical. HEART: S1, S2, no S3. No murmurs. No cyanosis or clubbing. No ascites. Pulses: Dorsalis pedis and posterior tibial pulses +1 to +2 both sides. ABDOMEN: Soft. Non-tender. Bowel sounds active. No CVA tenderness. No mass felt. EXTREMITIES: No edema. Full range of motion of all extremities, equal. NEUROLOGIC: No focal deficit. Cranial nerves II through XII are grossly intact. No headache, no double vision or headache. SKIN: Not dry. Intact. Turgor-normal. LYMPHATIC: No palpable lymph nodes/no lymphedema. MUSCULOSKELETAL: Normal joints with no swelling. Muscle tone is normal. LAB REVIEW: 05/05/19 04:45 05/05/19 04:45 ASSESSMENT: 1. Gait training for impaired balance and recurrent falls, progressing well with PT. PLAN: 1. Continue PT/OT. 2. Anticipate discharge home tomorrow or Sunday. 3. Repeat CBC, CMP today. Plan and coordination of the patient's care discussed in the presence of Chaperon and nurse. CONDITION: Stable SCRIBED BY: SADIE JOHNSON Broadcast Operations Engineer scribed while in presence of service performed by Dr. Kuhn/Dee Miller APRN on 05/07/19 ([id number])
[2019-05-07] MEDS: PLAVIX PO SCH (20:18)
[2019-05-07] MEDS: NAMENDA PO SCH (20:19)
[2019-05-08 05:00] VITALS: TEMP 97.9
[2019-05-08 07:12] VITALS: BP 170/90
[2019-05-08] MEDS: COREG PO SCH (08:24)
[2019-05-08] MEDS: FERROUS SULFATE PO SCH (08:24)
[2019-05-08] MEDS: CARDIZEM PO SCH (08:24)
[2019-05-08] MEDS: COZAAR PO SCH (08:24)
[2019-05-08] MEDS: GLUCOPHAGE PO SCH (08:24)
[2019-05-08] MEDS: FOLIC ACID PO SCH (08:25)
--- NOTE | 2019-05-08 08:48 | PCM.PROG ---
Attending Provider: ATTENDING PROVIDER: Dr. MONICA KUHN This patient is seen with Dee Miller, Nurse Practitioner. DATE OF SERVICE: 05/08/19 SUBJECTIVE: This 88 year old WHITE/ F was hospitalized 04/29/19. The patient is resting comfortably. She has been doing well with PT. She still has some weakness but given her age I feel this is normal. She has been eating well. REVIEW OF SYSTEMS: CONSTITUTIONAL: Weakness. No night sweats. No fatigue, malaise, lethargy. No fever or chills. HEENT: Eyes: No visual changes. No eye pain. No eye discharge. ENT: No runny nose. No epistaxis. No sinus pain. No odynophagia. No congestion. RESPIRATORY: No cough, no congestion. No hemoptysis. No shortness of breath. CARDIOVASCULAR: No angina symptoms. No CHF symptoms. No atypical chest pain for CAD. No palpitations. No orthopnea. Positive for hypertension. GASTROINTESTINAL: No abdominal pain. No nausea or vomiting. No diarrhea or constipation. No hematemesis. No hematochezia. GENITOURINARY: No urgency. No frequency. No dysuria. No hematuria. No obstructive symptoms. No discharge. No pain. No significant abnormal bleeding. MUSCULOSKELETAL: No musculoskeletal pain; no joint swelling. NEUROLOGICAL: Awake, alert, oriented to time, place and person. No headache. No neck pain. No syncope. No seizures. No dizziness. PSYCHIATRIC: Not anxious. No depression. No suicidal thoughts. No homicidal thoughts. SKIN: No rash. No lesions. No wounds. ENDOCRINE: No unexplained weight loss. No weight gain. HEMATOLOGIC/LYMPHATIC: No anemia. No purpura. No petechiae. No prolonged or excessive bleeding. No palpable lymph nodes. PHYSICAL EXAMINATION: GENERAL: The patient is awake, alert and oriented, lying/sitting in bed in no distress. VITAL SIGNS: Temperature 97.9 F, Pulse 78, Respiratory Rate 16, BP 170/90, Pulse Ox 95% HEENT: Head normocephalic, atraumatic. Eyes: Extraocular muscles are intact. Pupils are equal, round and reactive to light and accommodation. Ears: No lesions. Nose appeared normal. Throat: No exudate or erythema. NECK: Supple. No JVD, no carotid bruit. No lymphadenopathy or thyromegaly. LUNGS: Diminished breath sounds. Clear to auscultation. Percussion note normal. Chest symmetrical. HEART: S1, S2, no S3. No murmurs. No cyanosis or clubbing. No ascites. Pulses: Dorsalis pedis and posterior tibial pulses +1 to +2 both sides. ABDOMEN: Soft. Non-tender. Bowel sounds active. No CVA tenderness. No mass felt. EXTREMITIES: No edema. Full range of motion of all extremities, equal. NEUROLOGIC: No focal deficit. Cranial nerves II through XII are grossly intact. No headache, no double vision or headache. SKIN: Not dry. Intact. Turgor-normal. LYMPHATIC: No palpable lymph nodes/no lymphedema. MUSCULOSKELETAL: Normal joints with no swelling. Muscle tone is normal. LAB REVIEW: 05/08/19 05:26 05/08/19 05:26 05/08/19 05:26: Sodium 138.6, Potassium 4.38, Chloride 102.7, Carbon Dioxide 29.2, Anion Gap 11.08, BUN 35.3 H, Creatinine 0.96, Estimated GFR (MDRD) 55.00, BUN/Creatinine Ratio 36.77, Glucose 107.8 H, Calcium 9.96, Total Bilirubin 0.38 , AST 21.4, ALT 13.8, Alkaline Phosphatase 86.0, Total Protein 6.66, Albumin 3.61, Globulin 3.05, Albumin/Globulin Ratio 1.18 05/08/19 05:26: WBC 7.37, RBC 3.70 L, Hgb 9.8 L, Hct 31.6 L, MCV 85.4, MCH 26.5 L, MCHC 31.0 L, RDW Coeff of Ray 15.9 H, Plt Count 185, Immature Gran % (Auto) 0.4, Neut % (Auto) 57.3, Lymph % (Auto) 33.6, Faulk % (Auto) 6.5, Eos % (Auto) 1.8, Baso % (Auto) 0.4, Immature Gran # (Auto) 0.0, Neut # (Auto) 4.2, Lymph # ( Auto) 2.5, Faulk # (Auto) 0.5, Eos # (Auto) 0.1, Baso # (Auto) 0.0 05/07/19 08:01: Sodium 138.3, Potassium 4.36, Chloride 100.0, Carbon Dioxide 28.2, Anion Gap 14.46, BUN 36.9 H, Creatinine 0.99, Estimated GFR (MDRD) 53.00, BUN/Creatinine Ratio 37.27, Glucose 105.5, Calcium 9.86, Total Bilirubin 0.45, AST 20.4, ALT 15.0, Alkaline Phosphatase 85.1, Total Protein 6.91, Albumin 3.74 , Globulin 3.17, Albumin/Globulin Ratio 1.17 05/07/19 08:01: WBC 5.78, RBC 3.74 L, Hgb 9.9 L, Hct 31.7 L, MCV 84.8, MCH 26.5 L, MCHC 31.2 L, RDW Coeff of Ray 15.9 H, Plt Count 183, Immature Gran % (Auto) 0.2, Neut % (Auto) 50.5, Lymph % (Auto) 41.0, Faulk % (Auto) 6.6, Eos % (Auto) 1.2, Baso % (Auto) 0.5, Immature Gran # (Auto) 0.0, Neut # (Auto) 2.9, Lymph # ( Auto) 2.4, Faulk # (Auto) 0.4, Eos # (Auto) 0.1, Baso # (Auto) 0.0 ASSESSMENT: Please see below. 1. Gait training for impaired balance and recurrent falls, progressing well with PT. PLAN: 1. Discharge home. 2. Continue medications as they are except Zocor. 3. The patient may benefit from Home Health, PT/OT if she desires. 4. The patient is to followup in the office next week. Plan and coordination of the patient's care discussed in the presence of Demolition Hammer Operator and nurse. CONDITION: Stable SCRIBED BY: SADIE JOHNSON Police Clerk scribed while in presence of service performed by Dr. Kuhn/Dee Miller APRN on 05/08/19 ([id number])
--- NOTE | 2019-05-08 11:36 | CM.DICTOOL ---
ADMISSION: 04/29/19 09:57 DISCHARGE: 05/08/2019 DATE OF SERVICE: 05/08/19 FINAL DIAGNOSIS GAIT UNSTEADINESS IMPAIRED BALANCE RECURRENT FALLS HYPERTENSION LEFT VENTRICULAR HYPERTROPHY CONGESTIVE HEART FAILURE CORONARY ARTERY DISEASE PERIPHERAL ARTERIAL DISEASE COPD, OXYGEN PRN AT HOME DIABETES MELLITUS CHRONIC KIDNEY DISEASE, STAGE 2 ANEMIA HISTORY OF ATRIAL FIBRILLATION DYSLIPIDEMIA DEMENTIA WEAKNESS, GENERALIZED, CHRONIC CAROTID STENOSIS; RIGHT 50-69% STENOSIS (11/2016) OSTEOPENIA (HIPS) DJD SPINE FORMER SMOKER, QUIT X30 YEARS PARTIAL HYSTERECTOMY LAST VITALS Temp Pulse Resp BP Pulse Ox 97.9 F 78 16 170/90 H 95 05/08/19 07:11 05/08/19 07:11 05/08/19 07:11 05/08/19 07:11 05/08/19 07:11 TAKE THESE MEDICATIONS AT HOME Carvedilol (Coreg) 12.5 mg PO BIDWM [facility] Last Admin: 05/08/19 08:24 Dose: 12.5 mg Clopidogrel Bisulfate (Plavix) 75 mg PO BEDTIME [facility] Last Admin: 05/07/19 20:18 Dose: 75 mg Diltiazem HCl (Cardizem) 60 mg PO Q12HR [facility] Last Admin: 05/08/19 08:24 Dose: 60 mg Ferrous Sulfate (Ferrous Sulfate) 324 mg PO BID [facility] Last Admin: 05/08/19 08:24 Dose: 324 mg Folic Acid (Folic Acid) 0.5 mg PO BID [facility] Last Admin: 05/08/19 08:25 Dose: 0.5 mg Furosemide (Lasix Tab) 20 mg PO QDAC PRN PRN Reason: HTN/Increased swelling Losartan Potassium (Cozaar) 100 mg PO DAILY [facility] Last Admin: 05/08/19 08:24 Dose: 100 mg Memantine (Namenda) 10 mg PO BEDTIME [facility] Last Admin: 05/07/19 20:19 Dose: 10 mg Metformin HCl (Glucophage) 1,000 mg PO BIDWM [facility] Last Admin: 05/08/19 08:24 Dose: 1,000 mg Nitroglycerin (Nitrostat) 0.4 mg SL Q5MIN X 3 DOSES PRN PRN Reason: Chest Pain ALLERGIES No Known Allergies Allergy (Verified 01/22/18 15:57) DISCONTINUED MEDICATIONS SIMVASTATIN NEW PRESCRIPTIONS: DILTIAZEM 60MG PO Q12H LOSARTAN 100MG PO DAILY SMOKING: FORMER SMOKER, QUIT 30 YEARS AGO DISEASE SPECIFIC EDUCATION: GENERALIZED WEAKNESS, CHRONIC FOLLOW-UPS CONGESTIVE HEART FAILURE HEART HEALTHY DIET FOLLOW-UPS LAB REVIEW: 05/08/19 05:26 05/08/19 05:26 05/08/19 05:26: Sodium 138.6, Potassium 4.38, Chloride 102.7, Carbon Dioxide 29.2, Anion Gap 11.08, BUN 35.3 H, Creatinine 0.96, Estimated GFR (MDRD) 55.00, BUN/Creatinine Ratio 36.77, Glucose 107.8 H, Calcium 9.96, Total Bilirubin 0.38 , AST 21.4, ALT 13.8, Alkaline Phosphatase 86.0, Total Protein 6.66, Albumin 3.61, Globulin 3.05, Albumin/Globulin Ratio 1.18 05/08/19 05:26: WBC 7.37, RBC 3.70 L, Hgb 9.8 L, Hct 31.6 L, MCV 85.4, MCH 26.5 L, MCHC 31.0 L, RDW Coeff of Ray 15.9 H, Plt Count 185, Immature Gran % (Auto) 0.4, Neut % (Auto) 57.3, Lymph % (Auto) 33.6, Hudson % (Auto) 6.5, Eos % (Auto) 1.8, Baso % (Auto) 0.4, Immature Gran # (Auto) 0.0, Neut # (Auto) 4.2, Lymph # ( Auto) 2.5, Hudson # (Auto) 0.5, Eos # (Auto) 0.1, Baso # (Auto) 0.0 PLAN: DISCHARGE TO HOME TODAY, 05/08/2019. DIET: HEART HEALTHY ADA 1800 EBONIE DIET ACTIVITY: UP TOLERATED WITH ASSISTANCE AND ASSISTIVE DEVICES WALKER, WHEELCHAIR, LIFT CHAIR, GLUCOMETER, NEBULZIER MACHINE FOLLOW-UP: DR. KUHN / SENAIT TADEO, SUB ACUTE CARE NURSE WEDNESDAY MAY 15, 2019 @ 11:15AM CODE STATUS: DO NOT RESUSCITATE MRS. VOSS IS A&OX3 THIS MORNING. LUNG SOUNDS ARE DIMINISHED. NO SOA NOTED. BOWEL SOUNDS ACTIVE, ABDOMEN SOFT AND NONTENDER. PT REQUIRES STANDBY ASSISTANCE WITH GAITBELT AND WALKER WITH SLOW STEADY GAIT. SHE HAS MANY DME ASSISTIVE DEVICES AVAILABLE TO HER IN HER HOME. ERYTHEMA NOTED TO [facility]. WHILE PATIENT IS CONTINENT OF BOWEL AND BLADDER, SHE EXPERIENCES URINARY DRIBBLING. SHE HAS MET ALL SHORT TERM PHYSICAL THERAPY GOALS. SHE IS EATING WELL, ENCOURAGED GOOD FLUID INTAKE. CURRENT HYDRATION STATUS IS GOOD. I BELIEVE SHE MAY BENEFIT FROM HOME HEALTH PT/OT IF SHE DESIRES. MONICA KUHN M.D. SENAIT TADEO, SUB ACUTE CARE NURSE
--- NOTE | 2019-05-09 11:15 | DS ---
DATE OF SERVICE: 05/08/19 FINAL DIAGNOSIS: GAIT UNSTEADINESS IMPAIRED BALANCE RECURRENT FALLS HYPERTENSION LEFT VENTRICULAR HYPERTROPHY CONGESTIVE HEART FAILURE CORONARY ARTERY DISEASE PERIPHERAL ARTERIAL DISEASE COPD, OXYGEN PRN AT HOME DIABETES MELLITUS CHRONIC KIDNEY DISEASE, STAGE 2 ANEMIA HISTORY OF ATRIAL FIBRILLATION DYSLIPIDEMIA DEMENTIA WEAKNESS, GENERALIZED, CHRONIC CAROTID STENOSIS; RIGHT 50-69% STENOSIS (11/2016) OSTEOPENIA (HIPS) DJD SPINE FORMER SMOKER, QUIT X30 YEARS PARTIAL HYSTERECTOMY LAST VITALS: Temp Pulse Resp BP Pulse Ox 97.9 F 78 16 170/90 H 95 05/08/19 07:11 05/08/19 07:11 05/08/19 07:11 05/08/19 07:11 05/08/19 07:11 DISCHARGE INSTRUCTIONS: DISCHARGE TO HOME TODAY, 05/08/2019.FOLLOW-UP:DR. KUHN / SENAIT TADEO, JESU, , WEDNESDAY MAY 15, 2019 @ 11:15AM. CODE STATUS: DO NOT RESUSCITATE TAKE THESE MEDICATIONS AT HOME: Carvedilol (Coreg) 12.5 mg PO BIDWM JIM Clopidogrel Bisulfate (Plavix) 75 mg PO BEDTIME JIM Diltiazem HCl (Cardizem) 60 mg PO Q12HR JIM Ferrous Sulfate (Ferrous Sulfate) 324 mg PO BID JIM Folic Acid (Folic Acid) 0.5 mg PO BID JIM Furosemide (Lasix Tab) 20 mg PO QDAC PRN Losartan Potassium (Cozaar) 100 mg PO DAILY JIM Memantine (Namenda) 10 mg PO BEDTIME JIM Metformin HCl (Glucophage) 1,000 mg PO BIDWM JIM Nitroglycerin (Nitrostat) 0.4 mg SL Q5MIN X 3 DOSES PRN ALLERGIES: No Known Allergies Allergy (Verified 01/22/18 15:57) DISCONTINUED MEDICATIONS: SIMVASTATIN NEW PRESCRIPTIONS: DILTIAZEM 60MG PO Q12H LOSARTAN 100MG PO DAILY SMOKING: FORMER SMOKER, QUIT 30 YEARS AGO DISEASE SPECIFIC EDUCATION: GENERALIZED WEAKNESS, CHRONIC FOLLOW-UPS CONGESTIVE HEART FAILURE HEART HEALTHY DIET FOLLOW-UPS DIET: HEART HEALTHY ADA 1800 EBONIE DIET ACTIVITY: UP TOLERATED WITH ASSISTANCE AND ASSISTIVE DEVICES WALKER, WHEELCHAIR, LIFT CHAIR, GLUCOMETER, NEBULZIER MACHINE HOSPITAL COURSE: This is an 88 year old white female who was initially a direct admit from our office for weakness,recent fall and dehydration. She was placed in acute care and was started on IV fluids. She has no fractures. She was then admitted to swing bed for physical and occupational therapy for strengthening, gait unsteadiness and impaired balance. As she does have some elevation in her blood pressure during her stay we did increase her Cardizem 60mg BID along with Cozaar 100mg daily. Since then blood pressure has remained well controlled. She does have a history of elevated blood pressure while she is in the hospital and then it tends to bottom out after she settles down once she gets back home. She has declined to do PT and OT at home. She has met her goals here. She still has some weakness but given her age I feel that this is normal. Labs have all been stable. She does have chronic anemia. HGB is stable at 9.8, kidney function has improved, BUN 35, creatinine 0.96, glucose has been well controlled. She will go home, she lives with her brother so she is not by herself. She has walker and they have lift chair and they have all the necessary equipment and assistive devices that they need. We will followup with her in the office later next week. TIME SPENT: More than 60 minutes. SUZY
--- NOTE | 2019-05-09 13:24 | PN ---
DATE OF SERVICE: 05/07/19 SUBJECTIVE: The patient was seen and examined with Nurse Practitioner. The patient's condition has improved. She is in the swing bed. She is walking with help. Her cardiovascular status and hgb and hct is stable. TIME SPENT: More than 30 minutes. Plan and coordination of the patient's care discussed in the presence of nurse. SUZY
--- NOTE | 2019-05-09 13:26 | PN ---
DATE OF SERVICE: 05/08/19 SUBJECTIVE: The patient was seen and examined with Nurse Practitioner. The patient's condition has improved remarkably. She is up and about with help. Cardiovascular status stable. TIME SPENT: More than 30 minutes. Plan and coordination of the patient's care discussed in the presence of nurse. SUZY
--- NOTE | 2019-05-09 13:28 | PN ---
08/06/: Intermediate 08/07: Intermediate 08: Intermediate 08/06/12: Intermediate 05/03/19: Intermediate 05/04/19: Intermediate 05/05/19: Intermediate 05/06/19: Intermediate 05/07/19: Intermediate 05/08/19: D as in discharge MTDD
== END 2019-05-08 13:15 | disposition home health service (06) | DRG 92 ==
LOC: MEDSURG B 09:57
PROVIDERS: ADMIT Internal Medicine; ATTEND Internal Medicine
DX: R26.81 Unsteadiness on feet (principal); I50.1 Left ventricular failure, unspecified; R53.1 Weakness; I25.10 Atherosclerotic heart disease of native coronary artery without angina pectoris; I73.9 Peripheral vascular disease, unspecified; I50.9 Heart failure, unspecified; I10 Essential (primary) hypertension; J44.9 Chronic obstructive pulmonary disease, unspecified; D64.9 Anemia, unspecified; E11.9 Type 2 diabetes mellitus without complications; E78.5 Hyperlipidemia, unspecified; N18.2 Chronic kidney disease, stage 2 (mild); F03.90 Unspecified dementia, unspecified severity, without behavioral disturbance, psychotic disturbance, mood disturbance, and anxiety; M85.88 Other specified disorders of bone density and structure, other site; M47.9 Spondylosis, unspecified; Z91.81 History of falling
CPT/HCPCS: 36415; 80053; 85025; 97802

== ENCOUNTER 2019-08-16 01:40 | Inpatient (IN) ==
[2019-08-16] MEDS ORDERED: LASIX IVP STA (02:09)
[2019-08-16] MEDS ORDERED: DUONEB NEB STA (02:11)
[2019-08-16] MEDS ORDERED: SOLU-MEDROL 40 MG IVP STA (02:11)
--- NOTE | 2019-08-16 03:23 | CT ---
EXAM: CT chest without intravenous contrast 08/16/2019. Sagittal and coronal reformatted images obt ained HISTORY: Dyspnea COMPARISON: 04/25/2019 FINDINGS: Moderate cardiomegaly. No pericardial effusion. Atherosclerotic vascular disease. Emphysematous changes. There is bronchial wall thickening may represent bronchitis/bronchiolitis. Atelectasis within dependent aspect of both lungs. Trace bilateral pleural effusions. Limited views of the upper abdomen show no acute abnormality. No acute osseous abnormality. IMPRESSION: 1. Cardiomegaly. 2. Diffuse bronchial wall thickening suggesting bronchitis/bronchiolitis. 3. Emphysema. 4. Bilateral dependent atelectasis 5. Trace bilateral pleural effusions. 6. Atherosclerotic vascular disease.
--- NOTE | 2019-08-16 03:24 | ED.PDOC ---
General ED Provider: Dr. EVELIO ROBINS Chief Complaint: Shortness of Air Stated Complaint: im sob Time Seen by Physician: 03:30 Mode of Arrival: Walk-In Information Source: Patient and Family Primary Care Provider: MONICA KUHN Nursing and Triage Documentation Reviewed and Agree: Yes Does patient meet sepsis criteria?: No System Inflammatory Response Syndrome: Not Applicable Sepsis Protocol: For patient's 13 years and over: Temp is 96.8 and below OR 101 and greater Pulse >90 BPM Resp >20/minute Acutely Altered Mental Status Are patient's symptoms suggestive of a new infection, such as: -Pneumonia -Skin, Soft Tissue -Endocarditis -UTI -Bone, Joint Infection -Implantable Device -Acute Abdominal Infection -Wound Infection -Meningitis -Blood Stream Catheter Infection -Unknown Respiratory Complaint Exam Shortness of Air Complaint/Exam Onset/Duration: 24 hrs Symptoms Are: Still present Initial Severity: Mild Current Severity: Moderate Character: Reports Dyspnea at rest and Orthopnea Associated Signs and Symptoms: Reports Cough, Wheezing and Labored breathing Recent Stress Test: No Recent Echo/LV Function: No Respiratory Distress: None Stridor Present: No Tracheal Deviation: No Subcutaneous Emphysema: No Accessory Muscle Use: No Retractions: Not Present Diminished Breath Sounds: No Prolonged Expiratory Phase: No Unable to Speak Full Sentences: No Fatigue: No Leg Swelling: No Casie's Sign Present: No Grunting Respirations: No Kussmaul Respirations: No Quality Indicator For Non-Traumatic Chest Pain/Syncope: EKG Performed Review of Systems Review Of Systems Constitutional: Reports No symptoms Eyes: Reports No symptoms Ears, Nose, Mouth, Throat: Reports No symptoms Respiratory: Reports Orthopnea and Short of air Cardiac: Reports No symptoms GI: Reports No symptoms : Reports No symptoms Musculoskeletal: Reports No symptoms Skin: Reports No symptoms Neurological: Reports No symptoms Endocrine: Reports No symptoms Hematologic/Lymphatic: Reports No symptoms All Other Systems: Reviewed and Negative [facility] Social History Smoking and tobacco status: Never smoker History of recent travel: No Female Reproductive History Menstrual Hx Hysterectomy: Yes Hx Tubal Ligation: No Physical Exam Physical Exam Appearance: Well-appearing Ill-appearing: None Pain Distress: None Eyes: DONNA, EOMI and Conjunctiva clear ENT: Ears normal Neck: Supple Respiratory: Crackles, Rhonchi and Wheezes Cardiovascular: RRR GI/: Soft Musculoskeletal: Normal strength Skin: Warm Neurological: Sensation intact Psychiatric: Affect appropriate Interpretation Radiology Interpretation Radiology Interpretation By: Radiologist Radiology Results: Positive Exam Interpreted: CT Scan EKG Interpretation Time of EKG #1: 03:29 Rate: Normal Rhythm: Sinus Ectopy: None [place]: NL ST Segment: Normal Interpretation: nsr Re-Evaluation Re-Evaluation Time of Re-Evaluation: 03:29 Status: Improved Vital Signs Stable: Yes Pain Level: 0 Appearance: NAD Lungs: Clear Skin: Warm and Dry Neuro: Alert and Oriented X3 CV: RRR Critical Care Note Critical Care Note Total Time (mins): 30 Course Course Hematology/Chemistry: 08/16/19 02:28 08/16/19 02:28 Orders, Labs, Meds: Lab Review 08/16/19 08/16/19 08/16/19 02:09 02:28 02:28 WBC 11.00 H RBC 3.95 L Hgb 10.7 L Hct 35.2 L MCV 89.1 MCH 27.1 MCHC 30.4 L RDW Coeff of Ray 16.2 H Plt Count 184 Immature Gran % (Auto) 0.5 Neut % (Auto) 75.7 Lymph % (Auto) 16.2 [place] % (Auto) 6.5 Eos % (Auto) 0.8 Baso % (Auto) 0.3 Immature Gran # (Auto) 0.1 Neut # (Auto) 8.3 H Lymph # (Auto) 1.8 [place] # (Auto) 0.7 Eos # (Auto) 0.1 Baso # (Auto) 0.0 Puncture Site Rbrach O2 Saturation 92.0 L ABG pH 7.382 ABG pCO2 35.9 ABG pO2 66.0 L ABG HCO3 21.3 L ABG Total CO2 22 ABG Base Excess -4 L Prashant Test + FiO2 % 21.0 Sodium 142.1 Potassium 4.14 Chloride 106.3 Carbon Dioxide 25.5 Anion Gap 14.44 BUN 17.1 H Creatinine 0.77 Estimated GFR (MDRD) 71.00 BUN/Creatinine Ratio 22.20 Glucose 108.0 H Calcium 10.32 H Total Bilirubin 0.60 AST 21.8 ALT 14.2 Alkaline Phosphatase 114.5 NT-Pro-B Natriuret Pep 9120.000 H Total Protein 7.40 Albumin 4.08 Globulin 3.32 Albumin/Globulin Ratio 1.22 Orders Category Date Time Status ABG DRAW REQUEST Stat CARDIO 08/16/19 02:10 Completed EKG-(ED ONLY) Stat CARDIO 08/16/19 02:09 Completed NEBULIZER TREATMENT Stat CARDIO 08/16/19 02:12 Completed ED WEB MARKETING SPECIALIST APPLIED .ONCE EMERGENCY 08/16/19 02:09 Active ED IV/MEDIPORT/POWERPORT .ONCE EMERGENCY 08/16/19 02:10 Active ABG Stat LAB 08/16/19 02:09 Completed CBC W/ AUTO DIFF Stat LAB 08/16/19 02:28 Completed COMPREHENSIVE METABOLIC PANEL Stat LAB 08/16/19 02:28 Completed NT-PROBNP Stat LAB 08/16/19 02:28 Completed 0.9 % Sodium Chloride [Saline Flush] MEDS 08/16/19 02:09 Active 1 syr IVF PRN PRN Furosemide [Lasix] MEDS 08/16/19 02:09 Discontinued 40 mg IVP ONCE STA Ipratropium/Albuterol Neb [Duoneb] MEDS 08/16/19 02:11 Discontinued 3 ml NEB ONCE STA Methylprednisolone Sod Succ/Pf [Solu-Medrol 40 mg] MEDS 08/16/19 02:11 Discontinued [address]P ONCE [address] CHEST W/O CONTRAST Stat RADS 08/16/19 02:11 Completed Medications Generic Name Dose Route Start Last Admin Trade Name Freq PRN Reason Stop Dose Admin Sodium Chloride 1 syr 08/16/19 02:09 08/16/19 03:14 Saline Flush IVF 1 syr PRN PRN Administration To flush IV Discontinued Medications Generic Name Dose Route Start Last Admin Trade Name Freq PRN Reason Stop Dose Admin Albuterol/Ipratropium 3 ml 08/16/19 02:11 08/16/19 02:10 Duoneb NEB 08/16/19 02:12 3 ml ONCE STA Administration Furosemide 40 mg 08/16/19 02:09 08/16/19 03:11 Lasix IVP 08/16/19 02:10 40 mg ONCE STA Administration Methylprednisolone Sodium Succinate 40 mg 08/16/19 02:11 08/16/19 03:08 Solu-Medrol 40 Mg IVP 08/16/19 02:12 40 mg ONCE STA Administration Vital Signs: Temp Pulse Resp BP Pulse Ox 08/16/19 01:42 99.5 F 85 26 H 203/83 H 93 L Discharge Plan Discharge Patient Disposition: ADMITTED INPATIENT Discharge Problem: Congestive heart failure Prescriptions: No Action metformin [Glucophage] 1,000 MG tablet 1,000 mg PO BIDWM RF: 0 nitroglycerin [Nitrostat] 0.4 MG tablet, sublingual 0.4 mg sublingual DIRECTED PRN (Reason: Angina) RF: 0 furosemide 20 MG tablet 20 mg PO QDAC PRN (Reason: Blood Pressure) RF: 0 carvedilol 12.5 MG tablet 12.5 mg PO BIDWM RF: 0 clopidogrel [Plavix] 75 MG tablet 75 mg PO BEDTIME RF: 0 losartan 100 MG tablet 50 mg PO BID 30 Days Qty: 30 RF: 0 diltiazem HCl 60 MG tablet 60 mg PO Q12HR 30 Days Qty: 60 RF: 0 memantine [Namenda] 10 MG tablet 10 mg PO BEDTIME RF: 0 folic acid 400 mcg Tablet 0.4 mg PO BID RF: 0 ascorbic acid (vitamin C) [Vitamin C] 500 mg Tablet 500 mg PO BID RF: 0 ferrous sulfate [iron] 325 mg (65 mg iron) Tablet 325 mg PO BID RF: 0 budesonide 0.5 mg/2 mL Suspension For Nebulization 0.5 mg INHALATION BID PRN (Reason: Shortness Of Breath) RF: 0 B-complex with vitamin C [Super B/C] Capsule 1 cap PO DAILY RF: 0 Brovana 15 mcg/2 mL Solution For Nebulization 2 ml INHALATION BID PRN (Reason: Shortness Of Breath) RF: 0 ED Provider: EVELIO ROBINS Condition: Fair
[2019-08-16] MEDS ORDERED: NITROSTAT SL PRN (03:36)
[2019-08-16] MEDS ORDERED: PULMICORT 0.5 MG/2 ML NEB PRN (03:36)
[2019-08-16 04:57] VITALS: BMI 19.4
[2019-08-16] MEDS ORDERED: PERFOROMIST NEB PRN (06:00)
[2019-08-16] MEDS: ROCEPHIN 1 GM/50 ML D5W 1 GM/50 ML BAG IV SCH ×2 (06:13→17:04)
[2019-08-16] MEDS: COZAAR PO SCH ×2 (08:58→21:23)
[2019-08-16] MEDS ORDERED: PULMICORT 0.5 MG/2 ML NEB SCH (09:00)
[2019-08-16] MEDS: COREG PO SCH ×2 (09:00→16:55)
[2019-08-16] MEDS ORDERED: FERROUS SULFATE PO SCH (09:00)
[2019-08-16] MEDS: CARDIZEM PO SCH ×2 (09:00→21:25)
[2019-08-16] MEDS: LASIX IVP SCH (09:01)
[2019-08-16] MEDS: FERROUS SULFATE PO SCH ×2 (09:01→16:54)
[2019-08-16] MEDS: LOVENOX SUBCUT SCH (09:02)
[2019-08-16] MEDS: GLUCOPHAGE PO SCH (16:54)
[2019-08-16] MEDS: PULMICORT 0.5 MG/2 ML NEB SCH (17:00)
[2019-08-16] MEDS ORDERED: NAMENDA PO SCH (21:00)
[2019-08-16] MEDS: PLAVIX PO SCH (21:23)
[2019-08-16] MEDS: NAMENDA PO SCH (21:25)
[2019-08-16] MEDS: CALMOSEPTINE OINTMENT TP SCH (21:30)
[2019-08-17] MEDS: PULMICORT 0.5 MG/2 ML NEB SCH ×2 (05:05→16:58)
[2019-08-17] MEDS: FERROUS SULFATE PO SCH ×2 (06:11→16:49)
[2019-08-17] MEDS: LASIX IVP SCH (08:13)
[2019-08-17] MEDS: COZAAR PO SCH ×2 (08:14→21:15)
[2019-08-17] MEDS: COREG PO SCH ×2 (08:15→16:50)
[2019-08-17] MEDS: CALMOSEPTINE OINTMENT TP SCH ×3 (08:15→21:18)
[2019-08-17] MEDS: GLUCOPHAGE PO SCH ×2 (08:15→16:49)
[2019-08-17] MEDS: CARDIZEM PO SCH ×2 (08:15→21:16)
[2019-08-17] MEDS: NAMENDA PO SCH ×2 (08:15→21:15)
[2019-08-17] MEDS: LOVENOX SUBCUT SCH (08:16)
[2019-08-17] MEDS: ROCEPHIN 1 GM/50 ML D5W 1 GM/50 ML BAG IV SCH (08:23)
[2019-08-17] MEDS: PLAVIX PO SCH (21:14)
[2019-08-18] MEDS: PULMICORT 0.5 MG/2 ML NEB SCH ×2 (04:35→17:59)
[2019-08-18] MEDS: FERROUS SULFATE PO SCH ×2 (05:54→16:56)
[2019-08-18] MEDS ORDERED: DECADRON 4 MG/ML SDV IM STA (08:22)
--- NOTE | 2019-08-18 08:30 | PCM.PROG ---
Attending Provider: ATTENDING PROVIDER: Dr. MONICA KUHN This patient is seen with Dee Miller, Nurse Practitioner. DATE OF SERVICE: 08/18/19 SUBJECTIVE: This 89 year old /WHITE F was hospitalized 08/16/19. The patient is resting comfortably. Breathing has improved. She is still wheezing off and on at times. Having good urinary output. REVIEW OF SYSTEMS: CONSTITUTIONAL: No night sweats. No fatigue, malaise, lethargy. No fever or chills. Weakness. HEENT: Eyes: No visual changes. No eye pain. No eye discharge. ENT: No runny nose. No epistaxis. No sinus pain. No odynophagia. No congestion. RESPIRATORY: Cough, no congestion. No hemoptysis. No shortness of breath. CARDIOVASCULAR: No angina symptoms. No CHF symptoms. No atypical chest pain for CAD. No palpitations. No orthopnea.. GASTROINTESTINAL: No abdominal pain. No nausea or vomiting. No diarrhea or constipation. No hematemesis. No hematochezia. GENITOURINARY: No urgency. No frequency. No dysuria. No hematuria. No obstructive symptoms. No discharge. No pain. No significant abnormal bleeding. MUSCULOSKELETAL: No musculoskeletal pain; no joint swelling. NEUROLOGICAL: Awake, alert, oriented to time, place and person. No headache. No neck pain. No syncope. No seizures. No dizziness. PSYCHIATRIC: Not anxious. No depression. No suicidal thoughts. No homicidal thoughts. SKIN: No rash. No lesions. No wounds. ENDOCRINE: No unexplained weight loss. No weight gain. HEMATOLOGIC/LYMPHATIC: No anemia. No purpura. No petechiae. No prolonged or excessive bleeding. No palpable lymph nodes. PHYSICAL EXAMINATION: GENERAL: The patient is awake, alert and oriented, lying in bed in no distress. VITAL SIGNS: Temperature 98.0 F, Pulse 67, Respiratory Rate 18, BP 161/67, Pulse Ox 94% HEENT: Head normocephalic, atraumatic. Eyes: Extraocular muscles are intact. Pupils are equal, round and reactive to light and accommodation. Ears: No lesions. Nose appeared normal. Throat: No exudate or erythema. NECK: Supple. No JVD, no carotid bruit. No lymphadenopathy or thyromegaly. LUNGS: Diminished breath sounds. Clear to auscultation. Percussion note normal. Chest symmetrical. HEART: S1, S2, no S3. No murmurs. No cyanosis or clubbing. No ascites. Pulses: Dorsalis pedis and posterior tibial pulses +1 to +2 both sides. ABDOMEN: Soft. Non-tender. Bowel sounds active. No CVA tenderness. No mass felt. EXTREMITIES: No edema. Full range of motion of all extremities, equal. NEUROLOGIC: No focal deficit. Cranial nerves II through XII are grossly intact. No headache, no double vision or headache. SKIN: Not dry. Intact. Turgor-normal. LYMPHATIC: No palpable lymph nodes/no lymphedema. MUSCULOSKELETAL: Normal joints with no swelling. Muscle tone is normal. LAB REVIEW: 08/18/19 04:15 08/18/19 04:15 08/18/19 04:15: Sodium 137.6, Potassium 4.48, Chloride 96.7 L, Carbon Dioxide 32.2 H, Anion Gap 13.18, BUN 27.9 H, Creatinine 1.18, Estimated GFR (MDRD) 43.00, BUN/Creatinine Ratio 23.64, Glucose 116.0 H, Calcium 10.74 H, Total Bilirubin 0.45, AST 27.5, ALT 14.2, Alkaline Phosphatase 118.6, Total Protein 7.60, Albumin 4.06, Globulin 3.54, Albumin/Globulin Ratio 1.14 08/18/19 04:15: WBC 9.47, RBC 4.18 L, Hgb 11.3 L, Hct 36.7 L, MCV 87.8, MCH 27.0, MCHC 30.8 L, RDW Coeff of Ray 16.0 H, Plt Count 248, Immature Gran % (Auto) 0.3, Neut % (Auto) 65.5, Lymph % (Auto) 27.5, [place] % (Auto) 5.6, Eos % (Auto) 0.7, Baso % (Auto) 0.4, Immature Gran # (Auto) 0.0, Neut # (Auto) 6.2, Lymph # (Auto) 2.6, [place] # (Auto) 0.5, Eos # (Auto) 0.1, Baso # (Auto) 0.0 ASSESSMENT: Please see below. 1. CHF, improved 2. Acute bronchitis 3. COPD 4. Hypertension PLAN: 1. Discontinue IV Lasix after today 2. 1/2cc Decadron IM today 3. Start PO Lasix at 20mg tomorrow. Plan and coordination of the patient's care discussed in the presence of Real Estate Manager and nurse. SCRIBED BY: TC VERA Polishing Machine Operator scribed while in presence of service performed by Dr. Kuhn/Dee Miller APRN on 08/18/19 ([id number])
[2019-08-18] MEDS: CALMOSEPTINE OINTMENT TP SCH ×4 (09:00→20:07)
[2019-08-18] MEDS: ROCEPHIN 1 GM/50 ML D5W 1 GM/50 ML BAG IV SCH (09:42)
[2019-08-18] MEDS: GLUCOPHAGE PO SCH ×2 (09:42→16:57)
[2019-08-18] MEDS: CARDIZEM PO SCH ×2 (09:43→20:04)
[2019-08-18] MEDS: NAMENDA PO SCH ×2 (09:43→20:04)
[2019-08-18] MEDS: COREG PO SCH ×2 (09:43→16:57)
[2019-08-18] MEDS: COZAAR PO SCH ×2 (09:43→20:04)
[2019-08-18] MEDS: LOVENOX SUBCUT SCH (09:44)
[2019-08-18] MEDS: LASIX IVP SCH (09:44)
[2019-08-18] MEDS: PLAVIX PO SCH (20:04)
[2019-08-18 21:26] VITALS: TEMP 97.9
[2019-08-19] MEDS: PULMICORT 0.5 MG/2 ML NEB SCH (04:50)
[2019-08-19] MEDS: FERROUS SULFATE PO SCH (05:31)
[2019-08-19 05:55] VITALS: BP 140/80
[2019-08-19] MEDS ORDERED: LASIX TAB PO SCH (06:30)
--- NOTE | 2019-08-19 09:18 | PCM.PROG ---
Attending Provider: ATTENDING PROVIDER: Dr. MONICA KUHN This patient is seen with Dee Miller, Nurse Practitioner. DATE OF SERVICE: 08/19/19 SUBJECTIVE: This 89 year old /WHITE F was hospitalized 08/16/19. The patient is resting comfortably. Cough improved has been up and about on her own. Stated that she is ready to go home. No shortness of breath. REVIEW OF SYSTEMS: CONSTITUTIONAL: No night sweats. No fatigue, malaise, lethargy. No fever or chills. Weakness. HEENT: Eyes: No visual changes. No eye pain. No eye discharge. ENT: No runny nose. No epistaxis. No sinus pain. No odynophagia. No congestion. RESPIRATORY: Cough, no congestion. No hemoptysis. No shortness of breath. CARDIOVASCULAR: No angina symptoms. No CHF symptoms. No atypical chest pain for CAD. No palpitations. No orthopnea.. GASTROINTESTINAL: No abdominal pain. No nausea or vomiting. No diarrhea or constipation. No hematemesis. No hematochezia. GENITOURINARY: No urgency. No frequency. No dysuria. No hematuria. No obstructive symptoms. No discharge. No pain. No significant abnormal bleeding. MUSCULOSKELETAL: No musculoskeletal pain; no joint swelling. NEUROLOGICAL: Awake, alert, oriented to time, place and person. No headache. No neck pain. No syncope. No seizures. No dizziness. PSYCHIATRIC: Not anxious. No depression. No suicidal thoughts. No homicidal thoughts. SKIN: No rash. No lesions. No wounds. ENDOCRINE: No unexplained weight loss. No weight gain. HEMATOLOGIC/LYMPHATIC: No anemia. No purpura. No petechiae. No prolonged or excessive bleeding. No palpable lymph nodes. PHYSICAL EXAMINATION: GENERAL: The patient is awake, alert and oriented, lying in bed in no distress. VITAL SIGNS: Temperature 97.9 F, Pulse 75, Respiratory Rate 18, BP 140/80, Pulse Ox 96% HEENT: Head normocephalic, atraumatic. Eyes: Extraocular muscles are intact. Pupils are equal, round and reactive to light and accommodation. Ears: No lesions. Nose appeared normal. Throat: No exudate or erythema. NECK: Supple. No JVD, no carotid bruit. No lymphadenopathy or thyromegaly. LUNGS: Diminished breath sounds. Clear to auscultation. Percussion note normal. Chest symmetrical. HEART: S1, S2, no S3. No murmurs. No cyanosis or clubbing. No ascites. Pulses: Dorsalis pedis and posterior tibial pulses +1 to +2 both sides. ABDOMEN: Soft. Non-tender. Bowel sounds active. No CVA tenderness. No mass felt. EXTREMITIES: No edema. Full range of motion of all extremities, equal. NEUROLOGIC: No focal deficit. Cranial nerves II through XII are grossly intact. No headache, no double vision or headache. SKIN: Not dry. Intact. Turgor-normal. LYMPHATIC: No palpable lymph nodes/no lymphedema. MUSCULOSKELETAL: Normal joints with no swelling. Muscle tone is normal. LAB REVIEW: 08/19/19 05:30 08/19/19 05:30 08/19/19 05:30: Sodium 137.9, Potassium 5.06, Chloride 93.9 L, Carbon Dioxide 32.0 H, Anion Gap 17.06, BUN 33.7 H, Creatinine 0.94, Estimated GFR (MDRD) 56.00 , BUN/Creatinine Ratio 35.85, Glucose 103.0, Calcium 10.87 H, Total Bilirubin 0.72, AST 32.7, ALT 17.8, Alkaline Phosphatase 107.6, Total Protein 8.35 H, Albumin 4.40, Globulin 3.95, Albumin/Globulin Ratio 1.11 08/19/19 05:30: WBC 9.21, RBC 4.41, Hgb 11.9 L, Hct 38.6, MCV 87.5, MCH 27.0, MCHC 30.8 L, RDW Coeff of Ray 15.9 H, Plt Count 270, Immature Gran % (Auto) 0.3, Neut % (Auto) 64.3, Lymph % (Auto) 30.3, [place] % (Auto) 4.8, Eos % (Auto) 0.1, Ba so % (Auto) 0.2, Immature Gran # (Auto) 0.0, Neut # (Auto) 5.9, Lymph # (Auto) 2.8, [place] # (Auto) 0.4, Eos # (Auto) 0.0, Baso # (Auto) 0.0 ASSESSMENT: Please see below. 1. CHF, improved 2. Acute bronchitis 3. COPD 4. Hypertension PLAN: 1. Keflex 500mg TID for 7 days 2. Prednisone 10mg BID for 5 days 3. Lasix three times a week 4. Use NEBS three times a day The patient clinically has improved. CHF discussed in detail. Plan and coordination of the patient's care discussed in the presence of Budget Analyst and nurse. SCRIBED BY: Mika HASSANist scribed while in presence of service performed by Dr. Kuhn/Dee Miller APRN on 08/19/19 ([id number])
[2019-08-19] MEDS: CARDIZEM PO SCH (09:24)
[2019-08-19] MEDS: ROCEPHIN 1 GM/50 ML D5W 1 GM/50 ML BAG IV SCH (09:24)
[2019-08-19] MEDS: COREG PO SCH (09:25)
[2019-08-19] MEDS: NAMENDA PO SCH (09:25)
[2019-08-19] MEDS: COZAAR PO SCH (09:25)
[2019-08-19] MEDS: GLUCOPHAGE PO SCH (09:25)
[2019-08-19] MEDS: CALMOSEPTINE OINTMENT TP SCH (09:26)
[2019-08-19] MEDS: LOVENOX SUBCUT SCH (09:27)
--- NOTE | 2019-08-19 11:46 | CM.DICTOOL ---
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 DEMENTIA ECHOCARDIOGRAM 04/2019 NORMAL WITH LVEF 54% PFT: 2016 INSUFFICIENT DATA HOLTER: 08/2018 SINUS RHYTHM (WITH PAC, PVC, SHORT PAT) HISTORY OF SMOKING HYSTERECTOMY, PARTIAL LAST VITALS Temp Pulse Resp BP Pulse Ox 97.9 F 75 18 140/80 96 08/19/19 05:54 08/19/19 05:54 08/19/19 05:54 08/19/19 05:54 08/19/19 09:56 TAKE THESE MEDICATIONS AT HOME Budesonide (Pulmicort 0.5 Mg/2 Ml) 0.5 mg NEB RTBID [facility] Last Admin: 08/19/19 04:50 Dose: 0.5 mg Documented by: Carvedilol (Coreg) 12.5 mg PO BIDWM [facility] Last Admin: 08/19/19 09:25 Dose: 12.5 mg Documented by: Clopidogrel Bisulfate (Plavix) 75 mg PO BEDTIME [facility] Last Admin: 08/18/19 20:04 Dose: 75 mg Documented by: Diltiazem HCl (Cardizem) 60 mg PO Q12HR [facility] Last Admin: 08/19/19 09:24 Dose: 60 mg Documented by: : Ferrous Sulfate (Ferrous Sulfate) 324 mg PO BIDAC [facility] Last Admin: 08/19/19 05:31 Dose: 324 mg Documented by: Aformoterol (BROVANA) 2 ML NEB RTBID PRN PRN Reason: BRONCHOSPASM Furosemide (Lasix Tab) 20 mg PO 3 DAYS WEEKLY [facility] Last Admin: 08/19/19 05:32 Dose: 20 mg Documented by: Losartan Potassium (Cozaar) 50 mg PO BID [facility] Last Admin: 08/19/19 09:25 Dose: 50 mg Documented by: Memantine (Namenda) 10 mg PO BID [facility] Last Admin: 08/19/19 09:25 Dose: 10 mg Documented by: Metformin HCl (Glucophage) 1,000 mg PO BIDWM [facility] Last Admin: 08/19/19 09:25 Dose: 1,000 mg Documented by: Nitroglycerin (Nitrostat) 0.4 mg SL DIRECTED PRN PRN Reason: Chest Pain FOLIC ACID 0.4 MG PO BID B-COMPLEX WITH VITAMIN C 1 CAP DAILY ASCORBIC ACID 500 MG PO BID PREDNISONE 10 MG BID FOR 5 DAYS KEFLEX 500 MG TID FOR 7 DAYS ALLERGIES No Known Allergies Allergy (Verified 08/16/19 01:51) DISCONTINUED MEDICATIONS NONE NEW PRESCRIPTIONS: KEFLEX 500 MG TID FOR 7 DAYS PREDNISONE 10 MG BID FOR 5 DAYS TAKE WITH FOOD SMOKING: NOT APPLICABLE DISEASE SPECIFIC EDUCATION: NUTRITION POSITION CHANGES MEDICATIONS; INCLUDING LASIX AT LEAST 3 TIMES A WEEK NEBULIZER TREATMENTS ORAL STEROIDS AND RISK OF GI IRRITATION, BONE DEMINERALIZATION LAB REVIEW: 08/19/19 05:30 08/19/19 05:30 08/19/19 05:30: Sodium 137.9, Potassium 5.06, Chloride 93.9 L, Carbon Dioxide 32.0 H, Anion Gap 17.06, BUN 33.7 H, Creatinine 0.94, Estimated GFR (MDRD) 56.00, BUN/Creatinine Ratio 35.85, Glucose 103.0, Calcium 10.87 H, Total Bilirubin 0.72, AST 32.7, ALT 17.8, Alkaline Phosphatase 107.6, Total Protein 8.35 H, Albumin 4.40, Globulin 3.95, Albumin/Globulin Ratio 1.11 08/19/19 05:30: WBC 9.21, RBC 4.41, Hgb 11.9 L, Hct 38.6, MCV 87.5, MCH 27.0, MCHC 30.8 L, RDW Coeff of Ray 15.9 H, Plt Count 270, Immature Gran % (Auto) 0.3, Neut % (Auto) 64.3, Lymph % (Auto) 30.3, Rolette % (Auto) 4.8, Eos % (Auto) 0.1, Baso % (Auto) 0.2, Immature Gran # (Auto) 0.0, Neut # (Auto) 5.9, Lymph # (Auto) 2.8, Rolette # (Auto) 0.4, Eos # (Auto) 0.0, Baso # (Auto) 0.0 IMAGE REVIEW: DISCHARGE HOME WITH THE BROTHER, TOYA VAUGHAN DIET: RESUME DIET TOLERATED, ENCOURAGED TO DRINK NUTRITIONAL SUPPLEMENT AT LEAST 2 TIMES DAILY IN ADDITION TO MEALS ACTIVITY: RESUME TOLERATED FREQUENT POSITION CHANGES ENCOURAGED ELEVATE LOWER EXTREMITIES WHEN SITTING CONTINUE NEBULIZER PULMICORT NEBULIZER TREATMENTS TWICE A DAY CONTINUE BROVANA NEBULIZER TREATMENTS TWICE A DAY NEEDED CONTINUE OXYGEN USE AT 2 LITERS AT BEDTIME AND NEEDED RESUME [facility] FOR NURSING VISITS; CARDIOPULMONARY ASSESSMENT, D ECUBITUS ULCER RESUME [facility] FOR PHYSICAL THERAPY AN APPOINTMENT IS SCHEDULED ON August AT [address] KUHN/SENAIT TADEO APRN CODE STATUS: DNR MS. VOSS IS ALERT AND ORIENTED X 3. SHE IS INDEPENDENT WITH FEEDING, BUT REQUIRES ENCOURAGEMENT TO EAT. MEAL INTAKES ARE 25-75% AND DEPENDS ON THE FOOD OFFERINGS. SHE DOES ENJOY NUTRITIONAL SUPPLEMENTS. SHE IS PARTIALLY DEPENDENT FOR BATHING AND DRESSING. MS. VOSS ALSO REQUIRES ASSISTANCE OF ONE STAFF MEMBER FOR TRANSFERS AND AMBULATION IN THE ROOM. SHE UTILIZES A ROLLING WALKER FOR STABILITY WHEN AMBULATING. MS. VOSS LIVES AT HOME WITH HER BROTHER, TOYA. SHE REPORTS HE COOKS, GIVES HER MEDICATIONS AND TAKES HER FOR APPOINTMENTS. DME AVAILABLE FOR USE IN THE HOME INCLUDES A WALKER, LIFT CHAIR, WHEELCHAIR, BSC, OXYGEN AND A NEBULIZER. COLOR IS PALE, SHE IS THIN IN APPEARANCE. A STAGE II DECUBITUS IS NOTED TO THE COCCYX; THE AREA IS CLEAN AND DRY TODAY. MS. VOSS IS CONTINENT OF BOWEL AND BLADDER. SHE REPORTS URGENCY AND DRIBBLING WITH URINATION AND WEARS DEPENDS UNDERGARMENTS. MD SENAIT HUFFMAN APRN
--- NOTE | 2019-08-19 13:34 | PN ---
DATE OF SERVICE: 08/18/19 SUBJECTIVE: The patient was seen and examined with the Nurse Practitioner. The patient's CHF practically has resolved. Her problem is not taking Lasix because she has to go to the bathroom. Besides that she is also noncompliant of other medications. CONDITION: Stable. TIME SPENT: More than 30 minutes. Plan and coordination of the patient's care discussed in the presence of nurse. SUZY
--- NOTE | 2019-08-20 09:36 | DS ---
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 CONTINUE NEBULIZER PULMICORT NEBULIZER TREATMENTS TWICE A DAY CONTINUE BROVANA NEBULIZER TREATMENTS TWICE A DAY NEEDED. CONTINUE OXYGEN USE AT 2 LITERS AT BEDTIME AND NEEDED. RESUME [facility] FOR NURSING VISITS; CARDIOPULMONARY ASSESSMENT, DECUBITUS ULCER. RESUME [facility] FOR PHYSICAL THERAPY. AN APPOINTMENT IS SCHEDULED ON August AT [address] KUHN/SENAIT TADEO APRN. CODE STATUS: DNR. TAKE THESE MEDICATIONS AT HOME: Budesonide (Pulmicort 0.5 Mg/2 Ml) 0.5 mg NEB RTBID [facility] Carvedilol (Coreg) 12.5 mg PO BIDWM [facility] Clopidogrel Bisulfate (Plavix) 75 mg PO BEDTIME [facility] Diltiazem HCl (Cardizem) 60 mg PO Q12HR [facility] Ferrous Sulfate (Ferrous Sulfate) 324 mg PO BIDAC [facility] Aformoterol (BROVANA) 2 ML NEB RTBID PRN Furosemide (Lasix Tab) 20 mg PO 3 DAYS WEEKLY [facility] Losartan Potassium (Cozaar) 50 mg PO BID [facility] Memantine (Namenda) 10 mg PO BID [facility] Metformin HCl (Glucophage) 1,000 mg PO BIDWM [facility] Nitroglycerin (Nitrostat) 0.4 mg SL DIRECTED PRN FOLIC ACID 0.4 MG PO BID B-COMPLEX WITH VITAMIN C 1 CAP DAILY ASCORBIC ACID 500 MG PO BID PREDNISONE 10 MG BID FOR 5 DAYS KEFLEX 500 MG TID FOR 7 DAYS ALLERGIES: No Known Allergies Allergy (Verified 08/16/19 01:51) DISCONTINUED MEDICATIONS: NONE NEW PRESCRIPTIONS: KEFLEX 500 MG TID FOR 7 DAYS PREDNISONE 10 MG BID FOR 5 DAYS TAKE WITH FOOD SMOKING: NOT APPLICABLE DISEASE SPECIFIC EDUCATION: NUTRITION POSITION CHANGES MEDICATIONS; INCLUDING LASIX AT LEAST 3 TIMES A WEEK NEBULIZER TREATMENTS ORAL STEROIDS AND RISK OF GI IRRITATION, BONE DEMINERALIZATION DIET: RESUME DIET TOLERATED, ENCOURAGED TO DRINK NUTRITIONAL SUPPLEMENT AT LEAST 2 TIMES DAILY IN ADDITION TO MEALS ACTIVITY: RESUME TOLERATED FREQUENT POSITION CHANGES ENCOURAGED ELEVATE LOWER EXTREMITIES WHEN SITTING HOSPITAL COURSE: This is a white female who was brought into the emergency room complaining of shortness of breath. She has a history of COPD. She had done some NEB treatments at home and was still short of breath and wheezing. Upon evaluation in the ER BNP was elevated at 9,000. She was put on Lasix IV 40mg and given that for three days. She had significant output. Chest x-ray did reveal that she had some underlining bronchitis as well. She was started on Rocephin 1gram IV daily as well as continued on NEBS. She has Brovana BID as well as Pulmicort BID. Over the course of the past two days she has significantly improved. This morning she has been up and about walking around on her own and not requiring oxygen for the past two days. This morning she states that she is ready to go home. She has been eating well. Labs have all been stable. She did not have any leg edema on admission but again had over a liter out after the first dose of IV Lasix so I do believe that there was some component CHF given elevated BNP with underlining COPD. Telemetry has remained normal. She just had an echo in April which was essentially unchanged with ejection fraction of 57%. She was given IM Decadron followup admission 1/2cc IM and then 1/2cc yesterday. Upon examination this morning lungs sounds are clear, equal and diminished which is her normal. Again she has not been wearing oxygen. She is up and about doing well. We will discharged her with Keflex 500mg TID for the next 5 days at home along with Prednisone 10mg BID. She is to continued with her NEBS treatment with Brovana for the next week or so and as well as the Pulmicort. Her brother is her primary housekeeper caregiver. She has Lasix at home but he states she does not take it because she does not like to get up and have to go to the bathroom. We have instructed that she needs to take Lasix 20mg at least 3 days a week. Kidney functions tolerated IV Lasix. Labs are all fine. We will discharge her in stable condition. Followup with her next week. TIME SPENT: More than 60 minutes. MTDD
--- NOTE | 2019-08-20 10:48 | HP ---
DATE OF SERVICE: 08/16/19 REASON FOR HOSPITALIZATION: Shortness of breath, congestive heart failure and acute bronchitis HISTORY OF PRESENT ILLNESS: 89 year old white female was brought to the emergency room in acute respiratory failure and respiratory distress. The patient had a combination of acute bronchitis is low grade fever with yellowish sputum with evidence of congestive heart failure with BNP of 9,000. PAST MEDICAL HISTORY/PAST SURGICAL HISTORY: History of hysterectomy Tubal ligation Diabetes mellitus Congestive heart failure Coronary artery disease Osteoporosis Chronic lung disease Chronic anemia Dementia REVIEW OF SYSTEMS: CONSTITUTIONAL: No night sweats. No fever or chills. Weakness and fatigue. HEENT: Eyes: No visual changes. No eye pain. No eye discharge. ENT: No runny nose. No epistaxis. No sinus pain. No sore throat. No odynophagia. No ear pain. No congestion. RESPIRATORY: Cough, Congestion with yellowish sputum. No hemoptysis. Shortness of breath. CARDIOVASCULAR: No angina symptoms. No CHF symptoms. No atypical chest pain for CAD. No palpitations. PND and orthopnea. GASTROINTESTINAL: No abdominal pain. No nausea or vomiting. No diarrhea or constipation. No hematemesis. No hematochezia. Poor appetite. GENITOURINARY: No urgency. No frequency. No dysuria. No hematuria. No obstructive symptoms. No discharge. No pain. No significant abnormal bleeding. MUSCULOSKELETAL: No musculoskeletal pain. No joint swelling. No arthritis. NEUROLOGICAL: No headache. No neck pain. No syncope. No seizures. No dizziness. PSYCHIATRIC: Not anxious. No depression. No suicidal thoughts. No homicidal thoughts. SKIN: No rash. No lesions. No wounds. ENDOCRINE: No unexplained weight loss. No weight gain. HEMATOLOGIC/LYMPHATIC: No anemia. No purpura. No petechiae. No prolonged or excessive bleeding. No palpable lymph nodes. PERSONAL/FAMILY/SOCIAL HISTORY: Non smoker. No alcohol abuse. Lives with the help of bother. . She is not able to do lately activity of daily living. Her appetite has been declined. The activity of daily living she requires help of her brother. MEDICATIONS: Metformin 1000mg PO twice a day Nitroglycerin PRN for chest pain Lasix 20mg PO daily Carvedilol 12.5 PO twice a day Plavix 75mg PO at bedtime Diltazem 60mg BID Losartan 50mg BID Brovana inhalation twice a day Budesonide inhalation BID Iron tablets 325mg twice a day Namenda 10mg BID ALLERGIES: None PHYSICAL EXAMINATION: GENERAL: The patient is oriented to person and place, looks pale. VITAL SIGNS: Temperature 98.7, pulse 84, respiratory rate 18, blood pressure 200/80 and pulse ox 94% on 2 liters. HEENT: Head normocephalic, atraumatic. Eyes: Extraocular muscles are intact. Pupils are equal, round and reactive to light and accommodation. Ears: No lesions. Nose appeared normal. Throat: No exudate or erythema. NECK: Supple. 2cm JVD, no carotid bruit. No lymphadenopathy or thyromegaly. LUNGS: Bilateral crepitations. Good air entry. Percussion note normal. Chest symmetrical. HEART: S1, S2, questionable S3. Grade II/ systolic murmur. No cyanosis or clubbing. No ascites. Pulses: Dorsalis pedis and posterior tibial pulses +1 to +2 bilaterally. ABDOMEN: Soft. Nontender. Bowel sounds active. No CVA tenderness. No mass felt. EXTREMITIES: +1 pitting edema. Full range of motion of all extremities, equal. NEUROLOGIC: Sleepy and oriented to person. No focal deficit. Cranial nerves II through XII are grossly intact. No headache, no double vision or headache. SKIN: Not dry. Intact. Turgor - normal. LYMPHATIC: No palpable lymph nodes/no lymphedema. MUSCULOSKELETAL: Normal joints with no swelling. Muscle tone is normal. LABS: Hgb 10.7, hct 35, WBC 11,000 normal differential, creatinine 0.7, BUN 17, potassium 4.1, glucose 108, GFR 71cc per minute. PRO BNP 9,120. ABG pO2 66, pCO2 36, pH 7.38 with 92% saturation on room air. Total protein is low 7.4, albumin 4 normal. Liver enzymes negative ASSESSMENT: 1. Respiratory distress with combination of CHF and acute bronchitis 2. Severe chronic lung disease 3. Coronary artery disease 4. History of dementia 5. Generalized osteoporosis PLAN: 1. Admit the patient 2. Put her on telemetry 3. IV Lasix 40mg daily 4. Continue Losartan 5. NEBS treatment 6. Lovenox 30mg SUBCUT daily 7. Nitroglycerin PRN 8. Start Rocephin 1 gram Q 6 hours 9. Continue Pulmicort 10. Continue Namenda 11. Elevate the legs 12. Encourage the patient to eat regularly ADDENDUM: The patient's problem is noncompliance. She doesn't take her medications regularly especially Lasix because it makes her go to the bathroom quite frequently. She had stopped taking her Lasix for past several days according to the brother. The patient is DNR. The patient's condition has improved and she is not in any distress when examined. She was in stable condition with oxygen saturation 96% on room air. No respiratory distress. TIME SPENT: More than 70 minutes. SUZY
--- NOTE | 2019-08-20 11:01 | PN ---
DATE OF SERVICE: 08/17/19 SUBJECTIVE: 89 year old white female hospitalized with acute respiratory failure with pulmonary edema type of picture with respiratory distress. The patient's condition is improved remarkably. She is not in any distress. She is alert this morning. Answers questions. Problem is noncompliance especially with the Lasix because it makes her go to the bathroom. REVIEW OF SYSTEMS: CONSTITUTIONAL: No night sweats. No fatigue, malaise, lethargy. No fever or chills. HEENT: Eyes: No visual changes. No eye pain. No eye discharge. ENT: No runny nose. No epistaxis. No sinus pain. No sore throat. No odynophagia. No congestion. RESPIRATORY: No cough, no congestion. No hemoptysis. No shortness of breath. CARDIOVASCULAR: No angina symptoms. No CHF symptoms. No atypical chest pain for CAD. No palpitations. No PND. No orthopnea. GASTROINTESTINAL: No abdominal pain. No nausea or vomiting. No diarrhea or constipation. No hematemesis. No hematochezia. GENITOURINARY: No urgency. No frequency. No dysuria. No hematuria. No obstructive symptoms. No discharge. No pain. No significant abnormal bleeding. MUSCULOSKELETAL: No musculoskeletal pain; no joint swelling. NEUROLOGICAL: No headache. No neck pain. No syncope. No seizures. No dizziness. PSYCHIATRIC: Not anxious. No depression. No suicidal thoughts. No homicidal thoughts. SKIN: No rash. No lesions. No wounds. ENDOCRINE: No unexplained weight loss. No weight gain. HEMATOLOGIC/LYMPHATIC: No anemia. No purpura. No petechiae. No prolonged or excessive bleeding. No palpable lymph nodes. PHYSICAL EXAMINATION: VITAL SIGNS: Temperature 98, pulse 71, respiratory rate 16, blood pressure 160/70 and pulse ox 95%. HEENT: Head normocephalic, atraumatic. Eyes: Extraocular muscles are intact. Pupils are equal, round and reactive to light and accommodation. Ears: No lesions. Nose appeared normal. Throat: No exudate or erythema. NECK: Supple. No JVD, no carotid bruit. No lymphadenopathy or thyromegaly. LUNGS:Decreased breath sounds but clear to auscultation. Percussion note normal. Chest symmetrical. HEART: S1, S2, no S3. No murmurs. No cyanosis or clubbing. No ascites. Pulses: Dorsalis pedis and posterior tibial pulses +1 to +2 bilaterally. ABDOMEN: Soft. Nontender. Bowel sounds active. No CVA tenderness. No mass felt. EXTREMITIES: No edema. Full range of motion of all extremities, equal. NEUROLOGIC: No focal deficit. Cranial nerves II through XII are grossly intact. No headache, no double vision or headache. SKIN: Not dry. Intact. Turgor - normal. LYMPHATIC: No palpable lymph nodes/no lymphedema. MUSCULOSKELETAL: Normal joints with no swelling. Muscle tone is normal. LABS: hgb 10.9, hct 35, WBC 10,000 normal differential, creatinine 0.9, BUN 23, potassium 4. Initial PRO BNP 9,120 on 08/16/19. ASSESSMENT: 1. CHF seems to have resolved 2. Respiratory failure resolved 3. Acute bronchitis with yellowish sputum the patient is on Rocephin seems to be better 4. Hypertension more or less under control 5. Anemia, chronic 6. Coronary artery disease, stable 7. Peripheral arterial disease PLAN: 1. Chest x-ray in the morning 2. PRO BNP in the morning 3. Continue Lasix 4. Advised to take her medications regularly Talked to the brother and brother is trying to help the patient but he can't help it because the patient is very stubborn. The patient is DNR. TIME SPENT: More than 30 minutes. Plan and coordination of the patient's care discussed in the presence of nurse. SUZY
--- NOTE | 2019-08-20 11:09 | PN ---
DATE OF SERVICE: 08/19/19 SUBJECTIVE: The patient is improved, CHF is resolving. The patient was seen and examined with Nurse Practitioner. PHYSICAL EXAMINATION: HEENT: Head normocephalic, atraumatic. Eyes: Extraocular muscles are intact. Pupils are equal, round and reactive to light and accommodation. Ears: No lesions. Nose appeared normal. Throat: No exudate or erythema. NECK: Supple. No JVD, no carotid bruit. No lymphadenopathy or thyromegaly. LUNGS: Decreased breath sounds but clear to auscultation. Percussion note normal. Chest symmetrical. HEART: S1, S2, no S3. No murmurs. No cyanosis or clubbing. No ascites. Pulses: Dorsalis pedis and posterior tibial pulses +1 to +2 bilaterally. ABDOMEN: Soft. Nontender. Bowel sounds active. No CVA tenderness. No mass felt. EXTREMITIES: No edema. Full range of motion of all extremities, equal. NEUROLOGIC: No focal deficit. Cranial nerves II through XII are grossly intact. No headache, no double vision or headache. SKIN: Not dry. Intact. Turgor - normal. LYMPHATIC: No palpable lymph nodes/no lymphedema. MUSCULOSKELETAL: Normal joints with no swelling. Muscle tone is normal. PLAN: 1. CHF education carried out. 2. Advised to take Lasix on regular basis TIME SPENT: More than 30 minutes. Plan and coordination of the patient's care discussed in the presence of nurse. SUZY
--- NOTE | 2019-08-22 14:36 | PN ---
DATE OF SERVICE: 08/19/19 SUBJECTIVE: The patient was seen and examined with the Nurse Practitioner. The patient's CHF seems to have resolved. CHF counseling done. The patient strongly advised to take her Lasix everyday. Take all her medications on regular basis. The patient has an attitude she doesn't care. She wants DNR. Brother is trying to take care of her. She is a difficult patient. PROGNOSIS: Guarded. TIME SPENT: More than 30 minutes. Plan and coordination of the patient's care discussed in the presence of nurse. SUZY
--- NOTE | 2019-08-22 14:37 | PN ---
08/16/19: Level 5 08/17/19: Intermediate 08/18/19: Intermediate 08/19/19: D as in discharge MTDD
== END 2019-08-19 13:50 | disposition home or self-care (01) | DRG 204 ==
LOC: ED 01:41 → MEDSURG B 03:39
PROVIDERS: ADMIT Internal Medicine; ATTEND Internal Medicine
DX: F03.90 Unspecified dementia, unspecified severity, without behavioral disturbance, psychotic disturbance, mood disturbance, and anxiety; J44.9 Chronic obstructive pulmonary disease, unspecified; J20.9 Acute bronchitis, unspecified; J96.90 Respiratory failure, unspecified, unspecified whether with hypoxia or hypercapnia; I50.9 Heart failure, unspecified; D64.9 Anemia, unspecified; M81.0 Age-related osteoporosis without current pathological fracture; R06.02 Shortness of breath; I10 Essential (primary) hypertension; R06.2 Wheezing; N18.2 Chronic kidney disease, stage 2 (mild); I73.9 Peripheral vascular disease, unspecified; D51.9 Vitamin B12 deficiency anemia, unspecified; E11.9 Type 2 diabetes mellitus without complications; R06.01 Orthopnea; I25.10 Atherosclerotic heart disease of native coronary artery without angina pectoris; R05 Cough

== ENCOUNTER 2019-09-18 18:35 | Inpatient (IN) ==
[2019-09-18] MEDS ORDERED: DECADRON 4 MG/ML SDV IVP STA (20:14)
[2019-09-18] MEDS ORDERED: ROCEPHIN 1 GM/50 ML D5W 1 GM/50 ML BAG IV STA ×2 (20:14→20:19)
[2019-09-18] MEDS ORDERED: TYLENOL PO PRN (20:16)
[2019-09-18] MEDS ORDERED: SODIUM CHLORIDE 1,000 ML IV SCH (20:30)
--- NOTE | 2019-09-18 21:06 | DI ---
EXAM: Portable chest. HISTORY: Congestion COMPARISON: Portable chest 04/25/2019 FINDINGS: There is a rotated to the left. The cardiomediastinal silhouette is stable. Scattered ca lcified granulomas are noted. There is no consolidation or effusion IMPRESSION: Benign granulomatous changes without evidence of active pulmonary disease
--- NOTE | 2019-09-18 21:28 | ED.PDOC ---
General ED Provider: Dr. EVELIO ANDREW Chief Complaint: Fever Mode of Arrival: Ambulance Information Source: Patient Primary Care Provider: MONICA KUHN Sepsis Protocol: For patient's 13 years and over: Temp is 96.8 and below OR 101 and greater Pulse >90 BPM Resp >20/minute Acutely Altered Mental Status Are patient's symptoms suggestive of a new infection, such as: -Pneumonia -Skin, Soft Tissue -Endocarditis -UTI -Bone, Joint Infection -Implantable Device -Acute Abdominal Infection -Wound Infection -Meningitis -Blood Stream Catheter Infection -Unknown Respiratory Complaint Exam Respiratory Complaint/Exam Onset/Duration: Earlier today Symptoms Are: Still present Timing: Intermittent Initial Severity: Moderate Current Severity: Mild Location: Chest Character: Reports Non-productive cough Aggravating: Reports None Alleviating: Reports None Associated Signs and Symptoms: Reports Fever, Wheezing, Nasal congestion, Weight loss and Decreased oral intake; Denies Rapid breathing, Dyspnea, Chills, Chest pain, Pleuritic chest pain, Hemoptysis, Dizziness, Calf pain, Calf swelling, Edema, URI, Hoarseness, Sinus discomfort, Vomiting, Sore throat, Increased thirst, Increased appetite and Increased urination Related History: Denies Similar episode History of Healthcare-Acquired Pneumonia: No Related Surgical History: Reports None Pulmonary Embolism Risk Factors: None Cardiac Risk Factors: Reports None Pseudomonas Risk Factors: Reports None Tuberculosis Risk Factors: Reports None Status Asthmaticus Risk Factors: Reports None Home Oxygen Use: Yes Recent Stress Test: No Recent Echo/LV Function: No Current Antibiotic Use: No Current Asthma Medication Use: Yes Respiratory Distress: None Inadequate Respiratory Effort: No Dysphagia Present: No Stridor Present: No JVD Present: No Accessory Muscle Use: No Retractions: Not Present Diminished Breath Sounds: No Sinus Tenderness: None Grunting Respirations: No Kussmaul Respirations: No Differential Diagnoses: Pulmonary Edema, Bronchospasm, URI and Influenza Review of Systems Review Of Systems Constitutional: Reports Fever and Loss of appetite Eyes: Reports No symptoms Ears, Nose, Mouth, Throat: Reports No symptoms Respiratory: Reports Cough Cardiac: Reports No symptoms GI: Reports Poor appetite : Reports No symptoms Musculoskeletal: Reports No symptoms Skin: Reports No symptoms Neurological: Reports No symptoms Endocrine: Reports No symptoms Hematologic/Lymphatic: Reports No symptoms All Other Systems: Reviewed and Negative [facility] Medical History Arthritis (Acute) CAD (coronary artery disease) (Acute) COPD (chronic obstructive pulmonary disease) (Acute) Dementia (Acute) Diabetes (Acute) History of appendectomy (Acute) History of heart artery stent (Acute) History of hysterectomy (Acute) HTN (hypertension) (Acute) Hx of tonsillectomy (Acute) Hyperlipidemia (Acute) Social History Smoking and tobacco status: Never smoker Substance use type: does not use History of recent travel: No Current diet type/program: regular Caffeine: Yes (1 cup in the morning) Reads food labels: seldom or never Female Reproductive History Menstrual Hx Hysterectomy: Yes Hx Tubal Ligation: No Physical Exam Physical Exam Appearance: Ill-appearing, Thin and Cachectic Ill-appearing: Mild Pain Distress: None Eyes: DONNA, EOMI and Conjunctiva clear ENT: Ears normal, Nose normal and Oropharynx normal Respiratory: Airway patent, Breath sounds clear, Breath sounds equal and Respirations nonlabored Cardiovascular: RRR, Pulses normal, No rub and No murmur GI/: Soft, Nontender, No masses, Bowel sounds normal, No Organomegaly and Tender Musculoskeletal: ROM intact, No edema, No calf tenderness and Limited strength Skin: Warm, Dry and Normal color Neurological: Sensation intact, Motor intact, Reflexes intact, Cranial nerves intact, Alert and Oriented Psychiatric: Affect appropriate and Mood appropriate Physician Notification Case Discussed Physician Notified: DR Khun-agrees to admit and tx for dehydration Time of Notification: 19:10 Critical Care Note Critical Care Note Total Time (mins): 30 Course Course Orders, Labs, Meds: Lab Review 09/18/19 09/18/19 09/18/19 20:30 20:30 20:30 Lactic Acid 0.76 Total Creatine Kinase 83.3 Procalcitonin 0.09 Orders Category Date Time Status ADMIT PATIENT INPATIENT .TO MED[facility] (MONITORED BED) ADMISSION 09/18/19 20:34 Active EKG-(IP & OP ONLY) Routine CARDIO 09/18/19 20:18 Ordered OXYGEN Routine CARDIO 09/18/19 20:11 Ordered OXYGEN Routine CARDIO 09/18/19 20:16 Ordered ACTIVITY .Complete BR CARE 09/18/19 20:17 Active GIVE HS SNACK 2100 CARE 09/18/19 20:17 Active INTAKE & OUTPUT Q8HR CARE 09/18/19 20:17 Active TELEMETRY MONITORING TELE CARE 09/18/19 20:35 Active VITAL SIGNS Q8HR CARE 09/18/19 20:17 Active CLEAR LIQUID DIET DIETARY 09/18/19 Breakfast Ordered HS SNACK DIETARY 09/18/19 Dinner Ordered IV [ED IV/MEDIPORT/POWERPORT] .ONCE EMERGENCY 09/18/19 20:12 Active BLOOD CULTURE (ED ONLY) Stat LAB 09/18/19 20:30 Received CPK [CREATINE KINASE] Stat LAB 09/18/19 20:30 Completed FLU A & B MOLECULAR [FLU A/B MOLECULAR] Stat LAB 09/18/19 21:15 Received LACTIC ACID Stat LAB 09/18/19 20:30 Completed PROCALCITONIN Stat LAB 09/18/19 20:30 Completed 0.9 % Sodium Chloride [Saline Flush] MEDS 09/18/19 20:11 Active 1 syr IVF PRN PRN Acetaminophen [Tylenol] MEDS 09/18/19 20:16 Active 650 mg PO Q4H PRN Ceftriaxone/D5w 1 gm Premix [Rocephin 1 gm/50 ml D5w] MEDS 09/18/19 20:14 Discontinued 1 gm in 50 ml IV ONCE Ceftriaxone/D5w 1 gm Premix [Rocephin 1 gm/50 ml D5w] MEDS 09/18/19 20:19 Discontinued 1 gm in 50 ml IV ONCE Dexamethasone 4 mg/ml Inj [Decadron 4 mg/ml Sdv] MEDS 09/18/19 20:14 Discontinued 4 mg IVP ONCE STA Sodium Chloride 0.9% [Sodium Chloride] 1,000 ml MEDS 09/18/19 20:30 Active IV DAILY RESUSCITATION STATUS Routine OTHERS 09/18/19 20:16 Ordered CHEST, 1V AP ONLY Stat RADS 09/18/19 20:02 Completed Medications Generic Name Dose Route Start Last Admin Trade Name Freq PRN Reason Stop Dose Admin Acetaminophen 650 mg 09/18/19 20:16 Tylenol PO Q4H PRN Fever >101 Sodium Chloride 1,000 mls @ 80 mls/hr 09/18/19 20:30 Sodium Chloride IV DAILY JIM Sodium Chloride 1 syr 09/18/19 20:11 09/18/19 21:17 Saline Flush IVF 1 syr PRN PRN Administration To flush IV Discontinued Medications Generic Name Dose Route Start Last Admin Trade Name Freq PRN Reason Stop Dose Admin Dexamethasone Sodium Phosphate 4 mg 09/18/19 20:14 09/18/19 21:16 Decadron 4 Mg/Ml Sdv IVP 09/18/19 20:15 4 mg ONCE STA Administration CEFTRIAXONE/D5W 1 GM PREMIX 1 gm in 50 mls @ 75 mls/hr 09/18/19 20:14 09/18/19 21:16 Rocephin 1 Gm/50 Ml D5w IV 09/18/19 20:53 75 mls/hr ONCE STA Administration CEFTRIAXONE/D5W 1 GM PREMIX 1 gm in 50 mls @ 75 mls/hr 09/18/19 20:19 Rocephin 1 Gm/50 Ml D5w IV 09/18/19 20:58 ONCE STA Vital Signs: Temp Pulse Resp BP Pulse Ox 09/18/19 18:36 100.5 F H 83 20 154/70 H 97 Discharge Plan Discharge Patient Disposition: ADMITTED INPATIENT Discharge Problem: Adult failure to thrive, Acute dehydration ED Provider: EVELIO ANDREW
[2019-09-18 22:30] VITALS: BMI 17.2
[2019-09-19] MEDS ORDERED: MILK OF MAGNESIA PO PRN (00:09)
[2019-09-19] MEDS ORDERED: TYLENOL PO PRN ×2 (00:09→08:44)
[2019-09-19] MEDS ORDERED: DULCOLAX RC PRN (00:09)
[2019-09-19] MEDS ORDERED: LASIX TAB PO SCH ×2 (06:30)
[2019-09-19] MEDS ORDERED: COREG PO SCH (08:00)
[2019-09-19] MEDS ORDERED: NON-FORMULARY MEDICATION (Ferrous Sulfate [Iron] 325 MG) PO SCH (09:00)
[2019-09-19] MEDS ORDERED: COZAAR PO SCH (09:00)
[2019-09-19] MEDS ORDERED: TAMIFLU PO SCH ×2 (09:00)
[2019-09-19] MEDS ORDERED: FOLIC ACID 0.4 MG PO SCH (09:00)
[2019-09-19] MEDS: COZAAR PO SCH ×3 (09:00→20:04)
[2019-09-19] MEDS ORDERED: PULMICORT 0.5 MG/2 ML NEB SCH (09:00)
[2019-09-19] MEDS: GLUCOPHAGE PO SCH ×3 (09:00→17:46)
--- NOTE | 2019-09-19 09:02 | PCM.PROG ---
Attending Provider: ATTENDING PROVIDER: Dr. MONICA KUHN This patient is seen with Dee Miller, Nurse Practitioner. DATE OF SERVICE: 09/19/19 SUBJECTIVE: This 89 year old /WHITE F was hospitalized 09/18/19. The patient is resting comfortably. Flu was negative in ER despite exposure. The patient started with temperature yesterday of 102. REVIEW OF SYSTEMS: CONSTITUTIONAL: No night sweats. No fatigue, malaise, lethargy. Fever. Weakness. HEENT: Eyes: No visual changes. No eye pain. No eye discharge. ENT: No runny nose. No epistaxis. No sinus pain. No odynophagia. No congestion. RESPIRATORY: No cough, no congestion. No hemoptysis. No shortness of breath. CARDIOVASCULAR: No angina symptoms. No CHF symptoms. No atypical chest pain for CAD. No palpitations. No orthopnea.. GASTROINTESTINAL: No abdominal pain. No nausea or vomiting. No diarrhea or constipation. No hematemesis. No hematochezia. GENITOURINARY: No urgency. No frequency. No dysuria. No hematuria. No obstructive symptoms. No discharge. No pain. No significant abnormal bleeding. MUSCULOSKELETAL: No musculoskeletal pain; no joint swelling. NEUROLOGICAL: Awake, alert, oriented to time, place and person. No headache. No neck pain. No syncope. No seizures. No dizziness. PSYCHIATRIC: Not anxious. No depression. No suicidal thoughts. No homicidal thoughts. SKIN: No rash. No lesions. No wounds. ENDOCRINE: No unexplained weight loss. No weight gain. HEMATOLOGIC/LYMPHATIC: No anemia. No purpura. No petechiae. No prolonged or excessive bleeding. No palpable lymph nodes. PHYSICAL EXAMINATION: GENERAL: The patient is awake, alert and oriented, lying in bed in no distress. VITAL SIGNS: Temperature 99.8 F, Pulse 82, Respiratory Rate 18, BP 155/75, Pulse Ox 99% HEENT: Head normocephalic, atraumatic. Eyes: Extraocular muscles are intact. Pupils are equal, round and reactive to light and accommodation. Ears: No lesions. Nose appeared normal. Throat: No exudate or erythema. NECK: Supple. No JVD, no carotid bruit. No lymphadenopathy or thyromegaly. LUNGS: Diminished breath sounds. Clear to auscultation. Percussion note normal. Chest symmetrical. HEART: S1, S2, no S3. No murmurs. No cyanosis or clubbing. No ascites. Pulses: Dorsalis pedis and posterior tibial pulses +1 to +2 both sides. ABDOMEN: Soft. Non-tender. Bowel sounds active. No CVA tenderness. No mass felt. EXTREMITIES: No edema. Full range of motion of all extremities, equal. NEUROLOGIC: No focal deficit. Cranial nerves II through XII are grossly intact. No headache, no double vision or headache. SKIN: Not dry. Intact. Turgor-normal. LYMPHATIC: No palpable lymph nodes/no lymphedema. MUSCULOSKELETAL: Normal joints with no swelling. Muscle tone is normal. LAB REVIEW: 09/19/19 05:05 09/19/19 05:05 09/19/19 05:05: Sodium 142.2, Potassium 3.96, Chloride 107.3 H, Carbon Dioxide 26.1, Anion Gap 12.76, BUN 35.4 H, Creatinine 1.02, Estimated GFR (MDRD) 51.00, BUN/Creatinine Ratio 34.70, Glucose 177.9 H, Calcium 9.55, Total Bilirubin 0.74, AST 24.0, ALT 16.8, Alkaline Phosphatase 97.4, Total Protein 6.76, Albumin 3.26 L, Globulin 3.50, Albumin/Globulin Ratio 0.93 09/19/19 05:05: WBC 6.44, RBC 3.61 L, Hgb 9.7 L, Hct 31.2 L, MCV 86.4, MCH 26.9 L, MCHC 31.1 L, RDW Coeff of Ray 14.6, Plt Count 238, Immature Gran % (Auto) 0.6, Neut % (Auto) 81.8, Lymph % (Auto) 16.3, [place] % (Auto) 1.1, Eos % (Auto) 0.0, Baso % (Auto) 0.2, Immature Gran # (Auto) 0.0, Neut # (Auto) 5.3, Lymph # (Auto) 1.1, [place] # (Auto) 0.1 L, Eos # (Auto) 0.0, Baso # (Auto) 0.0 09/18/19 21:15: Influ A Molecular Assay Negative by naat, Influ B Molecular Assay Negative by naat 09/18/19 20:30: Lactic Acid 0.76 09/18/19 20:30: Procalcitonin 0.09 09/18/19 20:30: Total Creatine Kinase 83.3 ASSESSMENT: Please see below. 1. Fever 2. Flu exposure 3. Dehydration 4. Underlined chronic kidney disease 5. Hypertension PLAN: 1. Tylenol for fever greater than 100.4. 2. U/A 3. Repeat Flu 4. Rocephin 1 gram IV daily 5. Coreg 12.5mg BID Plan and coordination of the patient's care discussed in the presence of Bus Driver and nurse. SCRIBED BY: Leonard HASSAN scribed while in presence of service performed by Dr. Kuhn/Dee Miller APRN on 09/19/19 ([id number])
[2019-09-19] MEDS: COREG PO SCH ×2 (10:38→17:46)
[2019-09-19] MEDS: CARDIZEM PO SCH ×3 (10:38→20:04)
[2019-09-19] MEDS: TAMIFLU PO SCH (10:38)
[2019-09-19] MEDS: NAMENDA PO SCH ×2 (10:39→20:01)
[2019-09-19] MEDS: FOLIC ACID PO SCH ×2 (10:39→20:02)
[2019-09-19] MEDS: VITAMIN C PO SCH ×2 (10:39→20:04)
[2019-09-19] MEDS: FERROUS SULFATE PO SCH ×2 (10:39→20:05)
[2019-09-19] MEDS: ROCEPHIN 1 GM/50 ML D5W 1 GM/50 ML BAG IV SCH (10:40)
[2019-09-19] MEDS: SANTYL TP SCH (10:40)
--- NOTE | 2019-09-19 13:34 | PN ---
DATE OF SERVICE: 09/18/19 SUBJECTIVE: The patient was brought to the emergency room by the brother with complaint of having high fever of 102 with chills. The patient is resident of the senior living where she has been on Tamiflu. The patient's BUN is elevated now to 30 with creatinine of 1.4. A couple of months ago her creatinine was 0.9. She seems to be dehydration. REVIEW OF SYSTEMS: CONSTITUTIONAL: No night sweats. No fatigue, malaise, lethargy. No fever or chills. HEENT: Eyes: No visual changes. No eye pain. No eye discharge. ENT: No runny nose. No epistaxis. No sinus pain. No sore throat. No odynophagia. No congestion. RESPIRATORY: No cough, no congestion. No hemoptysis. No shortness of breath. CARDIOVASCULAR: No angina symptoms. No CHF symptoms. No atypical chest pain for CAD. No palpitations. No PND. No orthopnea. GASTROINTESTINAL: No abdominal pain. No nausea or vomiting. No diarrhea or constipation. No hematemesis. No hematochezia. GENITOURINARY: No urgency. No frequency. No dysuria. No hematuria. No obstructive symptoms. No discharge. No pain. No significant abnormal bleeding. MUSCULOSKELETAL: No musculoskeletal pain; no joint swelling. NEUROLOGICAL: No headache. No neck pain. No syncope. No seizures. No dizziness. PSYCHIATRIC: Not anxious. No depression. No suicidal thoughts. No homicidal thoughts. SKIN: No rash. No lesions. No wounds. ENDOCRINE: No unexplained weight loss. No weight gain. HEMATOLOGIC/LYMPHATIC: No anemia. No purpura. No petechiae. No prolonged or excessive bleeding. No palpable lymph nodes. PHYSICAL EXAMINATION: HEENT: Head normocephalic, atraumatic. Eyes: Extraocular muscles are intact. Pupils are equal, round and reactive to light and accommodation. Ears: No lesions. Nose appeared normal. Throat: No exudate or erythema. NECK: Supple. No JVD, no carotid bruit. No lymphadenopathy or thyromegaly. LUNGS: Clear to auscultation. Percussion note normal. Chest symmetrical. HEART: S1, S2, no S3. No murmurs. No cyanosis or clubbing. No ascites. Pulses: Dorsalis pedis and posterior tibial pulses +1 to +2 bilaterally. ABDOMEN: Soft. Nontender. Bowel sounds active. No CVA tenderness. No mass felt. EXTREMITIES: No edema. Full range of motion of all extremities, equal. NEUROLOGIC: No focal deficit. Cranial nerves II through XII are grossly intact. No headache, no double vision or headache. SKIN: Not dry. Intact. Turgor - normal. LYMPHATIC: No palpable lymph nodes/no lymphedema. MUSCULOSKELETAL: Normal joints with no swelling. Muscle tone is normal. LABS: Creatinine 1.3, BUN 36, potassium 3.7, Normal liver profile, hgb 9.3, hct 29, WBC 8,400 normal differential. ASSESSMENT: 1. Febrile illness likely could be flu syndrome, UTI can not be ruled out 2. Renal Azotemia 3. Dehydration 4. Multiple other medical conditions PLAN: 1. Given IV fluids 2. Slow hydration watch for fluid overload 3. Cardiovascular system 4. One dose of Rocephin 5. 2cc Decadron IM The patient is a DNR. CONDITION: Stable for now. TIME SPENT: More than 30 minutes. Plan and coordination of the patient's care discussed in the presence of nurse. SUZY
[2019-09-19] MEDS: SODIUM CHLORIDE 1,000 ML IV SCH (17:51)
[2019-09-19] MEDS: PULMICORT 0.5 MG/2 ML NEB SCH (18:02)
[2019-09-19] MEDS: PLAVIX PO SCH (20:04)
[2019-09-20] MEDS: PULMICORT 0.5 MG/2 ML NEB SCH ×2 (05:10→17:38)
[2019-09-20] MEDS: LASIX TAB PO SCH (05:43)
[2019-09-20] MEDS: SODIUM CHLORIDE 1,000 ML IV SCH ×3 (06:17→21:10)
[2019-09-20] MEDS ORDERED: LASIX TAB PO SCH (06:30)
[2019-09-20] MEDS: SANTYL TP SCH (08:52)
[2019-09-20] MEDS: VITAMIN C PO SCH ×2 (08:52→20:09)
[2019-09-20] MEDS: TAMIFLU PO SCH (08:53)
[2019-09-20] MEDS: GLUCOPHAGE PO SCH ×2 (08:53→17:13)
[2019-09-20] MEDS: FERROUS SULFATE PO SCH ×3 (08:53→20:10)
[2019-09-20] MEDS: FOLIC ACID PO SCH ×2 (08:53→20:10)
[2019-09-20] MEDS: CARDIZEM PO SCH ×2 (08:54→20:11)
[2019-09-20] MEDS: COREG PO SCH ×2 (08:54→17:13)
[2019-09-20] MEDS: NAMENDA PO SCH ×3 (08:54→20:10)
[2019-09-20] MEDS: COZAAR PO SCH ×2 (08:54→20:10)
[2019-09-20] MEDS: ROCEPHIN 1 GM/50 ML D5W 1 GM/50 ML BAG IV SCH (08:54)
[2019-09-20] MEDS ORDERED: DECADRON 4 MG/ML SDV IM STA (11:59)
[2019-09-20] MEDS: PLAVIX PO SCH (20:11)
[2019-09-21] MEDS: PULMICORT 0.5 MG/2 ML NEB SCH ×2 (04:50→18:27)
[2019-09-21] MEDS: LASIX TAB PO SCH (06:01)
[2019-09-21] MEDS: FOLIC ACID PO SCH ×2 (08:52→20:26)
[2019-09-21] MEDS: ROCEPHIN 1 GM/50 ML D5W 1 GM/50 ML BAG IV SCH (08:52)
[2019-09-21] MEDS: VITAMIN C PO SCH ×2 (08:52→20:25)
[2019-09-21] MEDS: CARDIZEM PO SCH ×2 (08:52→20:26)
[2019-09-21] MEDS: COZAAR PO SCH ×2 (08:53→20:26)
[2019-09-21] MEDS: GLUCOPHAGE PO SCH ×2 (08:53→17:17)
[2019-09-21] MEDS: SANTYL TP SCH (08:53)
[2019-09-21] MEDS: NAMENDA PO SCH ×2 (08:53→20:25)
[2019-09-21] MEDS: TAMIFLU PO SCH (08:53)
[2019-09-21] MEDS: FERROUS SULFATE PO SCH ×2 (08:53→20:26)
[2019-09-21] MEDS: COREG PO SCH ×2 (08:53→17:18)
[2019-09-21] MEDS: SODIUM CHLORIDE 1,000 ML IV SCH ×2 (08:55→21:32)
[2019-09-21] MEDS: PLAVIX PO SCH (20:25)
[2019-09-22] MEDS: PULMICORT 0.5 MG/2 ML NEB SCH ×2 (04:52→17:15)
[2019-09-22] MEDS: LASIX TAB PO SCH (05:31)
[2019-09-22] MEDS: COREG PO SCH ×2 (09:23→17:41)
[2019-09-22] MEDS: GLUCOPHAGE PO SCH ×2 (09:23→17:41)
[2019-09-22] MEDS: FOLIC ACID PO SCH ×2 (09:23→20:18)
[2019-09-22] MEDS: COZAAR PO SCH ×2 (09:23→20:17)
[2019-09-22] MEDS: TAMIFLU PO SCH (09:23)
[2019-09-22] MEDS: CARDIZEM PO SCH ×2 (09:24→20:17)
[2019-09-22] MEDS: VITAMIN C PO SCH ×2 (09:24→20:17)
[2019-09-22] MEDS: FERROUS SULFATE PO SCH ×2 (09:24→20:17)
[2019-09-22] MEDS: NAMENDA PO SCH ×2 (09:24→20:17)
[2019-09-22] MEDS: SANTYL TP SCH (09:25)
[2019-09-22] MEDS: ROCEPHIN 1 GM/50 ML D5W 1 GM/50 ML BAG IV SCH (09:40)
--- NOTE | 2019-09-22 09:49 | HP ---
DATE OF SERVICE: 09/18/19 REASON FOR HOSPITALIZATION/HISTORY OF PRESENT ILLNESS: 89 year old white female who is currently at [facility] for physical therapy. They have had known Flu. She started with Fever of 102 last night and had been on prophylactic Tamiflu 75 daily. She was brought to the emergency room. 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 No fatigue, malaise, lethargy. Fever and weakness. HEENT: Eyes: No visual changes. No eye pain. No eye discharge. ENT: No runny nose. No epistaxis. No sinus pain. No sore throat. No odynophagia. No ear pain. No congestion. RESPIRATORY: No cough, no congestion. No hemoptysis. No shortness of breath. CARDIOVASCULAR: No angina symptoms. No CHF symptoms. No atypical chest pain for CAD. No palpitations. No PND. No orthopnea. GASTROINTESTINAL: No abdominal pain. No nausea or vomiting. No diarrhea or constipation. No hematemesis. No hematochezia. GENITOURINARY: No urgency. No frequency. No dysuria. No hematuria. No obstructive symptoms. No discharge. No pain. No significant abnormal bleeding. MUSCULOSKELETAL: No musculoskeletal pain. No joint swelling. No arthritis. NEUROLOGICAL: No headache. No neck pain. No syncope. No seizures. No dizziness. PSYCHIATRIC: Not anxious. No depression. No suicidal thoughts. No homicidal thoughts. SKIN: No rash. No lesions. No wounds. ENDOCRINE: No unexplained weight loss. No weight gain. HEMATOLOGIC/LYMPHATIC: No anemia. No purpura. No petechiae. No prolonged or excessive bleeding. No palpable lymph nodes. PERSONAL/FAMILY/SOCIAL HISTORY: The patient is . She had been living at home with her brother, Finesse who is a nurse most recently last week she was placed at [facility] for rehab. She is a nonsmoker. No alcohol or illicit drug use. For the past month she has been requiring assistance with activity of daily living due to falls at home MEDICATIONS: Glucophage 1000mg PO BID Nitrostat 0.4mg SUBLINGUAL as directed PRN Diltiazem 60mg PO Q 12 hours Losartan 50mg PO twice a day B complex with Vitamin C one capsule PO daily Budesonide 0.5mg inhalation BID Namenda 10mg PO twice a day Folic acid 0.4mg PO BID Iron 325mg PO twice a day Vitamin C 500mg PO BID Brovana 2ml Inhalation BID PRN Fleet enema 118ml SC once PRN Bisacodyl 10mg SC Q 24 hours PRN Mild of magnesia 30ml PO bedtime PRN Coreg 6.25mg PO BID Tamiflu 75mg PO daily Clopidogrel 75mg BEDTIME Lasix 20mg PO QDAC Santyl 250unit/gram ointment one application Topical daily ALLERGIES: No known allergies. PHYSICAL EXAMINATION: GENERAL: The patient is alert and oriented to person and place. VITAL SIGNS: Temperature 100.5, heart rate 83, respiratory rate 20, blood pressure 154/70 and pulse ox 97%. HEENT: Head normocephalic, atraumatic. Eyes: Extraocular muscles are intact. Pupils are equal, round and reactive to light and accommodation. Ears: No lesions. Nose appeared normal. Throat: No exudate or erythema. NECK: Supple. No JVD, no carotid bruit. No lymphadenopathy or thyromegaly. LUNGS: Diminished breath sounds bilaterally. Clear to auscultation. Percussion note normal. Chest symmetrical. HEART: S1, S2, no S3. No murmur. No cyanosis or clubbing. No ascites. Pulses: Dorsalis pedis and posterior tibial pulses +1 to +2 bilaterally. ABDOMEN: Soft. Nontender. Bowel sounds active. No CVA tenderness. No mass felt. EXTREMITIES: No edema. Full range of motion of all extremities, equal. NEUROLOGIC: No focal deficit. Cranial nerves II through XII are grossly intact. No headache, no double vision or headache. SKIN: Not dry. Intact. Turgor - normal. Pale LYMPHATIC: No palpable lymph nodes/no lymphedema. MUSCULOSKELETAL: Normal joints with no swelling. Muscle tone is normal. LABS: WBC 6.4, hgb 9.7, hct 31, plt count 238, sodium 142, potassium 3.9, BUN 35, creatinine 1.02. Glucose 177, AST 24, ALT 16, total protein 6.7, Influenza A and B are both negative. Chest x-ray was review and showed no acute process. ASSESSMENT: 1. Fever 2. Acute dehydration 3. Hypertension 4. Chronic lungs disease PLAN: 1. We will admit 2. Routine telemetry orders 3. CBC and CMP daily 4. Tylenol 500mg Q 4 hours for fevers greater than 100.4. 5. Normal saline IV at 75cc an hour 6. Urine for culture and sensitivity and U/A 7. We will repeat an influenza in 12 hours due to known exposure likelihood she may have been just tested early. 8. Continue all other medication 9. Regular diet 10.Oxygen at 1-2 liters Will follow closely. TIME SPENT: More than 70 minutes. MTDD
--- NOTE | 2019-09-22 09:51 | PCM.PROG ---
Attending Provider: ATTENDING PROVIDER: Dr. MONICA KUHN This patient is seen with Dee Miller, Nurse Practitioner. DATE OF SERVICE: 09/22/19 SUBJECTIVE: This 89 year old /WHITE F was hospitalized 09/18/19. The patient is resting comfortably. The family would like her to participate in therapy. Clinically she has improved. Kidney function is better. Blood pressure is controlled. REVIEW OF SYSTEMS: CONSTITUTIONAL: Weakness. No night sweats. No fatigue, malaise, lethargy. No fever or chills. HEENT: Eyes: No visual changes. No eye pain. No eye discharge. ENT: No runny nose. No epistaxis. No sinus pain. No odynophagia. No congestion. RESPIRATORY: No cough, no congestion. No hemoptysis. No shortness of breath. CARDIOVASCULAR: No angina symptoms. No CHF symptoms. No atypical chest pain for CAD. No palpitations. No orthopnea.. GASTROINTESTINAL: No abdominal pain. No nausea or vomiting. No diarrhea or constipation. No hematemesis. No hematochezia. GENITOURINARY: No urgency. No frequency. No dysuria. No hematuria. No obstructive symptoms. No discharge. No pain. No significant abnormal bleeding. MUSCULOSKELETAL: No musculoskeletal pain; no joint swelling. NEUROLOGICAL: Awake, alert, oriented to time, place and person. No headache. No neck pain. No syncope. No seizures. No dizziness. PSYCHIATRIC: Not anxious. No depression. No suicidal thoughts. No homicidal thoughts. SKIN: No rash. No lesions. No wounds. ENDOCRINE: No unexplained weight loss. No weight gain. HEMATOLOGIC/LYMPHATIC: No anemia. No purpura. No petechiae. No prolonged or excessive bleeding. No palpable lymph nodes. PHYSICAL EXAMINATION: GENERAL: The patient is awake, alert and oriented, lying/sitting in bed in no distress. VITAL SIGNS: Temperature 97.6 F, Pulse 77, Respiratory Rate 18, BP 124/59, Pulse Ox 99% HEENT: Head normocephalic, atraumatic. Eyes: Extraocular muscles are intact. Pupils are equal, round and reactive to light and accommodation. Ears: No lesions. Nose appeared normal. Throat: No exudate or erythema. NECK: Supple. No JVD, no carotid bruit. No lymphadenopathy or thyromegaly. LUNGS: Diminished breath sounds. Clear to auscultation. Percussion note normal. Chest symmetrical. HEART: S1, S2, no S3. No murmurs. No cyanosis or clubbing. No ascites. Pulses: Dorsalis pedis and posterior tibial pulses +1 to +2 both sides. ABDOMEN: Soft. Non-tender. Bowel sounds active. No CVA tenderness. No mass felt. EXTREMITIES: No edema. Full range of motion of all extremities, equal. NEUROLOGIC: No focal deficit. Cranial nerves II through XII are grossly intact. No headache, no double vision or headache. SKIN: Not dry. Intact. Turgor-normal. LYMPHATIC: No palpable lymph nodes/no lymphedema. MUSCULOSKELETAL: Normal joints with no swelling. Muscle tone is normal. LAB REVIEW: 09/22/19 04:00 09/22/19 04:00 09/22/19 04:00: Sodium 140.7, Potassium 3.80, Chloride 108.8 H, Carbon Dioxide 24.7, Anion Gap 11.00, BUN 23.1 H, Creatinine 0.74, Estimated GFR (MDRD) 74.00, BUN/Creatinine Ratio 31.21, Glucose 118.7 H D, Calcium 8.95, Total Bilirubin 0.16 L, AST 15.7, ALT 17.6, Alkaline Phosphatase 79.0, Total Protein 5.56 L, Albumin 2.67 L, Globulin 2.89, Albumin/Globulin Ratio 0.92 09/22/19 04:00: WBC 7.02, RBC 3.35 L, Hgb 8.9 L, Hct 29.4 L, MCV 87.8, MCH 26.6 L, MCHC 30.3 L, RDW Coeff of Ray 14.2, Plt Count 206, Immature Gran % (Auto) 1.9, Neut % (Auto) 61.6, Lymph % (Auto) 28.8, [place] % (Auto) 6.7, Eos % (Auto) 0.6, Baso % (Auto) 0.4, Immature Gran # (Auto) 0.1, Neut # (Auto) 4.3, Lymph # (Auto) 2.0, [place] # (Auto) 0.5, Eos # (Auto) 0.0, Baso # (Auto) 0.0 ASSESSMENT: Please see below. 1. Fever resolved 2. Flu exposure 3. Dehydration significantly improved 4. Generalized weakness 5. Underlined chronic kidney disease 6. Hypertension PLAN: 1. PT to see today. 2. Anticipate discharge home tomorrow. 3. D/C IV fluids. Plan and coordination of the patient's care discussed in the presence of Zig Zag Stitcher and nurse. CONDITION: Stable SCRIBED BY: SADIE JOHNSON Wine Sales Representative scribed while in presence of service performed by Dr. Kuhn/Dee Miller APRN on 09/22/19 ([id number])
--- NOTE | 2019-09-22 14:46 | PN ---
DATE OF SERVICE: 09/22/19 SUBJECTIVE: The patient was seen and examined with the Nurse Practitioner. The patient condition is stable. Hydration status has improved. Kidney functions are better. CONDITION: Stable TIME SPENT: More than 30 minutes. Plan and coordination of the patient's care discussed in the presence of nurse. SUZY
[2019-09-22] MEDS: BACTROBAN TP SCH ×2 (17:46→20:16)
[2019-09-22] MEDS: PLAVIX PO SCH (20:17)
[2019-09-23 04:59] VITALS: BP 137/64; TEMP 98.9
[2019-09-23] MEDS: PULMICORT 0.5 MG/2 ML NEB SCH (05:03)
[2019-09-23] MEDS: LASIX TAB PO SCH (05:56)
--- NOTE | 2019-09-23 09:27 | PN ---
DATE OF SERVICE: 09/19/19 SUBJECTIVE: The patient was seen and examined with the Nurse Practitioner. The patient's hydration status seems to be somewhat better. She was able to swallow her pills this morning. Advised to make an effort to swallow. Talked to the nursing. Cardiovascular status is stable. Renal functions is going to be monitored. The patient was seen and examined with the Nurse Practitioner. TIME SPENT: More than 30 minutes. Plan and coordination of the patient's care discussed in the presence of nurse. SUZY
--- NOTE | 2019-09-23 09:42 | DS ---
DATE OF SERVICE: 09/23/19 FINAL DIAGNOSIS: 1. FEVER- FLU SYNDROME 2. DEHYDRATION/RENAL AZOTEMIA 3. HYPERTENSION 4. STAGE II DECUBITUS, COCCYX 5. ANEMIA 6. CORONARY ARTERY DISEASE 7. CHRONIC CONGESTIVE HEART FAILURE 8. HYPERLIPIDEMIA 9. COPD, OXYGEN 10. DIABETES MELLITUS, TYPE 2 11. CHRONIC KIDNEY DISEASE, STAGE 2-3 12. DEMENTIA 13. ARTHRITIS 14. FAILURE TO THRIVE 15. 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 B12 DEFICIENCY 18. FORMER SMOKER 19. APPENDECTOMY 20. CORONARY ARTERY STENT 21. HYSTERECTOMY 22. TONSILLECTOMY LAST VITALS Temp Pulse Resp BP Pulse Ox 98.9 F 75 18 137/64 99 09/23/19 04:57 09/23/19 04:57 09/23/19 04:57 09/23/19 04:57 09/23/19 04:57 DISCHARGE INSTRUCTIONS: 1. DISCHARGE TO [facility] (REH[facility]) IN [place], [place] 2. TRANSPORT PROVIDED BY FAMILY 3. DR. DEYANIRA FLANAGAN TO ASSUME CARE OF THE PATIENT AT [facility] 4. OXYGEN AT 2 LITERS PER NASAL CANNULA AT NIGHT AND PRN 5. NEBS BID PER ORDERS PRN 6. PHYSICAL THERAPY EVALUATION AND TREATMENT 7. OCCUPATIONAL THERAPY EVALUATION AND TREATMENT 8. VITAL SIGNS PER FACILITY PROTOCOL 9. INCONTINENT CARE PRN 10. BACTROBAN TO BUTTOCKS BID 11. DECUBITUS CARE BID 12. CBC, CMP IN ONE WEEK MEDICATIONS AT DISCHARGE: Acetaminophen (Tylenol) 650 mg PO Q4H PRN PRN Reason: Fever greater than 100.4 Last Admin: 09/21/19 08:52 Dose: 650 mg Documented by: Ascorbic Acid (Vitamin C) 500 mg PO BID [facility] Last Admin: 09/23/19 10:05 Dose: 500 mg Documented by: Bisacodyl (Dulcolax) 10 mg RC Q24H PRN PRN Reason: Constipation Budesonide (Pulmicort 0.5 Mg/2 Ml) 0.5 mg NEB RTBID [facility] Last Admin: 09/23/19 05:03 Dose: 0.5 mg Documented by: Carvedilol (Coreg) 12.5 mg PO BIDWM [facility] Last Admin: 09/23/19 10:05 Dose: 12.5 mg Documented by: Clopidogrel Bisulfate (Plavix) 75 mg PO BEDTIME [facility] Last Admin: 09/22/19 20:17 Dose: 75 mg Documented by: Diltiazem HCl (Cardizem) 60 mg PO Q12HR [facility] Last Admin: 09/23/19 10:05 Dose: 60 mg Documented by: Ferrous Sulfate (Ferrous Sulfate) 324 mg PO BID [facility] Last Admin: 09/23/19 10:05 Dose: 324 mg Documented by: Folic Acid (Folic Acid) 0.5 mg PO BID [facility] Last Admin: 09/23/19 10:05 Dose: 0.5 mg Documented by: Furosemide (Lasix Tab) 20 mg PO QDAC [facility] Last Admin: 09/23/19 05:56 Dose: 20 mg Documented by: CEFTRIAXONE/D5W 1 GM PREMIX (Rocephin 1 Gm/50 Ml D5w) 1 gm in 50 mls @ 75 mls/hr IV DAILY [facility] Stop: 09/24/19 08:59 Last Admin: 09/23/19 09:40 Dose: 75 mls/hr Documented by: Losartan Potassium (Cozaar) 50 mg PO BID [facility] Last Admin: 09/23/19 10:17 Dose: 50 mg Documented by: Magnesium Hydroxide (Milk Of Magnesia) 30 ml PO BEDTIME PRN PRN Reason: Constipation Memantine (Namenda) 10 mg PO BID [facility] Last Admin: 09/23/19 10:17 Dose: 10 mg Documented by: Metformin HCl (Glucophage) 1,000 mg PO BIDWM [facility] Last Admin: 09/23/19 10:05 Dose: 1,000 mg Documented by: Mupirocin (Bactroban) 1 applic TP BID [facility] Stop: 09/25/19 10:59 Last Admin: 09/22/19 20:16 Dose: 1 applic Documented by: NEW PRESCRIPTIONS: BACTROBAN TOPICAL BID TO BUTTOCKS BROVANA 2 ML INHALATION (NEBULIZER) BID PRN DUONEB 1 TREATMENT (NEBULIZER) TID PRN NASAL OXYGEN AT 2 LITERS PER CANNULA AT NIGHT AND PRN DISCONTINUED MEDICATIONS: TAMIFLU ROCEPHIN DIET INSTRUCTIONS: SOFT BOOST SUPPLEMENT TID DIETITIAN TO SEE FOR OPTIMAL NUTRITIONAL INTAKE ACTIVITY: UP TO CHAIR FOR MEALS AND PER PT SMOKING: NOT APPLICABLE DISEASE SPECIFIC EDUCATION: IMPORTANCE OF EATING MEALS, DRINKING SUPPLEMENT IMPORTANCE OF TURNING FREQUENTLY HOSPITAL COURSE: This 89 year old /WHITE F was hospitalized 09/18/19 from [facility] with fever and dehydration. Flu and UA were both negative however she did have non flu exposure. Kidney function was elevated indicating dehydration. The patient was started on Rocephin as well as Tamiflu. Also, IV fluids. No source of infection found. Fever likely due to dehydration. Her condition has improved with IV fluids. She was previously at [facility] for strengthening. The family now wishes for her to go to [facility] in [place], [place] for further PT/OT. She has significant weakness. Her room for improvement is rather small due to age and other comorbidities. She has a Stage 2 ulcer on the coccyx which was present on admission, positive for pseudomonas. Infection superficial. Will treat with Bactroban due to immobility and incontinence. We will discharge today in stable condition with cardiology followup at our office in one to two months. LAB REVIEW: 09/23/19 06:58: Sodium 141.0, Potassium 4.05, Chloride 109.3 H, Carbon Dioxide 26.6, Anion Gap 9.15, BUN 21.2 H, Creatinine 0.80, Estimated GFR (MDRD) 68.00, BUN/Creatinine Ratio 26.50, Glucose 116.2 H, Calcium 9.55, Total Bilirubin 0.35, AST 16.6, ALT 16.5, Alkaline Phosphatase 96.6, Total Protein 5.95 L, Albumin 2.91 L, Globulin 3.04, Albumin/Globulin Ratio 0.95 09/23/19 06:58: WBC 11.60 H, RBC 3.51 L, Hgb 9.4 L, Hct 30.8 L, MCV 87.7, MCH 26.8 L, MCHC 30.5 L, RDW Coeff of Ray 14.5, Plt Count 194, Immature Gran % (Auto) 1.2, Neut % (Auto) 79.1, Lymph % (Auto) 14.1, [place] % (Auto) 4.7, Eos % (Auto) 0.7, Baso % (Auto) 0.2, Immature Gran # (Auto) 0.1, Neut # (Auto) 9.2 H, Lymph # (Auto) 1.6, [place] # (Auto) 0.5, Eos # (Auto) 0.1, Baso # (Auto) 0.0 TIME SPENT: More than 60 minutes. MTDD
[2019-09-23] MEDS: BACTROBAN TP SCH (09:57)
[2019-09-23] MEDS: ROCEPHIN 1 GM/50 ML D5W 1 GM/50 ML BAG IV SCH (09:58)
[2019-09-23] MEDS: GLUCOPHAGE PO SCH (09:59)
[2019-09-23] MEDS: COREG PO SCH (09:59)
[2019-09-23] MEDS: COZAAR PO SCH (09:59)
[2019-09-23] MEDS: FERROUS SULFATE PO SCH (09:59)
[2019-09-23] MEDS: NAMENDA PO SCH (09:59)
[2019-09-23] MEDS: VITAMIN C PO SCH (10:00)
[2019-09-23] MEDS: CARDIZEM PO SCH (10:00)
[2019-09-23] MEDS: TAMIFLU PO SCH (10:00)
[2019-09-23] MEDS: FOLIC ACID PO SCH (10:00)
--- NOTE | 2019-09-23 10:47 | CM.DICTOOL ---
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 FORMER SMOKER APPENDECTOMY CORONARY ARTERY STENT HYSTERECTOMY TONSILLECTOMY LAST VITALS Temp Pulse Resp BP Pulse Ox 98.9 F 75 18 137/64 99 09/23/19 04:57 09/23/19 04:57 09/23/19 04:57 09/23/19 04:57 09/23/19 04:57 TAKE THESE MEDICATIONS AT HOME Acetaminophen (Tylenol) 650 mg PO Q4H PRN PRN Reason: Fever greater than 100.4 Last Admin: 09/21/19 08:52 Dose: 650 mg Documented by: Ascorbic Acid (Vitamin C) 500 mg PO BID [facility] Last Admin: 09/23/19 10:05 Dose: 500 mg Documented by: Bisacodyl (Dulcolax) 10 mg RC Q24H PRN PRN Reason: Constipation Budesonide (Pulmicort 0.5 Mg/2 Ml) 0.5 mg NEB RTBID [facility] Last Admin: 09/23/19 05:03 Dose: 0.5 mg Documented by: Carvedilol (Coreg) 12.5 mg PO BIDWM [facility] Last Admin: 09/23/19 10:05 Dose: 12.5 mg Documented by: Clopidogrel Bisulfate (Plavix) 75 mg PO BEDTIME [facility] Last Admin: 09/22/19 20:17 Dose: 75 mg Documented by: Diltiazem HCl (Cardizem) 60 mg PO Q12HR [facility] Last Admin: 09/23/19 10:05 Dose: 60 mg Documented by: Ferrous Sulfate (Ferrous Sulfate) 324 mg PO BID [facility] Last Admin: 09/23/19 10:05 Dose: 324 mg Documented by: Folic Acid (Folic Acid) 0.5 mg PO BID [facility] Last Admin: 09/23/19 10:05 Dose: 0.5 mg Documented by: Furosemide (Lasix Tab) 20 mg PO QDAC [facility] Last Admin: 09/23/19 05:56 Dose: 20 mg Documented by: CEFTRIAXONE/D5W 1 GM PREMIX (Rocephin 1 Gm/50 Ml D5w) 1 gm in 50 mls @ 75 mls/hr IV DAILY [facility] Stop: 09/24/19 08:59 Last Admin: 09/23/19 09:40 Dose: 75 mls/hr Documented by: Losartan Potassium (Cozaar) 50 mg PO BID [facility] Last Admin: 09/23/19 10:17 Dose: 50 mg Documented by: Magnesium Hydroxide (Milk Of Magnesia) 30 ml PO BEDTIME PRN PRN Reason: Constipation Memantine (Namenda) 10 mg PO BID [facility] Last Admin: 09/23/19 10:17 Dose: 10 mg Documented by: Metformin HCl (Glucophage) 1,000 mg PO BIDWM [facility] Last Admin: 09/23/19 10:05 Dose: 1,000 mg Documented by: Mupirocin (Bactroban) 1 applic TP BID [facility] Stop: 09/25/19 10:59 Last Admin: 09/22/19 20:16 Dose: 1 applic Documented by: ALLERGIES No Known Allergies Allergy (Verified 09/06/19 18:03) DISCONTINUED MEDICATIONS TAMIFLU ROCEPHIN NEW PRESCRIPTIONS: BACTROBAN TOPICAL BID TO BUTTOCKS BROVANA 2 ML INHALATION (NEBULIZER) BID PRN DUONEB 1 TREATMENT (NEBULIZER) TID PRN NASAL OXYGEN AT 2 LITERS PER CANNULA AT NIGHT AND PRN SMOKING: NOT APPLICABLE DISEASE SPECIFIC EDUCATION: IMPORTANCE OF EATING MEALS, DRINKING SUPPLEMENT IMPORTANCE OF TURNING FREQUENTLY LAB REVIEW: 09/23/19 06:58 09/23/19 06:58 09/23/19 06:58: Sodium 141.0, Potassium 4.05, Chloride 109.3 H, Carbon Dioxide 26.6, Anion Gap 9.15, BUN 21.2 H, Creatinine 0.80, Estimated GFR (MDRD) 68.00, BUN/Creatinine Ratio 26.50, Glucose 116.2 H, Calcium 9.55, Total Bilirubin 0.35, AST 16.6, ALT 16.5, Alkaline Phosphatase 96.6, Total Protein 5.95 L, Albumin 2.91 L, Globulin 3.04, Albumin/Globulin Ratio 0.95 09/23/19 06:58: WBC 11.60 H, RBC 3.51 L, Hgb 9.4 L, Hct 30.8 L, MCV 87.7, MCH 26.8 L, MCHC 30.5 L, RDW Coeff of Ray 14.5, Plt Count 194, Immature Gran % (Auto) 1.2, Neut % (Auto) 79.1, Lymph % (Auto) 14.1, [place] % (Auto) 4.7, Eos % (Auto) 0.7, Baso % (Auto) 0.2, Immature Gran # (Auto) 0.1, Neut # (Auto) 9.2 H, Lymph # (Auto) 1.6, [place] # (Auto) 0.5, Eos # (Auto) 0.1, Baso # (Auto) 0.0 PLAN: DISCHARGE TO [facility] ([facility]) IN [place], [place] TRANSPORT PROVIDED BY FAMILY DR. DEYANIRA FLANAGAN TO ASSUME CARE OF THE PATIENT AT [facility] DIET: SOFT BOOST SUPPLEMENT TID DIETITIAN TO SEE FOR OPTIMAL NUTRITIONAL INTAKE ACTIVITY: UP TO CHAIR FOR MEALS AND PER PT ORDERS: OXYGEN AT 2 LITERS PER NASAL CANNULA AT NIGHT AND PRN NEBS BID PER ORDERS PRN PHYSICAL THERAPY EVALUATION AND TREATMENT OCCUPATIONAL THERAPY EVALUATION AND TREATMENT VITAL SIGNS PER FACILITY PROTOCOL INCONTINENT CARE PRN BACTROBAN TO BUTTOCKS BID DECUBITUS CARE BID CBC, CMP IN ONE WEEK CODE STATUS: DNR PER PATIENT REQUEST MS. VOSS IS ALERT TO PERSON, PLACE AND SITUATION. SHE IS AGREEABLE TO PLACEMENT AT [facility] IN [place], [place]. SHE IS AGREEABLE TO TRANSPORT PER FAMILY; BROTHER TOYA. SHE HAS PORTABLE OXYGEN FOR TRANSPORT IF NEEDED. MS. VOSS IS ABLE TO FEED SELF, BUT IS DEPENDENT FOR BATHING, DRESSING AND PERSONAL CARE. MEAL INTAKES ARE FAIR AT 50-75%. SHE LIKES BOOST SUPPLEMENTS AND WILL DRINK THOSE WHEN PROVIDED. SHE IS UNABLE TO AMBULATE AT THIS TIME. SHE REQUIRES AT LEAST 2 STAFF MEMBERS FOR TRANSFER FROM THE BED TO THE CHAIR. SHE IS INCONTINENT OF BOWEL AND BLADDER. A STAGE II DECUBITUS IS NOTED TO THE COCCYX (PRESENT ON ADMISSION) AND SHEARING IS NOTED TO BOTH BUTTOCKS (PRESENT ON ADMISSION). ALL AREAS HAVE IMPROVED DURING HER HOSPITAL STAY. HYDRATION STATUS IS IMPROVED. SKIN TURGOR IS FAIR. NO OTHER AREAS OF SKIN BREAKDOWN ARE NOTED. CARDIOLOGY FOLLOW-UP (DR. KUHN) CAN BE ARRANGED PER FAMILY REQUEST. MD SENAIT HUFFMAN, [employer]ATOR
--- NOTE | 2019-09-23 10:50 | PN ---
DATE OF SERVICE: 09/20/19 SUBJECTIVE: The patient was seen and examined today. She is looking a lot better, alert, up and talking now. She is on Rocephin and steroids. She says that she is breathing a little bit better. REVIEW OF SYSTEMS: CONSTITUTIONAL: No night sweats. No fatigue, malaise, lethargy. No fever or chills. HEENT: Eyes: No visual changes. No eye pain. No eye discharge. ENT: No runny nose. No epistaxis. No sinus pain. No sore throat. No odynophagia. No congestion. RESPIRATORY: No cough, no congestion. No hemoptysis.Shortness of breath. CARDIOVASCULAR: No angina symptoms. No CHF symptoms. No atypical chest pain for CAD. No palpitations. No PND. No orthopnea. GASTROINTESTINAL: No abdominal pain. No nausea or vomiting. No diarrhea or constipation. No hematemesis. No hematochezia. Appetite seems to be improving. GENITOURINARY: No urgency. No frequency. No dysuria. No hematuria. No obstructive symptoms. No discharge. No pain. No significant abnormal bleeding. MUSCULOSKELETAL: No musculoskeletal pain; no joint swelling. NEUROLOGICAL: No headache. No neck pain. No syncope. No seizures. No dizziness. PSYCHIATRIC: Not anxious. No depression. No suicidal thoughts. No homicidal thoughts. SKIN: No rash. No lesions. No wounds. ENDOCRINE: No unexplained weight loss. No weight gain. HEMATOLOGIC/LYMPHATIC: No anemia. No purpura. No petechiae. No prolonged or excessive bleeding. No palpable lymph nodes. PHYSICAL EXAMINATION: HEENT: Head normocephalic, atraumatic. Eyes: Extraocular muscles are intact. Pupils are equal, round and reactive to light and accommodation. Ears: No lesions. Nose appeared normal. Throat: No exudate or erythema. NECK: Supple. No JVD, no carotid bruit. No lymphadenopathy or thyromegaly. LUNGS: Clear to auscultation. Percussion note normal. Chest symmetrical. HEART: S1, S2, no S3. No murmurs. No cyanosis or clubbing. No ascites. Pulses: Dorsalis pedis and posterior tibial pulses +1 to +2 bilaterally. ABDOMEN: Soft. Nontender. Bowel sounds active. No CVA tenderness. No mass felt. EXTREMITIES: No edema. Full range of motion of all extremities, equal. NEUROLOGIC: No focal deficit. Cranial nerves II through XII are grossly intact. No headache, no double vision or headache. SKIN: Not dry. Intact. Turgor - normal. LYMPHATIC: No palpable lymph nodes/no lymphedema. MUSCULOSKELETAL: Normal joints with no swelling. Muscle tone is normal. ASSESSMENT: 1. Dehydration seems to be resolved with normal skin turgor 2. Cardiovascular and respiratory status seems to be stable. PLAN: 1. IV fluids are going to be discontinued TIME SPENT: More than 30 minutes. Plan and coordination of the patient's care discussed in the presence of nurse. SUZY
--- NOTE | 2019-09-23 13:22 | PN ---
DATE OF SERVICE: 09/21/19 SUBJECTIVE: 89 year old white female hospitalized with dehydration and renal azotemia. The patient's kidney functions are better. She is feeling a lot better. She is alert and looks somewhat pale. According to her the appetite has improved. A couple of days ago she was not happy with her appetite. REVIEW OF SYSTEMS: CONSTITUTIONAL: No night sweats. No fatigue, malaise, lethargy. No fever or chills. HEENT: Eyes: No visual changes. No eye pain. No eye discharge. ENT: No runny nose. No epistaxis. No sinus pain. No sore throat. No odynophagia. No congestion. RESPIRATORY: No cough, no congestion. No hemoptysis. No shortness of breath. CARDIOVASCULAR: No angina symptoms. No CHF symptoms. No atypical chest pain for CAD. No palpitations. No PND. No orthopnea. GASTROINTESTINAL: No abdominal pain. No nausea or vomiting. No diarrhea or constipation. No hematemesis. No hematochezia. GENITOURINARY: No urgency. No frequency. No dysuria. No hematuria. No obstructive symptoms. No discharge. No pain. No significant abnormal bleeding. MUSCULOSKELETAL: No musculoskeletal pain; no joint swelling. NEUROLOGICAL: No headache. No neck pain. No syncope. No seizures. No dizziness. PSYCHIATRIC: Not anxious. No depression. No suicidal thoughts. No homicidal thoughts. SKIN: No rash. No lesions. No wounds. ENDOCRINE: No unexplained weight loss. No weight gain. HEMATOLOGIC/LYMPHATIC: No anemia. No purpura. No petechiae. No prolonged or excessive bleeding. No palpable lymph nodes. PHYSICAL EXAMINATION: VITAL SIGNS: Temperature 98.1, pulse 70, respiratory rate 18, blood pressure 147/62 and pulse ox 96%. HEENT: Head normocephalic, atraumatic. Eyes: Extraocular muscles are intact. Pupils are equal, round and reactive to light and accommodation. Ears: No lesions. Nose appeared normal. Throat: No exudate or erythema. NECK: Supple. No JVD, no carotid bruit. No lymphadenopathy or thyromegaly. LUNGS:Decreased breath sounds but clear to auscultation. Percussion note normal. Chest symmetrical. HEART: S1, S2, no S3. No murmurs. No cyanosis or clubbing. No ascites. Pulses: Dorsalis pedis and posterior tibial pulses +1 to +2 bilaterally. ABDOMEN: Soft. Nontender. Bowel sounds active. No CVA tenderness. No mass felt. EXTREMITIES: No edema. Full range of motion of all extremities, equal. NEUROLOGIC: No focal deficit. Cranial nerves II through XII are grossly intact. No headache, no double vision or headache. SKIN: Not dry. Intact. Turgor - normal. LYMPHATIC: No palpable lymph nodes/no lymphedema. MUSCULOSKELETAL: Normal joints with no swelling. Muscle tone is normal. LABS: Hgb 8.7, hct 28, WBC 6,800 normal differential. creatinine 0.8, BUN 26,. potassium 4.1. T4 TSH normal ASSESSMENT: 1. Dehydration/renal azotemia, resolved the patient has decrease in the appetite overall status seems to be declining. She is underweight with some malnutrition. CONDITION: Stable. TIME SPENT: More than 30 minutes. Plan and coordination of the patient's care discussed in the presence of nurse. SUZY
--- NOTE | 2019-09-25 13:20 | PN ---
DATE OF SERVICE: 09/23/19 SUBJECTIVE: The patient was seen and examined this morning with Nurse Practitioner. The patient's condition is stable. She is eating a lot better. Hydration status has improved. No fever. The patient probably had febrile illness likely viral. It wasn't Influenza A or B but has resolved. Kidney functions are a lot better. Azotemia seems to have resolved. CONDITION: Stable. TIME SPENT: More than 30 minutes. Plan and coordination of the patient's care discussed in the presence of nurse. SUZY
--- NOTE | 2019-09-25 13:21 | PN ---
09/18/19: Level 5 09/19/19: Intermediate 09/20/19: Intermediate 09/21/19: Intermediate 09/22/19: Intermediate 09/23/19: D as in discharge MTDD
== END 2019-09-23 13:45 | DRG 641 ==
LOC: ED 18:35 → MEDSURG A 20:40
PROVIDERS: ADMIT Internal Medicine; ATTEND Internal Medicine
DX: R09.81 Nasal congestion; M19.90 Unspecified osteoarthritis, unspecified site; R05 Cough; E11.9 Type 2 diabetes mellitus without complications; E86.0 Dehydration; R62.7 Adult failure to thrive; J44.9 Chronic obstructive pulmonary disease, unspecified; I25.10 Atherosclerotic heart disease of native coronary artery without angina pectoris; R79.89 Other specified abnormal findings of blood chemistry; N18.3 Chronic kidney disease, stage 3 (moderate); E78.5 Hyperlipidemia, unspecified; E53.8 Deficiency of other specified B group vitamins; R06.2 Wheezing; R63.4 Abnormal weight loss; I50.32 Chronic diastolic (congestive) heart failure; F03.90 Unspecified dementia, unspecified severity, without behavioral disturbance, psychotic disturbance, mood disturbance, and anxiety; I10 Essential (primary) hypertension; R53.1 Weakness; D64.9 Anemia, unspecified; L89.152 Pressure ulcer of sacral region, stage 2